=== PATIENT | female | born 1935 | race Caucasian/White ===

== ENCOUNTER 2018-03-08 13:58 | Inpatient (IN) | payer SELFPAY ==
[~2018-03-08] VITALS: Ht 167.6 cm; Wt 97.4 kg
[~2018-03-08 13:58] MED LIST: AMLO5 PO; Amoxicillin500 MG PO; INSULANPEN SC; LOSA50 PO; Triamcinolone A15 G3 TD
[2018-03-08 15:23] LABS: BASOPHILS ABSOLUTE AUTO 0.05 K/mm3 (0.00-0.23); BASOPHILS PERCENT AUTO 1 % (0-2); EOSINOPHILS PERCENT AUTO 1 % (0-6); Hematocrit 38.7 % (33.0-51.0); Hemoglobin 12.6 g/dL (11.5-16.0); IMMATURE GRAN ABSOLUTE AUTO 0.06 K/mm3 (0.00-0.10); IMMATURE GRAN PERCENT AUTO 1 % (0-1); LYMPHOCYTES ABSOLUTE AUTO 1.66 K/mm3 (0.84-5.20); LYMPHOCYTES PERCENT AUTO 17 % (21-46); MONOCYTES ABSOLUTE AUTO 0.74 K/mm3 (0.16-1.47); MONOCYTES PERCENT AUTO 8 % (4-13); Mean Corpuscular HGB 27.4 pg (26.0-34.0); Mean Corpuscular HGB Conc 32.6 g/dL (31.5-36.5); Mean Corpuscular Volume 84 fL (80-100); Mean Platelet Volume 10.2 fL (9.1-12.4); NEUTROPHILS ABSOLUTE AUTO 6.98 K/mm3 (1.96-9.15); NEUTROPHILS PERCENT AUTO 73 % (41-73); Platelet Count 282 K/mm3 (150-400); RDW Coefficient Variation 13.2 % (11.7-14.2); RDW Standard Deviation 40.4 fL (35.1-46.3); White Blood Cell Count 9.59 K/mm3 (4.00-11.30)
[2018-03-08 15:43] LABS: Alanine Aminotransfer (ALT/SGP 26 U/L (12-78); Albumin, Blood 3.4 g/dL (3.4-5.0); Albumin/Globulin Ratio 0.8 (0.8-1.8); Alk Phos 122 U/L (50-136); Anion Gap 7 mmol/L (6-16); Aspartate Aminotrans (AST/SGOT 16 U/L (12-37); Bilirubin, Total 0.4 mg/dL (0.1-1.0); Blood Urea Nitrogen 21 mg/dL (8-24); Bun/Creatinine Ratio 35.7 (12.0-20.0); CO2, Blood 26 mmol/L (21-32); Calcium, Blood 9.3 mg/dL (8.5-10.1); Chloride, Blood 99 mmol/L (98-108); Creatinine, Blood 0.59 mg/dL (0.40-1.00); Globulin, Blood 4.4 g/dL (2.2-4.0); Glomerular Filtration Rate >60 (60-); Glucose, Blood 401 mg/dL (70-99); Potassium, Blood 4.5 mmol/L (3.5-5.5); Sodium, Blood 132 mmol/L (136-145); Total Protein, Blood 7.8 g/dL (6.4-8.2)
[2018-03-08] MEDS ORDERED: Humalog Mi100 UNIT/4 SC (16:44)
[2018-03-08] MEDS ORDERED: Bumetanide0.5 MG PO (19:03)
[2018-03-09 04:03] LABS: BASOPHILS ABSOLUTE AUTO 0.04 K/mm3 (0.00-0.23); BASOPHILS PERCENT AUTO 1 % (0-2); EOSINOPHILS ABSOLUTE AUTO 0.14 K/mm3 (0.00-0.68); EOSINOPHILS PERCENT AUTO 2 % (0-6); Hematocrit 35.1 % (33.0-51.0); Hemoglobin 11.3 g/dL (11.5-16.0); IMMATURE GRAN ABSOLUTE AUTO 0.02 K/mm3 (0.00-0.10); IMMATURE GRAN PERCENT AUTO 0 % (0-1); LYMPHOCYTES ABSOLUTE AUTO 2.16 K/mm3 (0.84-5.20); LYMPHOCYTES PERCENT AUTO 26 % (21-46); MONOCYTES ABSOLUTE AUTO 0.83 K/mm3 (0.16-1.47); MONOCYTES PERCENT AUTO 10 % (4-13); Mean Corpuscular HGB 26.8 pg (26.0-34.0); Mean Corpuscular HGB Conc 32.2 g/dL (31.5-36.5); Mean Corpuscular Volume 83 fL (80-100); Mean Platelet Volume 10.3 fL (9.1-12.4); NEUTROPHILS ABSOLUTE AUTO 5.19 K/mm3 (1.96-9.15); NEUTROPHILS PERCENT AUTO 62 % (41-73); Platelet Count 278 K/mm3 (150-400); RDW Coefficient Variation 13.2 % (11.7-14.2); RDW Standard Deviation 40.1 fL (35.1-46.3); Red Blood Cell Count 4.21 M/mm3 (3.80-5.20); White Blood Cell Count 8.38 K/mm3 (4.00-11.30)
[2018-03-09 04:24] LABS: Anion Gap 7 mmol/L (6-16); Blood Urea Nitrogen 17 mg/dL (8-24); Bun/Creatinine Ratio 27.5 (12.0-20.0); CO2, Blood 27 mmol/L (21-32); Chloride, Blood 104 mmol/L (98-108); Creatinine, Blood 0.62 mg/dL (0.40-1.00); Glomerular Filtration Rate >60 (60-); Glucose, Blood 169 mg/dL (70-99); Potassium, Blood 3.9 mmol/L (3.5-5.5); Sodium, Blood 138 mmol/L (136-145)
[2018-03-10 04:48] LABS: BASOPHILS ABSOLUTE AUTO 0.05 K/mm3 (0.00-0.23); BASOPHILS PERCENT AUTO 1 % (0-2); EOSINOPHILS ABSOLUTE AUTO 0.18 K/mm3 (0.00-0.68); EOSINOPHILS PERCENT AUTO 2 % (0-6); Hematocrit 35.1 % (33.0-51.0); Hemoglobin 11.4 g/dL (11.5-16.0); IMMATURE GRAN ABSOLUTE AUTO 0.03 K/mm3 (0.00-0.10); IMMATURE GRAN PERCENT AUTO 0 % (0-1); LYMPHOCYTES ABSOLUTE AUTO 1.88 K/mm3 (0.84-5.20); LYMPHOCYTES PERCENT AUTO 25 % (21-46); MONOCYTES PERCENT AUTO 11 % (4-13); Mean Corpuscular HGB 27.3 pg (26.0-34.0); Mean Corpuscular HGB Conc 32.5 g/dL (31.5-36.5); Mean Corpuscular Volume 84 fL (80-100); NEUTROPHILS ABSOLUTE AUTO 4.52 K/mm3 (1.96-9.15); NEUTROPHILS PERCENT AUTO 61 % (41-73); Platelet Count 275 K/mm3 (150-400); RDW Coefficient Variation 13.5 % (11.7-14.2); RDW Standard Deviation 41.9 fL (35.1-46.3); Red Blood Cell Count 4.18 M/mm3 (3.80-5.20); White Blood Cell Count 7.46 K/mm3 (4.00-11.30)
[2018-03-10 05:10] LABS: Anion Gap 8 mmol/L (6-16); Blood Urea Nitrogen 18 mg/dL (8-24); Bun/Creatinine Ratio 25.4 (12.0-20.0); CO2, Blood 26 mmol/L (21-32); Calcium, Blood 8.7 mg/dL (8.5-10.1); Chloride, Blood 106 mmol/L (98-108); Creatinine, Blood 0.71 mg/dL (0.40-1.00); Glomerular Filtration Rate >60 (60-); Glucose, Blood 156 mg/dL (70-99); Potassium, Blood 4.1 mmol/L (3.5-5.5); Sodium, Blood 140 mmol/L (136-145)
[2018-03-10 05:15] LABS: Thyroid Stimulating Hormone 0.285 uIU/mL (0.360-4.800)
[2018-03-12 04:58] LABS: BASOPHILS ABSOLUTE AUTO 0.03 K/mm3 (0.00-0.23); BASOPHILS PERCENT AUTO 1 % (0-2); EOSINOPHILS ABSOLUTE AUTO 0.21 K/mm3 (0.00-0.68); EOSINOPHILS PERCENT AUTO 4 % (0-6); Hematocrit 33.6 % (33.0-51.0); Hemoglobin 10.8 g/dL (11.5-16.0); IMMATURE GRAN ABSOLUTE AUTO 0.03 K/mm3 (0.00-0.10); IMMATURE GRAN PERCENT AUTO 1 % (0-1); LYMPHOCYTES ABSOLUTE AUTO 1.66 K/mm3 (0.84-5.20); LYMPHOCYTES PERCENT AUTO 28 % (21-46); MONOCYTES ABSOLUTE AUTO 0.64 K/mm3 (0.16-1.47); MONOCYTES PERCENT AUTO 11 % (4-13); Mean Corpuscular HGB 27.1 pg (26.0-34.0); Mean Corpuscular HGB Conc 32.1 g/dL (31.5-36.5); Mean Corpuscular Volume 84 fL (80-100); NEUTROPHILS ABSOLUTE AUTO 3.35 K/mm3 (1.96-9.15); NEUTROPHILS PERCENT AUTO 57 % (41-73); Platelet Count 287 K/mm3 (150-400); RDW Coefficient Variation 13.6 % (11.7-14.2); RDW Standard Deviation 41.9 fL (35.1-46.3); Red Blood Cell Count 3.99 M/mm3 (3.80-5.20); White Blood Cell Count 5.92 K/mm3 (4.00-11.30)
[2018-03-12 05:25] LABS: Anion Gap 8 mmol/L (6-16); Blood Urea Nitrogen 22 mg/dL (8-24); Bun/Creatinine Ratio 30.1 (12.0-20.0); CO2, Blood 27 mmol/L (21-32); Calcium, Blood 8.8 mg/dL (8.5-10.1); Chloride, Blood 107 mmol/L (98-108); Creatinine, Blood 0.73 mg/dL (0.40-1.00); Glomerular Filtration Rate >60 (60-); Glucose, Blood 92 mg/dL (70-99); Sodium, Blood 142 mmol/L (136-145)
[2018-03-14 04:51] LABS: BASOPHILS ABSOLUTE AUTO 0.04 K/mm3 (0.00-0.23); BASOPHILS PERCENT AUTO 1 % (0-2); EOSINOPHILS ABSOLUTE AUTO 0.18 K/mm3 (0.00-0.68); EOSINOPHILS PERCENT AUTO 3 % (0-6); Hematocrit 32.6 % (33.0-51.0); Hemoglobin 10.3 g/dL (11.5-16.0); IMMATURE GRAN ABSOLUTE AUTO 0.03 K/mm3 (0.00-0.10); IMMATURE GRAN PERCENT AUTO 1 % (0-1); LYMPHOCYTES PERCENT AUTO 26 % (21-46); MONOCYTES ABSOLUTE AUTO 0.83 K/mm3 (0.16-1.47); MONOCYTES PERCENT AUTO 13 % (4-13); Mean Corpuscular HGB 26.8 pg (26.0-34.0); Mean Corpuscular HGB Conc 31.6 g/dL (31.5-36.5); Mean Corpuscular Volume 85 fL (80-100); Mean Platelet Volume 10.5 fL (9.1-12.4); NEUTROPHILS ABSOLUTE AUTO 3.77 K/mm3 (1.96-9.15); NEUTROPHILS PERCENT AUTO 58 % (41-73); Platelet Count 283 K/mm3 (150-400); RDW Coefficient Variation 13.6 % (11.7-14.2); RDW Standard Deviation 41.9 fL (35.1-46.3); Red Blood Cell Count 3.84 M/mm3 (3.80-5.20); White Blood Cell Count 6.55 K/mm3 (4.00-11.30)
[2018-03-14 05:11] LABS: Anion Gap 6 mmol/L (6-16); Blood Urea Nitrogen 19 mg/dL (8-24); Bun/Creatinine Ratio 25.6 (12.0-20.0); CO2, Blood 27 mmol/L (21-32); Calcium, Blood 8.5 mg/dL (8.5-10.1); Chloride, Blood 106 mmol/L (98-108); Creatinine, Blood 0.74 mg/dL (0.40-1.00); Glomerular Filtration Rate >60 (60-); Glucose, Blood 112 mg/dL (70-99); Potassium, Blood 4.2 mmol/L (3.5-5.5); Sodium, Blood 139 mmol/L (136-145)
[2018-03-16] MEDS ORDERED: ACET325 PO (11:15)
[2018-03-16] MEDS ORDERED: AMLO5 PO (11:15)
[2018-03-16] MEDS ORDERED: ASCO500 PO (11:15)
[2018-03-16] MEDS ORDERED: HUMALOG JU100 UNIT/1 (11:16)
[2018-03-16] MEDS ORDERED: INSULANPEN SC (11:16)
[2018-03-16] MEDS ORDERED: SACC250C PO (11:17)
[2018-03-16] MEDS ORDERED: ZINC220 PO (11:17)
[2018-03-16] MEDS ORDERED: LOSA50 PO (11:17)
[2018-03-16] MEDS ORDERED: CLIN300 PO (11:18)
== END 2018-03-16 15:39 | disposition home or self-care (01) | DRG 593 ==
LOC: ER 13:58 → MEDS 18:50 → ENPENDDIS 03-16 11:05 → MEDS 03-16 15:39
PROVIDERS: Emergency Medicine; Hospitalist; Internal Medicine
DX: L89.622 Pressure ulcer of left heel, stage 2 (principal); L03.116 Cellulitis of left lower limb; L03.115 Cellulitis of right lower limb; Z79.4 Long term (current) use of insulin; M19.90 Unspecified osteoarthritis, unspecified site; E11.65 Type 2 diabetes mellitus with hyperglycemia; I10 Essential (primary) hypertension; Z91.14 Patient's other noncompliance with medication regimen; L85.3 Xerosis cutis; E11.42 Type 2 diabetes mellitus with diabetic polyneuropathy; E11.51 Type 2 diabetes mellitus with diabetic peripheral angiopathy without gangrene; E11.621 Type 2 diabetes mellitus with foot ulcer; I83.029 Varicose veins of left lower extremity with ulcer of unspecified site; E66.9 Obesity, unspecified
CPT/HCPCS: 36415; 80048; 80053; 82947; 83036; 83605; 84443; 85025; 87040; 87070; 87075; 87077; 87147; 87186; 87205; 93005; 93010; 93922; 93970; 96365; 96372; 99284-25; J0690; J1650; J1815; J7030

== ENCOUNTER 2018-03-21 09:23 | Emergency (ER) | payer SELFPAY ==
[~2018-03-21] VITALS: Ht 167.6 cm; Wt 108.9 kg
[~2018-03-21 09:23] MED LIST changes: +ACET325 PO; +ASCO500 PO; +Bumetanide0.5 MG PO; +CLIN300 PO; +HUMALOG JU100 UNIT/1; +Humalog Mi100 UNIT/4 SC; +SACC250C PO; +ZINC220 PO
[2018-03-21 11:59] LABS: BASOPHILS ABSOLUTE AUTO 0.06 K/mm3 (0.00-0.23); BASOPHILS PERCENT AUTO 1 % (0-2); EOSINOPHILS ABSOLUTE AUTO 0.09 K/mm3 (0.00-0.68); EOSINOPHILS PERCENT AUTO 1 % (0-6); Hematocrit 31.8 % (33.0-51.0); Hemoglobin 10.4 g/dL (11.5-16.0); IMMATURE GRAN ABSOLUTE AUTO 0.03 K/mm3 (0.00-0.10); IMMATURE GRAN PERCENT AUTO 0 % (0-1); LYMPHOCYTES ABSOLUTE AUTO 1.45 K/mm3 (0.84-5.20); LYMPHOCYTES PERCENT AUTO 16 % (21-46); MONOCYTES ABSOLUTE AUTO 0.67 K/mm3 (0.16-1.47); MONOCYTES PERCENT AUTO 7 % (4-13); Mean Corpuscular HGB 27.7 pg (26.0-34.0); Mean Corpuscular HGB Conc 32.7 g/dL (31.5-36.5); Mean Corpuscular Volume 85 fL (80-100); NEUTROPHILS ABSOLUTE AUTO 6.92 K/mm3 (1.96-9.15); NEUTROPHILS PERCENT AUTO 75 % (41-73); Platelet Count 347 K/mm3 (150-400); RDW Coefficient Variation 13.4 % (11.7-14.2); RDW Standard Deviation 41.6 fL (35.1-46.3); Red Blood Cell Count 3.75 M/mm3 (3.80-5.20); White Blood Cell Count 9.22 K/mm3 (4.00-11.30)
[2018-03-21 12:14] LABS: Anion Gap 6 mmol/L (6-16); Blood Urea Nitrogen 20 mg/dL (8-24); Bun/Creatinine Ratio 31.5 (12.0-20.0); CO2, Blood 25 mmol/L (21-32); Chloride, Blood 105 mmol/L (98-108); Creatinine, Blood 0.63 mg/dL (0.40-1.00); Glomerular Filtration Rate >60 (60-); Glucose, Blood 230 mg/dL (70-99); Potassium, Blood 4.6 mmol/L (3.5-5.5); Sodium, Blood 136 mmol/L (136-145)
== END 2018-03-21 16:30 | disposition home or self-care (01) ==
LOC: ER 09:23
PROVIDERS: Emergency Medicine
DX: E11.622 Type 2 diabetes mellitus with other skin ulcer (principal); L97.329 Non-pressure chronic ulcer of left ankle with unspecified severity; L03.116 Cellulitis of left lower limb; E11.9 Type 2 diabetes mellitus without complications; Z88.2 Allergy status to sulfonamides; Z88.8 Allergy status to other drugs, medicaments and biological substances; Z79.899 Other long term (current) drug therapy; Z79.4 Long term (current) use of insulin
CPT/HCPCS: 36415; 73723; 80048; 85025; 85651; 86140; 99284-25; A9577

== ENCOUNTER 2018-03-29 14:00 | Day surgery (SDC) | payer SELFPAY | END 2018-03-29 17:20 | disposition home or self-care (01) | LOC: WOUND 14:00 | PROC: 0HBMXZZ Excision of Right Foot Skin, External Approach (ICD-10-PCS; principal; 2018-03-29) | DX: E11.621 Type 2 diabetes mellitus with foot ulcer (principal); L97.512 Non-pressure chronic ulcer of other part of right foot with fat layer exposed; I87.2 Venous insufficiency (chronic) (peripheral); I70.25 Atherosclerosis of native arteries of other extremities with ulceration; R60.0 Localized edema | CPT/HCPCS: G0463 ==

== ENCOUNTER 2018-04-05 14:45 | Day surgery (SDC) | payer SELFPAY | END 2018-04-05 16:00 | disposition home or self-care (01) | LOC: WOUND 14:45 | DX: I70.238 Atherosclerosis of native arteries of right leg with ulceration of other part of lower leg (principal); I70.248 Atherosclerosis of native arteries of left leg with ulceration of other part of lower leg; I70.235 Atherosclerosis of native arteries of right leg with ulceration of other part of foot; I70.245 Atherosclerosis of native arteries of left leg with ulceration of other part of foot; E11.622 Type 2 diabetes mellitus with other skin ulcer; E11.621 Type 2 diabetes mellitus with foot ulcer; L97.822 Non-pressure chronic ulcer of other part of left lower leg with fat layer exposed; L97.812 Non-pressure chronic ulcer of other part of right lower leg with fat layer exposed; L97.529 Non-pressure chronic ulcer of other part of left foot with unspecified severity; L97.519 Non-pressure chronic ulcer of other part of right foot with unspecified severity; I87.2 Venous insufficiency (chronic) (peripheral); R60.0 Localized edema ==

== ENCOUNTER 2018-04-12 00:15 | Day surgery (SDC) | payer OTHER | END 2018-04-12 22:41 | disposition home or self-care (01) | LOC: WOUND 00:15 | DX: I70.238 Atherosclerosis of native arteries of right leg with ulceration of other part of lower leg (principal); I70.248 Atherosclerosis of native arteries of left leg with ulceration of other part of lower leg; E11.622 Type 2 diabetes mellitus with other skin ulcer; L97.822 Non-pressure chronic ulcer of other part of left lower leg with fat layer exposed; L97.812 Non-pressure chronic ulcer of other part of right lower leg with fat layer exposed; I87.2 Venous insufficiency (chronic) (peripheral); R60.0 Localized edema ==

== ENCOUNTER 2018-04-19 09:21 | Day surgery (SDC) | payer SELFPAY | END 2018-04-19 22:46 | disposition home or self-care (01) | LOC: WOUND 09:21 | DX: I87.2 Venous insufficiency (chronic) (peripheral) (principal); E11.622 Type 2 diabetes mellitus with other skin ulcer; L97.812 Non-pressure chronic ulcer of other part of right lower leg with fat layer exposed; L97.822 Non-pressure chronic ulcer of other part of left lower leg with fat layer exposed; E11.621 Type 2 diabetes mellitus with foot ulcer; R60.0 Localized edema; I70.25 Atherosclerosis of native arteries of other extremities with ulceration ==

== ENCOUNTER 2018-07-05 00:13 | Day surgery (SDC) | payer SELFPAY | END 2018-07-05 22:49 | disposition home or self-care (01) | LOC: WOUND 00:13 | DX: E11.621 Type 2 diabetes mellitus with foot ulcer (principal); L89.312 Pressure ulcer of right buttock, stage 2; L97.822 Non-pressure chronic ulcer of other part of left lower leg with fat layer exposed; E11.622 Type 2 diabetes mellitus with other skin ulcer; I87.2 Venous insufficiency (chronic) (peripheral); R60.0 Localized edema; I70.25 Atherosclerosis of native arteries of other extremities with ulceration | CPT/HCPCS: G0463 ==

== ENCOUNTER 2018-07-12 10:30 | Day surgery (SDC) | payer SELFPAY | END 2018-07-12 23:05 | disposition home or self-care (01) | LOC: WOUND 10:30 | DX: E11.622 Type 2 diabetes mellitus with other skin ulcer (principal); L97.822 Non-pressure chronic ulcer of other part of left lower leg with fat layer exposed; L89.312 Pressure ulcer of right buttock, stage 2; I87.2 Venous insufficiency (chronic) (peripheral); R60.0 Localized edema; I70.25 Atherosclerosis of native arteries of other extremities with ulceration ==

== ENCOUNTER 2018-07-19 10:20 | Day surgery (SDC) | payer SELFPAY | END 2018-07-19 22:41 | disposition home or self-care (01) | LOC: WOUND 10:20 | PROC: 0HBLXZZ Excision of Left Lower Leg Skin, External Approach (ICD-10-PCS; principal; 2018-07-19) | DX: E11.622 Type 2 diabetes mellitus with other skin ulcer (principal); L97.229 Non-pressure chronic ulcer of left calf with unspecified severity; E11.621 Type 2 diabetes mellitus with foot ulcer ==

== ENCOUNTER 2018-07-26 00:08 | Day surgery (SDC) | payer SELFPAY | END 2018-07-26 22:48 | disposition home or self-care (01) | LOC: WOUND 00:08 | DX: E11.621 Type 2 diabetes mellitus with foot ulcer (principal); L97.822 Non-pressure chronic ulcer of other part of left lower leg with fat layer exposed; E11.622 Type 2 diabetes mellitus with other skin ulcer; L89.312 Pressure ulcer of right buttock, stage 2; I87.2 Venous insufficiency (chronic) (peripheral); R60.0 Localized edema; I70.25 Atherosclerosis of native arteries of other extremities with ulceration ==

== ENCOUNTER 2018-08-02 00:58 | Day surgery (SDC) | payer SELFPAY | END 2018-08-02 23:59 | disposition home or self-care (01) | LOC: WOUND 00:58 | DX: Z48.00 Encounter for change or removal of nonsurgical wound dressing (principal); E11.622 Type 2 diabetes mellitus with other skin ulcer; E11.621 Type 2 diabetes mellitus with foot ulcer; L97.822 Non-pressure chronic ulcer of other part of left lower leg with fat layer exposed; L89.312 Pressure ulcer of right buttock, stage 2; I87.2 Venous insufficiency (chronic) (peripheral) | CPT/HCPCS: G0463 ==

== ENCOUNTER 2018-08-09 09:45 | Day surgery (SDC) | payer SELFPAY | END 2018-08-09 15:36 | disposition home health service (06) | LOC: WOUND 09:45 | DX: I70.248 Atherosclerosis of native arteries of left leg with ulceration of other part of lower leg (principal); E11.622 Type 2 diabetes mellitus with other skin ulcer; L97.822 Non-pressure chronic ulcer of other part of left lower leg with fat layer exposed; L89.312 Pressure ulcer of right buttock, stage 2; I87.2 Venous insufficiency (chronic) (peripheral); R60.0 Localized edema; Z79.4 Long term (current) use of insulin ==

== ENCOUNTER 2018-08-16 10:30 | Day surgery (SDC) | payer SELFPAY | END 2018-08-16 22:50 | disposition home or self-care (01) | LOC: WOUND 10:30 | DX: E11.622 Type 2 diabetes mellitus with other skin ulcer (principal); L97.822 Non-pressure chronic ulcer of other part of left lower leg with fat layer exposed; L89.312 Pressure ulcer of right buttock, stage 2; E11.51 Type 2 diabetes mellitus with diabetic peripheral angiopathy without gangrene; R60.0 Localized edema; I70.25 Atherosclerosis of native arteries of other extremities with ulceration ==

== ENCOUNTER 2018-08-23 10:15 | Day surgery (SDC) | payer SELFPAY | END 2018-08-23 22:57 | disposition home or self-care (01) | LOC: WOUND 10:15 | DX: E11.622 Type 2 diabetes mellitus with other skin ulcer (principal); I70.248 Atherosclerosis of native arteries of left leg with ulceration of other part of lower leg; L97.822 Non-pressure chronic ulcer of other part of left lower leg with fat layer exposed; L89.312 Pressure ulcer of right buttock, stage 2; E11.51 Type 2 diabetes mellitus with diabetic peripheral angiopathy without gangrene; R60.0 Localized edema ==

== ENCOUNTER 2018-09-06 00:54 | Day surgery (SDC) | payer SELFPAY | END 2018-09-07 23:15 | disposition home or self-care (01) | LOC: WOUND 00:54 | DX: E11.621 Type 2 diabetes mellitus with foot ulcer (principal); L97.822 Non-pressure chronic ulcer of other part of left lower leg with fat layer exposed; L89.312 Pressure ulcer of right buttock, stage 2; E11.622 Type 2 diabetes mellitus with other skin ulcer; I87.2 Venous insufficiency (chronic) (peripheral); R60.0 Localized edema; I70.25 Atherosclerosis of native arteries of other extremities with ulceration; Z79.4 Long term (current) use of insulin | CPT/HCPCS: G0463 ==

== ENCOUNTER 2018-09-12 10:00 | Day surgery (SDC) | payer SELFPAY | END 2018-09-13 13:11 | disposition home or self-care (01) | LOC: WOUND 10:00 | DX: E11.621 Type 2 diabetes mellitus with foot ulcer (principal); L97.822 Non-pressure chronic ulcer of other part of left lower leg with fat layer exposed; E11.622 Type 2 diabetes mellitus with other skin ulcer; L89.312 Pressure ulcer of right buttock, stage 2; I87.2 Venous insufficiency (chronic) (peripheral); R60.0 Localized edema; I70.25 Atherosclerosis of native arteries of other extremities with ulceration; Z79.4 Long term (current) use of insulin ==

== ENCOUNTER 2018-09-27 00:41 | Day surgery (SDC) | payer MEDICARE, SELFPAY | END 2018-09-27 12:00 | disposition home or self-care (01) | LOC: WOUND 00:41 | DX: E11.621 Type 2 diabetes mellitus with foot ulcer (principal); E11.622 Type 2 diabetes mellitus with other skin ulcer; E11.51 Type 2 diabetes mellitus with diabetic peripheral angiopathy without gangrene; I70.248 Atherosclerosis of native arteries of left leg with ulceration of other part of lower leg; I70.245 Atherosclerosis of native arteries of left leg with ulceration of other part of foot; L97.525 Non-pressure chronic ulcer of other part of left foot with muscle involvement without evidence of necrosis; L97.822 Non-pressure chronic ulcer of other part of left lower leg with fat layer exposed; L89.312 Pressure ulcer of right buttock, stage 2; I87.2 Venous insufficiency (chronic) (peripheral) ==

== ENCOUNTER 2018-10-11 00:25 | Day surgery (SDC) | payer MEDICARE, SELFPAY | END 2018-10-11 23:20 | disposition home or self-care (01) | LOC: WOUND 00:25 | DX: E11.621 Type 2 diabetes mellitus with foot ulcer (principal); E11.622 Type 2 diabetes mellitus with other skin ulcer; E11.51 Type 2 diabetes mellitus with diabetic peripheral angiopathy without gangrene; I70.248 Atherosclerosis of native arteries of left leg with ulceration of other part of lower leg; L97.822 Non-pressure chronic ulcer of other part of left lower leg with fat layer exposed; L97.525 Non-pressure chronic ulcer of other part of left foot with muscle involvement without evidence of necrosis; L97.529 Non-pressure chronic ulcer of other part of left foot with unspecified severity; L89.312 Pressure ulcer of right buttock, stage 2; I87.2 Venous insufficiency (chronic) (peripheral); I10 Essential (primary) hypertension ==

== ENCOUNTER 2018-10-18 00:46 | Day surgery (SDC) | payer SELFPAY | END 2018-10-18 23:06 | disposition home or self-care (01) | LOC: WOUND 00:46 | DX: E11.621 Type 2 diabetes mellitus with foot ulcer (principal); E11.622 Type 2 diabetes mellitus with other skin ulcer; L97.522 Non-pressure chronic ulcer of other part of left foot with fat layer exposed; L97.822 Non-pressure chronic ulcer of other part of left lower leg with fat layer exposed; L89.312 Pressure ulcer of right buttock, stage 2; E11.51 Type 2 diabetes mellitus with diabetic peripheral angiopathy without gangrene; I70.25 Atherosclerosis of native arteries of other extremities with ulceration; I10 Essential (primary) hypertension; I87.2 Venous insufficiency (chronic) (peripheral); M19.90 Unspecified osteoarthritis, unspecified site ==

== ENCOUNTER 2018-10-25 10:11 | Day surgery (SDC) | payer SELFPAY | END 2018-10-25 23:48 | disposition home or self-care (01) | LOC: WOUND 10:11 | DX: E11.621 Type 2 diabetes mellitus with foot ulcer (principal); L97.522 Non-pressure chronic ulcer of other part of left foot with fat layer exposed; E11.622 Type 2 diabetes mellitus with other skin ulcer; L97.822 Non-pressure chronic ulcer of other part of left lower leg with fat layer exposed; L89.312 Pressure ulcer of right buttock, stage 2; E11.51 Type 2 diabetes mellitus with diabetic peripheral angiopathy without gangrene; I70.25 Atherosclerosis of native arteries of other extremities with ulceration; I87.2 Venous insufficiency (chronic) (peripheral); I10 Essential (primary) hypertension; M19.90 Unspecified osteoarthritis, unspecified site; Z79.4 Long term (current) use of insulin ==

== ENCOUNTER 2018-11-01 10:15 | Day surgery (SDC) | payer SELFPAY | END 2018-11-01 23:29 | disposition home or self-care (01) | LOC: WOUND 10:15 | DX: I87.2 Venous insufficiency (chronic) (peripheral) (principal); E11.622 Type 2 diabetes mellitus with other skin ulcer; L97.822 Non-pressure chronic ulcer of other part of left lower leg with fat layer exposed; E11.621 Type 2 diabetes mellitus with foot ulcer; L97.525 Non-pressure chronic ulcer of other part of left foot with muscle involvement without evidence of necrosis; L89.312 Pressure ulcer of right buttock, stage 2; I70.25 Atherosclerosis of native arteries of other extremities with ulceration; I10 Essential (primary) hypertension; M19.90 Unspecified osteoarthritis, unspecified site | CPT/HCPCS: 87070; 87205 ==

== ENCOUNTER 2018-11-08 10:00 | Day surgery (SDC) | payer OTHER | END 2018-11-08 23:00 | disposition home or self-care (01) | LOC: WOUND 10:00 | DX: E11.621 Type 2 diabetes mellitus with foot ulcer (principal); E11.622 Type 2 diabetes mellitus with other skin ulcer; L97.522 Non-pressure chronic ulcer of other part of left foot with fat layer exposed; L97.822 Non-pressure chronic ulcer of other part of left lower leg with fat layer exposed; L89.312 Pressure ulcer of right buttock, stage 2; I10 Essential (primary) hypertension; E11.51 Type 2 diabetes mellitus with diabetic peripheral angiopathy without gangrene; I70.25 Atherosclerosis of native arteries of other extremities with ulceration; I87.2 Venous insufficiency (chronic) (peripheral) ==

== ENCOUNTER 2018-11-17 21:04 | Inpatient (IN) | payer MEDICARE, OTHER ==
[~2018-11-17] VITALS: Ht 165.1 cm; Wt 112.5 kg
[2018-11-17] MEDS ORDERED: POTCHL10ER PO (21:31)
[2018-11-17 21:42] LABS: BASOPHILS ABSOLUTE AUTO 0.07 K/mm3 (0.00-0.23); BASOPHILS PERCENT AUTO 1 % (0-2); EOSINOPHILS PERCENT AUTO 1 % (0-6); Hematocrit 35.3 % (33.0-51.0); Hemoglobin 11.2 g/dL (11.5-16.0); IMMATURE GRAN ABSOLUTE AUTO 0.11 K/mm3 (0.00-0.10); IMMATURE GRAN PERCENT AUTO 1 % (0-1); LYMPHOCYTES ABSOLUTE AUTO 1.72 K/mm3 (0.84-5.20); LYMPHOCYTES PERCENT AUTO 19 % (21-46); MONOCYTES PERCENT AUTO 8 % (4-13); Mean Corpuscular HGB 27.1 pg (26.0-34.0); Mean Corpuscular HGB Conc 31.7 g/dL (31.5-36.5); Mean Corpuscular Volume 86 fL (80-100); Mean Platelet Volume 10.4 fL (9.1-12.4); NEUTROPHILS ABSOLUTE AUTO 6.44 K/mm3 (1.96-9.15); NEUTROPHILS PERCENT AUTO 70 % (41-73); Platelet Count 320 K/mm3 (150-400); RDW Coefficient Variation 13.5 % (11.7-14.2); RDW Standard Deviation 42.5 fL (35.1-46.3); Red Blood Cell Count 4.13 M/mm3 (3.80-5.20); White Blood Cell Count 9.14 K/mm3 (4.00-11.30)
[2018-11-17 21:58] LABS: International Normalized Ratio 1.01; Prothrombin Time Results 10.7 Sec (9.7-11.5)
[2018-11-17 22:03] LABS: Alanine Aminotransfer (ALT/SGP 30 U/L (12-78); Albumin, Blood 3.2 g/dL (3.4-5.0); Albumin/Globulin Ratio 0.8 (0.8-1.8); Alk Phos 123 U/L (50-136); Anion Gap 9 mmol/L (6-16); Aspartate Aminotrans (AST/SGOT 28 U/L (12-37); Bilirubin, Total 0.4 mg/dL (0.1-1.0); Blood Urea Nitrogen 35 mg/dL (8-24); Bun/Creatinine Ratio 28.2 (12.0-20.0); CO2, Blood 22 mmol/L (21-32); Calcium, Blood 8.7 mg/dL (8.5-10.1); Chloride, Blood 98 mmol/L (98-108); Creatinine, Blood 1.24 mg/dL (0.40-1.00); Globulin, Blood 3.9 g/dL (2.2-4.0); Glomerular Filtration Rate 44 (60-); Glucose, Blood 398 mg/dL (70-99); Potassium, Blood 5.5 mmol/L (3.5-5.5); Sodium, Blood 129 mmol/L (136-145); Total Protein, Blood 7.1 g/dL (6.4-8.2); Troponin I <0.015 ng/mL (0.000-0.040)
[2018-11-17] MEDS ORDERED: PIOG15 PO (22:08)
--- NOTE | 2018-11-18 00:25 | NUR ---
PATIENT ARRIVED TO ICU 14 VIA GURNEY FROM ED WITH DX OF COMPLETE HEART BLOCK. ISOPROTERENOL DRIP INFUSING AT 2 MCG. PATIENT TRANSFER TO ICU BED USING SLIDER SHEET AND PLACED ON ICU MONITORS. MARINE STEAM FITTER HELPER SHOWING SEVERAL QRS, SEE STRIPS. RATE RANGING FROM 38-70'S. PATIENTS ONLY COMPLAINT IS OF A MYERS WHICH SHE HAS HAD OFF AND ON SINCE 2017. PATIENT HAS 2 SCABBED WOUNDS TO COCCYX AREA. PATIENT HAS A WOUND TO LEFT HEAL AND LEFT CALF, PATIENT HAS BEEN GETTING DRESSING CHANGES WITH [facility]INIC. BOTH LEGS DISCOLORED AND WITH EDEMA.
--- NOTE | 2018-11-18 03:56 | NUR ---
DR GARCIA IN TO SEE PATIENT. PLAN TO GO TO ELECTRIC DISTRIBUTION ENGINEER LATER TODAY. KEEP NPO AT THIS TIME
[2018-11-18 05:07] LABS: Bun/Creatinine Ratio 23.6 (12.0-20.0); Calcium, Blood 8.3 mg/dL (8.5-10.1); Creatinine, Blood 1.61 mg/dL (0.40-1.00); Potassium, Blood 4.7 mmol/L (3.5-5.5)
--- NOTE | 2018-11-18 07:24 | NUR ---
SUMMARY PATIENT AWAKE MOST OF THE NIGHT WITH ON AND OFF NAUSEA. PATIENT MEDICATED WITH ZOFRAN WITH LITTLE RELIEF. PATIENT HEART RATE CONTINUES 50'S ACCELERATED JUNCTIONAL WITH SWITCHING BUNDLE BRACH BLOCK. ISUPREL DRIP CONTINUES AT 2 MCG. PATIENT CONTINUES TO HAVE NO URGE TO VOID AT THIS TIME, ATTENDS REMAIN IN PLACE. DRESSINGS TO WOUNDS CD&I.
--- NOTE | 2018-11-18 07:52 | NUR ---
ASSUMED CARE: PT RESTING QUIETLY. ISUPREL GTT AT 2MCG/MIN. PT'S HR IN 50S WITH JUNCTIONAL RHYTHM. PT AROUSES WHEN SPOKEN TO BUT HARD OF HEARING. STATES SLIGHT NAUSEA AT THIS TIME. PLAN FOR MICROSTRATEGY REPORTS DEVELOPER LATER TODAY. NO ACUTE NEEDS OR CONCERNS.
--- NOTE | 2018-11-18 08:38 | NUR ---
CALL TO HEART CENTER TO DETERMINE TIME OF PROCEDURE. UNKNOWN, STATES THEY WILL LOOK INTO IT. PT VOMITED DURING MED PASS SO POS HELD FOR THAT AND DUE TO PROCEDURE. ANTIHYPERTENSIVE HELD DUE TO MEDS GIVEN TO MAINTAIN HR AND DIASTOLIC DECREASED. INSULIN GIVEN DUE TO PT HAVING ELEVATED GLUCOSE. DOUBLE CHECKED INSULIN WITH INDIRA LUNSFORD. PT'S SON AT BEDSIDE. NO FURTHER NEEDS OR CONCERNS AT THIS TIME.
--- NOTE | 2018-11-18 09:30 | NUR ---
DR GARCIA AND DR LAIRD CAME TO SEE PT THIS AM. AWARE THAT MEDS WERE HELD, INCLUDING LOSARTAN. PLAN IS TO TAKE PT TO SPLICER APPRENTICE WITH POSSIBLE PACER PLACED. NO TIME OF YET
[2018-11-18] MEDS ORDERED: Humalog100 UNIT/1 SC (11:20)
[2018-11-18] MEDS ORDERED: Triamcinolone A15 G3 TOP (11:25)
[2018-11-18] MEDS ORDERED: BUME1 PO (11:25)
--- NOTE | 2018-11-18 11:40 | NUR ---
CALL TO DR LAIRD WITH UPDATES OF MED LIST PER PT'S DOCTOR'S OFFICE. ALSO CALLED WOUND CARE CLINIC TO GET SPECIFIC WOUND CARE ORDERS. PT REMAINS ON 3MCG/MIN ISOPROTERONOL GTT AT THIS TIME FOR HR IN 40S.
--- NOTE | 2018-11-18 12:23 | NUR ---
PT TAKEN TO HEART CENTER FOR ANGIO AT THIS TIME. MEDICATED FOR NAUSEA BUT WAS INSTRUCTED BY HEART CENTER STAFF TO HOLD INSULIN
--- NOTE | 2018-11-18 14:56 | NUR ---
PT RETURNED FROM SWIMMING COACH OR INSTRUCTOR WITH TEMPORARY PACEMAKER IN PLACE. TR BAND IN PLACE WITH 15MLS OF AIR. SITE SOFT WITH NO HEMATOMA OR BLEEDING NOTED. GROIN SITE WITH PRESSURE BAG ATTACHED WITH NO BLEEDING OR BRUISING, SOFT. PT RESTING QUIETLY AT THIS TIME.
--- NOTE | 2018-11-18 15:12 | NUR ---
ENGINE MANAGER IN ROOM AT THIS TIME. WILL ATTEMPT SECOND IV AT A LATER TIME.
--- NOTE | 2018-11-18 16:20 | NUR ---
3CC DEFLATED FROM TR BAND
--- NOTE | 2018-11-18 16:56 | NUR ---
Spiritual Care inital visit: Mrs. Yoo did not feel well enough to engage in conversation. Provided quick prayer at bedside. Informed RN of pt's discomfort. I will remain available.
--- NOTE | 2018-11-18 17:53 | NUR ---
PT TILTED IN BED SO SHE COULD EAT DINNER. SPILLED ON SELF, REQUESTED THIS NURSE TO WAIT UNTIL AFTER SHE FINISHED DINNER TO CHANGE GOWN AND LINENS.
--- NOTE | 2018-11-18 18:10 | NUR ---
SHIFT SUMMARY: PT HAS TEMPORARY PACER. PACED AT 69, MV/V SET AT 3. DENIES CHEST PAIN OR SOB. BED TILTED AT THIS TIME WHILE PT ATTEMPTS TO EAT DINNER. CONTINUES TO REQUEST STAFF WAIT ON LINEN CHANGE AND GOWN CHANGE. GROIN SITE AND TR BAND REMAIN SOFT WITHOUT SIGN OF BLEEDING OR HEMOTOMA. 9CC REMOVED FROM TR BAND SO FAR. NO FURTHER NEEDS OR CONCERNS NOTED
--- NOTE | 2018-11-18 19:30 | NUR ---
ASSUMED CARE OF PT PT ALERT AND ORIENTED. TR BAND ON RIGHT RADIAL C/D/I. TRANSVENOUS PACER LOCATED AT R GROIN, SOFT AND NON TENDER. PACER SET TO 69 BPM WITH VOLTAGE OF 3. PT COMPLAINS OF NAUSEA AND VOMITING THAT HASN'T BEEN HELPED BY ZOFRAN OR PHENERGAN. PHONE CALL TO DR BROWN WHO ORDERED STAT ABDOMINAL XRAY AND INSERTION OF OG TUBE. OG INSERTED, CONFIRMED BY XRAY AND HOOKED TO LIS. PT ON 3L NC. PLEASE SEE FULL SHIFT ASSESSMENT.
[2018-11-19 04:35] LABS: BASOPHILS ABSOLUTE AUTO 0.04 K/mm3 (0.00-0.23); BASOPHILS PERCENT AUTO 0 % (0-2); EOSINOPHILS ABSOLUTE AUTO 0.02 K/mm3 (0.00-0.68); EOSINOPHILS PERCENT AUTO 0 % (0-6); Hemoglobin 10.3 g/dL (11.5-16.0); IMMATURE GRAN ABSOLUTE AUTO 0.09 K/mm3 (0.00-0.10); IMMATURE GRAN PERCENT AUTO 1 % (0-1); LYMPHOCYTES PERCENT AUTO 14 % (21-46); MONOCYTES ABSOLUTE AUTO 1.02 K/mm3 (0.16-1.47); MONOCYTES PERCENT AUTO 8 % (4-13); Mean Corpuscular HGB 26.5 pg (26.0-34.0); Mean Corpuscular HGB Conc 31.2 g/dL (31.5-36.5); Mean Corpuscular Volume 85 fL (80-100); Mean Platelet Volume 10.1 fL (9.1-12.4); NEUTROPHILS ABSOLUTE AUTO 10.24 K/mm3 (1.96-9.15); NEUTROPHILS PERCENT AUTO 77 % (41-73); Platelet Count 306 K/mm3 (150-400); RDW Coefficient Variation 14.1 % (11.7-14.2); RDW Standard Deviation 43.7 fL (35.1-46.3); Red Blood Cell Count 3.89 M/mm3 (3.80-5.20); White Blood Cell Count 13.31 K/mm3 (4.00-11.30)
[2018-11-19 04:53] LABS: Bun/Creatinine Ratio 28.7 (12.0-20.0); Calcium, Blood 8.7 mg/dL (8.5-10.1); Creatinine, Blood 1.57 mg/dL (0.40-1.00); Potassium, Blood 4.9 mmol/L (3.5-5.5)
--- NOTE | 2018-11-19 06:20 | NUR ---
SHIFT SUMMARY NO ACUTE CHANGES OVERNIGHT. PT HAD NO FURTHER EPISODES OF VOMTING FOLLOWING THE NG INSERTION. PT ON 2L NC WITH SATS IN THE MID 90'S. VSS. PT TO PRECISION ASSEMBLER THIS MORNING FOR PERMANENT PACER PLACEMENT. WILL REPORT TO DAYSHIFT NURSE.
--- NOTE | 2018-11-19 08:30 | NUR ---
CARE ASSUMED CARE AND REPORT ASSUMED FROM MAADOR LUNSFORD. PT SITTING UP IN BED, CALM, COOPERATIVE AND A/O X 3. C/O DIFFUSE PAIN; AWIAITNG PAIN MEDS FROM . AFEBRILE. R RADIAL SITE IS C/D/I WITH ARM SECURED IN ARMBOARD. TEMPORARY PACEMAKER SECURED IN R GROIN WITH DRESSING C/D/I; PRESSURE BAG INFLATED AND HR 69 WITH VOLTAGE AT 3. BP WNL. SPO2 95% ON 3L NC. BLE RED, WARM AND HAVE PITTING EDEMA; ELEVATED TOLERATED. PT COMPLAINS OF NAUSEA; WILL MEDICATE NEEDED. NGT SECURED AND CLAMPED AT THIS TIME PER MD REQUEST. CALL LIGHT WITHIN REACH. PTS SONS UPDATED ON STATUS. WILL CONTINUE TO MONITOR.
--- NOTE | 2018-11-19 11:55 | NUR ---
REASSESSMENT PT REMAINS IN BED WITH TEMPORARY PACEMAKER. HR SET TO 69, WITH VOLTAGE AT 3. BACKUP BATTERY SECURED IN BACKUP PACER RIGHT OUTSIDE ROOM IF NEEDED. PAIN HAS SLIGHTLY IMPROVED SINCE RECEIVING NORCO AND PT DENIES NAUSEA AT THIS TIME. NGT CLAMPED AT THIS TIME. MD LAIRD AWARE OF OCCULT STOOL RESULTS. BP STABLE. AFEBRILE. R GROIN SITE IS STABLE AND DRESSING IS C/D/I. CALL LIGHT WITHIN REACH. R WRIST ACCESS SITE DRESSING REMAINS C/D/I WITH ARM SECURED IN ARMBOARD. WILL CONTINUE TO MONITOR.
[2018-11-19 17:01] LABS: Source, Urine Voided
[2018-11-19 17:14] LABS: Appearance, Urine Cloudy (Clear); Bilirubin, Urine Neg (Neg); Blood, Urine 4+ (Neg); Color, Urine Yellow (P-Yellow); Glucose Qualitative, Urine Neg (Neg); Ketones, Urine Neg (Neg); Leukocyte Esterase, Urine 3+ (Neg); Nitrite, Urine Neg (Neg); Protein, Urine 2+ (Neg); Urobilinogen, Urine NORM (Normal)
[2018-11-19 17:27] LABS: White Blood Cells, Urine 50-100 /hpf (0-5)
[2018-11-19 17:29] LABS: Bacteria Mod /hpf; Red Blood Cells, Urine 0-2 /hpf (0-2); Squamous Epithelial Cells Few /hpf (Few)
--- NOTE | 2018-11-19 17:56 | NUR ---
SHIFT SUMMARY PT REMAINED IN BED WITH TRANSVENOUS PACING, HR 69. GASTRIC OCCULT SAMPLE POSITIVE FOR BLOOD. PT HAS BEEN NPO ENTIRE SHIFT. AWAITING PLAN FROM GI AND HOSP. VOIDED LARGE AMOUNT THIS AFTERNOON IN BEDPAN, SPECIMEN SENT TO LAB. PT RECIVED LINEN CHANGE AND BEDBATH. FAMILY BEDSIDE THROUGHOUT SHIFT. NGT CLAMPED AT 0900 THIS AM; PILLS ADMINISTERED THROUGH NGT. SPOKE WITH PTS DAUGHTER IN LAW, WHOM SHE LIVES WITH AND SHE STATES THAT PT NEEDS MORE HELP AT HOME WITH ADLS THAN CURRENTLY RECIEVING. STATES THAT PT CANNOT BATHE HERSELF, IS NOT COMPLIANT WITH TAKING HER PILLS PRESCRIBED, AND IS INCONTINENT AND THEN REFUSES CARE AT TIMES FROM HER CAREGIVERS. NEURO UROLOGIST CONSULT ORDERED FOR ASSESSMENT OF FURTHER CARE AND RESOURCES. CALL LIGHT WITHIN REACH. BP STABLE ENTIRE SHIFT AND PT AFEBRILE. WILL GIVE BEDSIDE, HANDOFF REPORT TO NOC RN.
--- NOTE | 2018-11-19 19:00 | NUR ---
ASSUME CARE REPOERT RECIEVED FROM OFF GOING ISATU BECK. MONITOR INTACT SHOWING 100% PACED RHYTHM. HEART RATE 69.TRANSVENOUS PACER SITE TO R GROIN INTACT . ARMBOARD IN PLACE TO R WRIST TR BAND SITE. OPSITE DRESSING INTACT CO TENDERNESS TO SITE WITH SOME BRUISING NOTED. LUNG SOUNDS CLEAR UPPER LOBES WITH DIMINISHED SOUNDS IN THE BASES RESPIRATIONS REGULAR AND EASY AT REST. WIT O2 IN PLACE AT 3L/MIN. SPO2 93-95a% WITH O2 IN PLACE DESATURATES TO 80'S WHEN O2 OFF. REMINDED TO LEAVE ON. UNDERSTANDING VERBALIZED. NG CLAMPED, ABDOMEN SOFT WITH BOWEL SOUNDS FOUR QUADS. ATTENDS IN PLACE SECONDARY TO INCONTINENCE. DRESSINGS INTACT TO WOUNDS ON COCCYX, HEELS .ART HOSE TO LOWER EXTREMITIES. FOAM HEEL PROTECTORS IN PLACE. NPO STATUS EXPLAINED FOR AFTER MIDNIGHT FOR PROCEDURE TOMMOROW. CONTINUE TO MONITOR AND REPORT CHANGE IN PATIENT CONDITION.
[2018-11-19 19:11] LABS: BASOPHILS ABSOLUTE AUTO 0.07 K/mm3 (0.00-0.23); BASOPHILS PERCENT AUTO 0 % (0-2); EOSINOPHILS ABSOLUTE AUTO 0.03 K/mm3 (0.00-0.68); EOSINOPHILS PERCENT AUTO 0 % (0-6); Hematocrit 33.8 % (33.0-51.0); Hemoglobin 10.6 g/dL (11.5-16.0); IMMATURE GRAN ABSOLUTE AUTO 0.07 K/mm3 (0.00-0.10); IMMATURE GRAN PERCENT AUTO 0 % (0-1); LYMPHOCYTES ABSOLUTE AUTO 1.32 K/mm3 (0.84-5.20); LYMPHOCYTES PERCENT AUTO 8 % (21-46); MONOCYTES ABSOLUTE AUTO 1.22 K/mm3 (0.16-1.47); MONOCYTES PERCENT AUTO 8 % (4-13); Mean Corpuscular HGB 27.2 pg (26.0-34.0); Mean Corpuscular HGB Conc 31.4 g/dL (31.5-36.5); Mean Corpuscular Volume 87 fL (80-100); Mean Platelet Volume 10.2 fL (9.1-12.4); NEUTROPHILS PERCENT AUTO 83 % (41-73); Platelet Count 303 K/mm3 (150-400); RDW Coefficient Variation 14.2 % (11.7-14.2); RDW Standard Deviation 44.8 fL (35.1-46.3); White Blood Cell Count 15.71 K/mm3 (4.00-11.30)
[2018-11-20 04:00] LABS: BASOPHILS ABSOLUTE AUTO 0.05 K/mm3 (0.00-0.23); BASOPHILS PERCENT AUTO 0 % (0-2); EOSINOPHILS ABSOLUTE AUTO 0.06 K/mm3 (0.00-0.68); EOSINOPHILS PERCENT AUTO 0 % (0-6); Hematocrit 35.1 % (33.0-51.0); Hemoglobin 11.1 g/dL (11.5-16.0); IMMATURE GRAN ABSOLUTE AUTO 0.08 K/mm3 (0.00-0.10); IMMATURE GRAN PERCENT AUTO 1 % (0-1); LYMPHOCYTES ABSOLUTE AUTO 1.78 K/mm3 (0.84-5.20); LYMPHOCYTES PERCENT AUTO 13 % (21-46); MONOCYTES ABSOLUTE AUTO 1.37 K/mm3 (0.16-1.47); MONOCYTES PERCENT AUTO 10 % (4-13); Mean Corpuscular HGB 27.3 pg (26.0-34.0); Mean Corpuscular HGB Conc 31.6 g/dL (31.5-36.5); Mean Corpuscular Volume 87 fL (80-100); NEUTROPHILS ABSOLUTE AUTO 10.23 K/mm3 (1.96-9.15); NEUTROPHILS PERCENT AUTO 75 % (41-73); RDW Coefficient Variation 14.2 % (11.7-14.2); RDW Standard Deviation 44.4 fL (35.1-46.3); Red Blood Cell Count 4.06 M/mm3 (3.80-5.20); White Blood Cell Count 13.57 K/mm3 (4.00-11.30)
[2018-11-20 04:04] LABS: Mean Platelet Volume 10.9 fL (9.1-12.4); Platelet Count 98 K/mm3 (150-400)
[2018-11-20 04:18] LABS: Bun/Creatinine Ratio 36.3 (12.0-20.0); Calcium, Blood 8.6 mg/dL (8.5-10.1); Creatinine, Blood 0.99 mg/dL (0.40-1.00); Potassium, Blood 4.8 mmol/L (3.5-5.5)
--- NOTE | 2018-11-20 05:55 | NUR ---
SHIFT SUMMARY: RESTS QUIETLY WHEN UNDISTURBED. MONITOR INTACT SHOWING 100% PACED TRANVENOUS PACER INTACT SITE CLEAR RATE 69. DENIES DISCOMFORT EXCEPT FOR "LITTLE HEADACHE" DENIES NAUSEA ASKS IF SHE WILL GET BREAKFAST THIS AM EXPLAINED NPO STATUS STATES "OH THAT'S RIGHT".LUNG SOUNDS DIMINISHED IN BASES CLEAR IN UPPER LOBES. O2 IN PLACE AT 3L/MIN PER NASAL CANNULA. SPO2 94-97% ABDOMEN SOFT WITH BOWEL SOUNDS FOUR QUADS. ATTENDS IN PLACE VOIDS PER BEDPAN ANCELMO URINE.TR BAND SITE BRUISED HOWEVER IS CLEAR. ARMBOARD IN PLACE. PAS TO LOWER EXTREMITIES. CONTINUE TO MONITOR AND REPORT CHANGE IN PATIENT CONDITION
--- NOTE | 2018-11-20 07:05 | NUR ---
ASSUMED CARE: RECEIVED REPORT FROM NOC RN. PT IS NOTED TO BE SLEEPING UPON ENTERING ROOM WAKES EASILY AT VERBAL STEMULI. HR IS NOTED TO BE AT 69, PACED 100%. PACER SETTINGS ARE VVI, RATE OF 70, MV 3, V 3. WIRES ARE NOTED TO BE JUST A LITTLE LESS THAN 80CM APPROX. SYRENGE IS NOTED TO BE EMPTY OF AIR AND STOP-COCK IS NOTED TO BE CLOSED. NO SWELLING OR TENDERNESS NOTED. ARM BOARD ON R WRIST, RADIAL SITE APPEARS TO HAVE NO BLEEDING NOTED, PT STATES SOME TENDERNESS WITH PALPATION, SOME BRUSING NOTED AROUND SIDE. NO SWELLING OR REDNESS NOTED. WILL CONTINUE TO MONITOR AND ASSESS FURTHER.
--- NOTE | 2018-11-20 10:56 | NUR ---
CALL TO DR LAIRD: NOTIFIED DR LAIRD OF LOW GLUCOSE LEVELS AND NEW ORDERS WERE RECEIVED FOR D5 1/2 NS /C 20MEQ OF KCL. WILL CONTINUE TO MONITOR.
--- NOTE | 2018-11-20 12:33 | NUR ---
NG TUBE REMOVED: NG TUBE REMOVED AT THIS TIME, NO COMPLICATIONS NOTED WITH REMOVAL. PT TOLLERATED WELL.
--- NOTE | 2018-11-20 17:54 | NUR ---
SHIFT SUMMARY: NO ACUTE CHANGES NOTED T/O THE SHIFT. NO CHANGE TO GROIN OR RADIAL SITES, NO BLEEDING, OR SWELLING NOTED. NO CHANGE TO TRANSVENOUS PACER, SETTINGS REMAIN THE SAME NOTED AT THE BEGINNING OF THE SHIFT, BATTERY REMAINS IN GOOD CHARGE NOTED BY THE LOW BATTERY LIGHT NOT ON. PT HAS EATEN LUNCH AND DINNER SITTING AT APPROX 25 DEGREE ANGLE AND ELIVATED IN TRENDELENBERG. NG TUBE WAS REMOVED THIS SHIFT PER ORDERS NO BLEEDING NOTED AND NO NAUSEA OR VOMITING NOTED T/O THE SHIFT. VSS T/O THE SHIFT. CONTINUE TO MONITOR AND GIVE REPORT TO ON COMING RN. CALL LIGHT IN REACH.
--- NOTE | 2018-11-20 20:00 | NUR ---
ASSUMED CARE OF PT AT 1915. REPORT RECEIVED. PT PRESENTS IN BED. ALERT AND ORIENTED. PLEASANT AND COOPERATIVE WITH CARE AND ASSESSMENT. PT CONTINUES WITH TRANSVENOUS PACER. 95-100 PERCENT PACING NOTED. PT TEACHING ON HEART BLOCK, AND PACER. PT VOICES A BETTER UNDERSTANDING OF HEART BLOCK AND RATIONALE FOR PACER. WILL REVIEW CHART AND PLAN OF CARE FOR THIS PT.
--- NOTE | 2018-11-20 22:30 | NUR ---
DID SPEAK WITH DR LAIRD EARLIER IN EVENING. PT PLACED ON ROCEPHIN FOR UTI. PT TOLERATES THIS WELL WITHOUT S/S ADVERSE REACTIONS. PT TOLERATING TURNS IN BED WELL. CONTINUES NEARLY FULLY V PACED WITH TRANSVENOUS PACING. WILL CONTINUE TO MONITOR.
--- NOTE | 2018-11-21 02:00 | NUR ---
NEW MEPILEX DRESSING APPLIED TO GLUTEAL/SACRUM AREA. PT WAS GOOD ABOUT CALLING FOR BEDPAN. DENIES CHEST PAIN OR PRESSURE. CONTINUES TO BE WELL PACED WITH TRANSVENOUS PACER.
[2018-11-21 04:01] LABS: Hematocrit 32.1 % (33.0-51.0); Hemoglobin 9.9 g/dL (11.5-16.0); Mean Corpuscular HGB Conc 30.8 g/dL (31.5-36.5); Mean Corpuscular Volume 88 fL (80-100); Mean Platelet Volume 9.7 fL (9.1-12.4); Platelet Count 278 K/mm3 (150-400); RDW Coefficient Variation 14.3 % (11.7-14.2); RDW Standard Deviation 45.2 fL (35.1-46.3); Red Blood Cell Count 3.66 M/mm3 (3.80-5.20); White Blood Cell Count 10.55 K/mm3 (4.00-11.30)
[2018-11-21 04:24] LABS: Anion Gap 4 mmol/L (6-16); Blood Urea Nitrogen 31 mg/dL (8-24); Bun/Creatinine Ratio 33.3 (12.0-20.0); CO2, Blood 25 mmol/L (21-32); Calcium, Blood 8.4 mg/dL (8.5-10.1); Chloride, Blood 106 mmol/L (98-108); Creatinine, Blood 0.93 mg/dL (0.40-1.00); Glomerular Filtration Rate >60 (60-); Glucose, Blood 149 mg/dL (70-99); Potassium, Blood 4.6 mmol/L (3.5-5.5); Sodium, Blood 135 mmol/L (136-145)
--- NOTE | 2018-11-21 07:12 | NUR ---
PT CONTINUES TO NOT HAVE ANY CHEST PAIN OR PRESSURE. TRANSVENOUS PACER WITHOUT PROBLEMS. NO CHANGES IN PREVIOUS SETTINGS REQUIRED. PT VOIDS QS PER BEDPAN. NPO SINCE MIDNIGHT PENDING PACER PLACEMENT. REPORT GIVEN TO ONCOMING RN.
--- NOTE | 2018-11-21 07:21 | NUR ---
ASSUMED CARE: RECEIVED REPORT FROM NOC RN. PT APPEARS TO BE SLEEPING UPON ENTERING ROOM, WAKES EASILY. R RADIAL AND R GROIN SITES ASSESSED AND APPEAR WNL, NO CHANGES NOTED FROM YESTERDAY. NO SWELLING, TENDERNESS, OR OOZING AT OR AROUND SITES. TRANSVENOUS PACER APPEARS TO HAVE NO CHANGES SETTINGS ARE STILL NOTED TO BE RATE OF 70 P/MIN, MV & V 3, LOW BATTERY LIGHT IS NOT ON. CAPTURE IS NOTED ON MONITOR APPROX 98-100% OF THE TIME. PT REMAINS ON 4L O2 VIA NC, SATTING AT 96% THIS MORNING. WILL ASSESS FURTHER AND CONTINUE TO MONITOR. CALL LIGHT IN REACH. PT AND STAFF MADE AWARE PT IS TO BE NPO THIS MORNING FOR POSSIBLE PACER. CHART AND ORDERS REVIEWED.
--- NOTE | 2018-11-21 12:09 | NUR ---
DR LADD: DR IN TO SEE THE PT AND DISCUSS PLAN. DR VISUALIZED PRESSURE ULCER ON THE BOTTOM L FOOT. DR EDUCATED PT ON RISK OF INFECTION AT PACER SITE D/T INFECTION ALREADY NOTED IN PRESSURE ULCERS AND BLADDER. AWAITING PT TO BE TAKEN BACK FOR PACER PLACEMENT.
--- NOTE | 2018-11-21 12:56 | NUR ---
BUTCHER OR SMALLGOODS MAKER: PT TO [facility] AT THIS TIME FOR PACER PLACEMENT. SON FOLLOWED PT OUT OF THE UNIT. CALLED DR CONROY AND RECEIVED ORDERS FOR PCU STATUS ONCE PACER IS PLACED. CHARGE NURSE NOTIFIED.
--- NOTE | 2018-11-21 21:21 | NUR ---
SHIFT SUMMARY Assumed care of pt upon arrival to unit at 1600. Telephone report received from MACHINE III COREMAKER, Jane. Bedside report received from heart center nurses. Dr Correa in to see pt shortly after arrival to unit. Pt had permanent pacemaker placed in heart center today and has a nonadherent dressing and tegaderm to left chest wall. Dressing C/D/I. Pt has a tegaderm to right groin site where pt previous had a transvenous pacemaker. Per heart center staff, manual pressure was held and hemostasis was acheived immediately prior to PCU arrival. Site free of drainage, bruising, or hematoma. Color, sensation, capillary refill and distal pulses equal BLE. Pt has right radial site due to previous angiogram. Site is bruised, but free of hematoma or drainage. Site MEAT SUPERVISOR. Pt on 4 LPM NC. States she does not wear O2 at home. Family states concern about pt's discharge plan. They state that pt lives with a family member who is disabled and does not provide hands-on care for the pt. They state that the pt has not showered in several months and has difficulty performing ADLs. Family states pt "can't pull up her pants", "doesn't take her meds", and "uses a chair lift". They verbalize concern that pt will continue med noncompliance upon discharge and will not remain compliant with activity restrictions related to pacemaker placement. They also verbalize concern about progression of wounds and state that they have gotten much worse. Family states concern that patient will end up in hospital again if she returns to her previous living situation. This RN spoke to Rena LUNSFORD from care management. She states intent to visit with pt and family tomorrow morning. Update given to family. Family verbalizes understanding and then departs from unit. This RN spoke to Dr Fall regarding family's concerns. Verbal order given for PT/OT eval. Pt assisted to sit on edge of bed to eat dinner. Pt tolerated activity well. Pt tolerated dinner well. Bedside report given to Aliyah LUNSFORD.
--- NOTE | 2018-11-22 07:26 | NUR ---
SHIFT SUMMARY: PATIENT HAD PAIN MEDICATION X1 THIS SHIFT, MAX ASSIST TO BSC, VSS, CALL LIGHT WITHIN REACH, BED LOW AND LOCKED.
--- NOTE | 2018-11-22 09:57 | NUR ---
BEGINING OF SHIFT: ASSUMED CARE OF PT AT 0700, RECIVED REPORT FROM NATIVIDAD LUNSFORD. PT IS ALERT AND ORIENTED AND IS ABLE TO FOLLOW DIRECTIONS. UPON ENTERING ROOM PT WAS ON RA AND 02 STATURATION WAS AT 87-88 %. PT WAS THEN PLACED ON 2 L OF 02 VIA NC, WITH 02 STATURATION BETWEEN 92-94%. PT DENIES ANY DYSPENA, OR CHEST PAIN AT THIS TIME. PT IS CURRENTLY RUNNING AT 60 BMP ON THE GCT SemiconductorACKER PER ENVIRONMENTAL HEALTH AIDE. PT WAS ABLE TO AMBULATE WITH 2 PERSON MAX ASSIST TO THE BSC. PT HAS BEEN PLACED ON MEDICAL FLOOR STATUS, AWAITING ROOM ASSINGMENT. WILL CONTINUE TO MONITOR STATUS.
--- NOTE | 2018-11-22 17:44 | NUR ---
END OF SHIFT REPORT: PT'S WOUND DRESSINGS WERE CHANGED DURING THIS SHIFT AND PT WAS ABLE TO TOLERATE IT WILL. WOUNDS WERE CLEANSED WITH SKIN INTEGRITY WOUND CLEANSER AND COVERED WITH MEPILEX FOAM DRESSINGS. AFTER SPEAKING TO PT ABOUT HER WOUNDS, PT STATED THAT SHE GETS TREATED BY THE WOUND CLINIC AND THAT SHE USES PURACOL TO COVER HER WOUND, WILL ATTEMPTED TO LOCATE MATERIAL BEFORE END OF SHIFT. PT IS CURRENTLY ON 1.5 L OF O2 VIA NC, AND OXYGEN SATURATION IS REMAINING ABOVE 90% PT DENIES DYSPNEA, DIZZINESS OR PAIN AT THIS TIME. PT HAS BEEN ENCOURAGED TO PERFORM FOOT PUMPS T/O SHIFT. WILL CONTINUIE TO MONITOR FOR CHANGES UNTIL REPORT IS GIVEN TO ONCOMING SHIFT. BED AT LOWEST LEVEL AND CALL LIGHT IS WITHIN REACH.
--- NOTE | 2018-11-23 06:38 | NUR ---
SHIFT SUMMARY PATIENT REMAINED STABLE THROUGHOUT THE SHIFT. ALERT AND ORIENTED. HARD OF HEARING, REMAINED ATRIAL PACED WITH HEART RATE ON THE 60'S. CLEAR ON RIGHT UPPER LOBE AND LEFT UPPER LOBE, DEMINISHED ON LOWER LOBES. SLING ON THE LEFT ARM AND VENOUS GROIN ACCESS ON THE RIGHT LOWER ABDOMEN. BED LOCK, BED ON LOW POSITION AND CALL LIGHT WITHIN REACH.
--- NOTE | 2018-11-23 11:00 | NUR ---
PT ALERT AND ORIENTED X4. PT HAS BEEN PLEASANT ALL MORNING, PT WAS PAIN FREE TO A 1 AT THE PACER INCISION SITE ALL MORNING, FOLLOWED LEFT ARM RESTRICTION INSRTUCTIONS. PT STILL HAS LEFT ARE SLING IN PLACE. PACER BANDAGE, RIGHT RADIAL PUNCTURE, AND RIGHT GROIN VENOUS PUNCTURE CDI. PT WORKED WITH PATIENT, TRANSFERED TO COMMODE AND THEN CHAIR W/ 2 PERSON ASSIST, PT TOLERATED WELL. MEPILEX STILL ON LEFT HEEL AND LEFT ACHILLES ULCER. MEPILEX ON COCCYX. REPORT WAS GIVEN TO [place] ON MEDICAL FLOOR PRIOR TO TRANSFER VIA WHEELCHAIR, WITH BELONGINGS.
--- NOTE | 2018-11-23 11:36 | NUR ---
PT arrived to the floor alert and oriented. Pt is calm and cooperative. I have assessed the PT apon her arriving to the floor and agree with the assessment charted by student RN Richie Niño this AM.
--- NOTE | 2018-11-23 18:12 | NUR ---
END OF SHIFT SUMMARY: PT ARRIVED ON THE FLOOR AT APPROX 1130. PT IS CALM AND COOPERATIVE. PT IS A&OX3. PT HAS BEEN SITTING UP IN A CHAIR THROUGHOUT THE SHIFT. PT HAS STATED NO ADDITIONAL NEEDS WHEN ASKED. WILL CONTINUE TO MONITOR. PT HAS SLING ON LEFT ARM DUE TO PACEMAKER PLACEMENT. PT COMPLYING WITH ARM MOVEMENT RESTRICTIONS WELL. WILL CONTINUE TO MONITOR.
--- NOTE | 2018-11-23 18:28 | NUR ---
SN ASSESSMENT I WAS PRESENT AND AGREE WITH THE SN ORR CARE OF THIS PT T/O THE DAY
--- NOTE | 2018-11-23 21:36 | NUR ---
WOUNDS PT HAS PRESSURE ULCER TO BUTTOCKS AND L HEEL. CHANGED DRESSING AND CLEANED BOTH SITES WITH WOUND CLEANSER. PT TOLERATED WELL.
[2018-11-24 05:22] LABS: BASOPHILS ABSOLUTE AUTO 0.07 K/mm3 (0.00-0.23); BASOPHILS PERCENT AUTO 1 % (0-2); EOSINOPHILS ABSOLUTE AUTO 0.22 K/mm3 (0.00-0.68); EOSINOPHILS PERCENT AUTO 3 % (0-6); Hematocrit 31.1 % (33.0-51.0); Hemoglobin 9.8 g/dL (11.5-16.0); IMMATURE GRAN ABSOLUTE AUTO 0.08 K/mm3 (0.00-0.10); IMMATURE GRAN PERCENT AUTO 1 % (0-1); LYMPHOCYTES ABSOLUTE AUTO 1.28 K/mm3 (0.84-5.20); LYMPHOCYTES PERCENT AUTO 17 % (21-46); MONOCYTES ABSOLUTE AUTO 0.89 K/mm3 (0.16-1.47); MONOCYTES PERCENT AUTO 12 % (4-13); Mean Corpuscular HGB 26.6 pg (26.0-34.0); Mean Corpuscular HGB Conc 31.5 g/dL (31.5-36.5); Mean Platelet Volume 9.6 fL (9.1-12.4); NEUTROPHILS ABSOLUTE AUTO 4.81 K/mm3 (1.96-9.15); NEUTROPHILS PERCENT AUTO 65 % (41-73); Platelet Count 282 K/mm3 (150-400); RDW Standard Deviation 42.7 fL (35.1-46.3); Red Blood Cell Count 3.69 M/mm3 (3.80-5.20); White Blood Cell Count 7.35 K/mm3 (4.00-11.30)
[2018-11-24 05:29] LABS: Mean Corpuscular Volume 84 fL (80-100)
[2018-11-24 05:52] LABS: Anion Gap 6 mmol/L (6-16); Blood Urea Nitrogen 22 mg/dL (8-24); Bun/Creatinine Ratio 23.9 (12.0-20.0); CO2, Blood 27 mmol/L (21-32); Calcium, Blood 8.7 mg/dL (8.5-10.1); Chloride, Blood 107 mmol/L (98-108); Creatinine, Blood 0.92 mg/dL (0.40-1.00); Glomerular Filtration Rate >60 (60-); Glucose, Blood 118 mg/dL (70-99); Potassium, Blood 4.5 mmol/L (3.5-5.5); Sodium, Blood 140 mmol/L (136-145)
--- NOTE | 2018-11-24 06:49 | NUR ---
SHIFT SUMMARY: PT DOES NOT HAVE ANY ACUTE CHANGES TONIGHT. DRESSING CHANGES TO L HEEL/ANKLE AND BUTTOCKS CHANGED AND CLEANED c WOUND CLEANSER. PT IS TWO PERSON MAX ASSIST TO BSC. CONTINENT/INCONTINENT. RED RASH TO PANNUS, CLEANED SITE WELL AND DRIED IT WILL BEFORE APPLYING POWDER TO AREA. NO OTHER CHANGES TO REPORT. WILL CONT TO MONITOR AND PROVIDE CARE UNTIL PRESUMED BY ONCOMING RN.
--- NOTE | 2018-11-24 18:17 | NUR ---
End of shift summary: Pt has been awake for most of this shift with a nap near noon. Pt is mostly oriented, with occasional forgetfullness. Bandages on Pts left heel were changed this afternoon after Pt stated concern over the condition of her legs. Lotion was applied to dry skin on the lower legs. Pt has transfered a chair twice today for meals. Pt states no further needs at this time. Will continue to monitor.
--- NOTE | 2018-11-24 18:40 | NUR ---
ASSESSMENT I AGREE WITH AND WAS PRESENT AT THE PT AM ASSESSMENT PERFORMED BY SOO AYALA
--- NOTE | 2018-11-25 07:56 | NUR ---
SHIFT SUMMARY: PT IS A&O, FORGETFUL, NEWTOK. PRESSURE ULCER DRESSING CHANGES TO L HEEL AND ANKLE CHANGED, WELL TO COCCYX BUTTOCK AREA. PT TOLRATES WELL. VSS. 2 PER MAX ASSIST TO BSC, SIT TO STAND USED THIS SHIFT. L ARM IN SLING TO DECREASE RISK OF DISLODGING/MOVING NEWLY PLACED DUAL-CHAMBER PACEMAKER. NO OTHER CHANGES TO REPORT. WILL CONT TO MONITOR AND PROVIDE CARE UNTIL PRESUMED BY ONCOMING RN.
[2018-11-25] MEDS ORDERED: DOXY100 PO (15:18)
[2018-11-25] MEDS ORDERED: Norco 5-325 Ta1 EACH PO (15:18)
[2018-11-25] MEDS ORDERED: HUMALOG JU100 UNIT/1 SC (15:19)
--- NOTE | 2018-11-25 15:45 | NUR ---
SON, GEOVANY, AT [phone] NOTIFIED OF PATIENT TRANSFER TO [facility]. TARIQ AT [facility] GIVEN REPORT. ANSWER ALL QUESTIONS. TO BE TRANSFERRED AT 1600.
== END 2018-11-25 16:30 | DRG 242 ==
LOC: ER 21:04 → ICUW 11-18 00:05 → PCU 11-21 14:17 → ICUW 11-21 15:35 → PCU 11-21 15:52 → MEDS 11-23 10:38
PROVIDERS: Emergency Medicine; Internal Medicine; Internal Medicine Cardiovascular Disease; ADMIT Internal Medicine
PROC: B2111ZZ Fluoroscopy of Multiple Coronary Arteries using Low Osmolar Contrast (ICD-10-PCS; 2018-11-18)
PROC: 0JH606Z Insertion of Pacemaker, Dual Chamber into Chest Subcutaneous Tissue and Fascia, Open Approach (ICD-10-PCS; principal; 2018-11-21)
PROC: 02HK3JZ Insertion of Pacemaker Lead into Right Ventricle, Percutaneous Approach (ICD-10-PCS; 2018-11-21)
PROC: 02H63JZ Insertion of Pacemaker Lead into Right Atrium, Percutaneous Approach (ICD-10-PCS; 2018-11-21)
DX: I44.2 Atrioventricular block, complete (principal); N17.0 Acute kidney failure with tubular necrosis; J18.1 Lobar pneumonia, unspecified organism; K92.0 Hematemesis; I10 Essential (primary) hypertension; Z68.38 Body mass index [BMI] 38.0-38.9, adult; Z79.4 Long term (current) use of insulin; I25.10 Atherosclerotic heart disease of native coronary artery without angina pectoris; E11.43 Type 2 diabetes mellitus with diabetic autonomic (poly)neuropathy; I95.9 Hypotension, unspecified; E66.01 Morbid (severe) obesity due to excess calories; E11.51 Type 2 diabetes mellitus with diabetic peripheral angiopathy without gangrene
CPT/HCPCS: 33208; 33210; 36415; 71045; 71046; 74018; 80048; 80053; 81001; 82271; 82947; 83036; 83735; 84145; 84484; 85025; 85027; 85610; 85730; 87040; 87081; 93005; 93010; 93306; 93458; 93571; 96365; 96366; 96375; 97110; 97163; 97166; 97530; 99152; 99153; 99285-25; A9270-GY; C1760; C1769; C1781; C1785; C1887; C1894; C1898; C9113; J0690; J0696; J1644; J1650; J1815; J2250; J2270; J2405; J2550; J3010; J7030; J7040; J7050; Q9967

== ENCOUNTER 2018-12-17 00:15 | Day surgery (SDC) | payer OTHER ==
[~2018-12-17 00:15] MED LIST changes: +BUME1 PO; +DOXY100 PO; +HUMALOG JU100 UNIT/1 SC; +Humalog100 UNIT/1 SC; +Norco 5-325 Ta1 EACH PO; +PIOG15 PO; +POTCHL10ER PO; +Triamcinolone A15 G3 TOP
== END 2018-12-17 23:00 | disposition home or self-care (01) ==
LOC: WOUND 00:15
DX: E11.621 Type 2 diabetes mellitus with foot ulcer (principal); E11.622 Type 2 diabetes mellitus with other skin ulcer; L97.522 Non-pressure chronic ulcer of other part of left foot with fat layer exposed; L97.822 Non-pressure chronic ulcer of other part of left lower leg with fat layer exposed; E11.51 Type 2 diabetes mellitus with diabetic peripheral angiopathy without gangrene; I70.25 Atherosclerosis of native arteries of other extremities with ulceration; I10 Essential (primary) hypertension
CPT/HCPCS: 87071; 87075; 87205; 88305; G0463

== ENCOUNTER 2018-12-27 08:00 | Day surgery (SDC) | payer OTHER ==
[2019-04-29] MEDS ORDERED: ARGINAID POWDE1 EACH PO (11:04)
[2019-04-29] MEDS ORDERED: PROBIOTIC PO (11:06)
[2019-04-29] MEDS ORDERED: THERA1 EACH PO (11:06)
[2019-04-29] MEDS ORDERED: Florastor250 MG PO (11:07)
[2019-04-29] MEDS ORDERED: BISA10S PR (11:08)
[2019-04-29] MEDS ORDERED: INSULANPEN SC (11:09)
[2019-04-29] MEDS ORDERED: Fleet Enema132 ML PR (11:09)
== END 2018-12-27 23:05 | disposition home or self-care (01) ==
LOC: WOUND 08:00
DX: E11.622 Type 2 diabetes mellitus with other skin ulcer (principal); L97.822 Non-pressure chronic ulcer of other part of left lower leg with fat layer exposed; E11.621 Type 2 diabetes mellitus with foot ulcer; L97.522 Non-pressure chronic ulcer of other part of left foot with fat layer exposed; L89.894 Pressure ulcer of other site, stage 4; I87.2 Venous insufficiency (chronic) (peripheral); E11.51 Type 2 diabetes mellitus with diabetic peripheral angiopathy without gangrene; I70.25 Atherosclerosis of native arteries of other extremities with ulceration
CPT/HCPCS: G0463

== ENCOUNTER 2019-01-06 14:45 | Day surgery (SDC) | payer OTHER ==
[2019-04-29] MEDS ORDERED: ARGINAID POWDE1 EACH PO (11:04)
[2019-04-29] MEDS ORDERED: THERA1 EACH PO (11:06)
[2019-04-29] MEDS ORDERED: PROBIOTIC PO (11:06)
[2019-04-29] MEDS ORDERED: Florastor250 MG PO (11:07)
[2019-04-29] MEDS ORDERED: BISA10S PR (11:08)
[2019-04-29] MEDS ORDERED: INSULANPEN SC (11:09)
[2019-04-29] MEDS ORDERED: Fleet Enema132 ML PR (11:09)
== END 2019-01-06 22:40 | disposition home or self-care (01) ==
LOC: WOUND 14:45
DX: E11.622 Type 2 diabetes mellitus with other skin ulcer (principal); L97.222 Non-pressure chronic ulcer of left calf with fat layer exposed; I10 Essential (primary) hypertension; I87.2 Venous insufficiency (chronic) (peripheral); I70.25 Atherosclerosis of native arteries of other extremities with ulceration; M19.90 Unspecified osteoarthritis, unspecified site

== ENCOUNTER 2019-01-09 09:29 | Observation (INO) | payer OTHER ==
[~2019-01-09] VITALS: Ht 170.2 cm; Wt 93.5 kg
[2019-01-09] MEDS ORDERED: Papaya1 EACH PO (10:19)
[2019-01-09] MEDS ORDERED: ALBU3IS (10:20)
[2019-01-09] MEDS ORDERED: ASCO500 PO (10:20)
[2019-01-09] MEDS ORDERED: BONE ESSENT166.75 MG PO (10:21)
[2019-01-09 11:17] LABS: BASOPHILS ABSOLUTE AUTO 0.07 K/mm3 (0.00-0.23); BASOPHILS PERCENT AUTO 1 % (0-2); EOSINOPHILS ABSOLUTE AUTO 0.12 K/mm3 (0.00-0.68); EOSINOPHILS PERCENT AUTO 1 % (0-6); Hematocrit 35.8 % (33.0-51.0); IMMATURE GRAN ABSOLUTE AUTO 0.04 K/mm3 (0.00-0.10); IMMATURE GRAN PERCENT AUTO 0 % (0-1); LYMPHOCYTES PERCENT AUTO 20 % (21-46); MONOCYTES ABSOLUTE AUTO 0.73 K/mm3 (0.16-1.47); MONOCYTES PERCENT AUTO 8 % (4-13); Mean Corpuscular HGB 24.8 pg (26.0-34.0); Mean Corpuscular HGB Conc 30.7 g/dL (31.5-36.5); Mean Corpuscular Volume 81 fL (80-100); Mean Platelet Volume 9.3 fL (9.1-12.4); NEUTROPHILS ABSOLUTE AUTO 6.32 K/mm3 (1.96-9.15); NEUTROPHILS PERCENT AUTO 70 % (41-73); Platelet Count 374 K/mm3 (150-400); RDW Coefficient Variation 14.8 % (11.7-14.2); RDW Standard Deviation 43.6 fL (35.1-46.3); Red Blood Cell Count 4.44 M/mm3 (3.80-5.20); White Blood Cell Count 9.08 K/mm3 (4.00-11.30)
[2019-01-09 11:34] LABS: Alanine Aminotransfer (ALT/SGP 16 U/L (12-78); Albumin/Globulin Ratio 0.7 (0.8-1.8); Alk Phos 118 U/L (50-136); Anion Gap 7 mmol/L (6-16); Aspartate Aminotrans (AST/SGOT 16 U/L (12-37); Bilirubin, Total 0.4 mg/dL (0.1-1.0); Blood Urea Nitrogen 15 mg/dL (8-24); Bun/Creatinine Ratio 23.5 (12.0-20.0); CO2, Blood 26 mmol/L (21-32); Calcium, Blood 9.3 mg/dL (8.5-10.1); Chloride, Blood 106 mmol/L (98-108); Creatinine, Blood 0.64 mg/dL (0.40-1.00); Globulin, Blood 4.2 g/dL (2.2-4.0); Glomerular Filtration Rate >60 (60-); Glucose, Blood 131 mg/dL (70-99); Potassium, Blood 4.5 mmol/L (3.5-5.5); Sodium, Blood 139 mmol/L (136-145); Total Protein, Blood 7.2 g/dL (6.4-8.2)
[2019-01-09] MEDS ORDERED: MELA3 PO (12:02)
--- NOTE | 2019-01-09 18:34 | NUR ---
SHIFT SUMMARY PT A NEW ADMISSION THIS AFTERNOON FROM ED. PT ALERT AND ORIENTED X4. NO COMPLAINTS OF PAIN AT THIS TIME. PT HAS WOUNDS TO BILATERAL HEELS, LEFT SECOND TOE, LEFT CALF, AND NONBLANCING SKIN TO BUTTOCKS. DR. VERGARA HAS BEEN CONSULTED BY ED PHYSICIAN FOR TOE. IVF INFUSING WITHOUT DIFFICULTY. NO DISTRESS AT THIS TIME. CALL LIGHT IN REACH. WILL CONTINUE TO MONITOR AND REPORT TO ONCOMING RN.
[2019-01-10 05:11] LABS: BASOPHILS ABSOLUTE AUTO 0.07 K/mm3 (0.00-0.23); BASOPHILS PERCENT AUTO 1 % (0-2); EOSINOPHILS ABSOLUTE AUTO 0.18 K/mm3 (0.00-0.68); EOSINOPHILS PERCENT AUTO 2 % (0-6); Hematocrit 31.4 % (33.0-51.0); Hemoglobin 9.8 g/dL (11.5-16.0); IMMATURE GRAN ABSOLUTE AUTO 0.05 K/mm3 (0.00-0.10); IMMATURE GRAN PERCENT AUTO 1 % (0-1); LYMPHOCYTES ABSOLUTE AUTO 1.91 K/mm3 (0.84-5.20); LYMPHOCYTES PERCENT AUTO 25 % (21-46); MONOCYTES ABSOLUTE AUTO 0.85 K/mm3 (0.16-1.47); MONOCYTES PERCENT AUTO 11 % (4-13); Mean Corpuscular HGB 25.1 pg (26.0-34.0); Mean Corpuscular HGB Conc 31.2 g/dL (31.5-36.5); Mean Corpuscular Volume 81 fL (80-100); Mean Platelet Volume 9.7 fL (9.1-12.4); NEUTROPHILS ABSOLUTE AUTO 4.53 K/mm3 (1.96-9.15); NEUTROPHILS PERCENT AUTO 60 % (41-73); Platelet Count 330 K/mm3 (150-400); RDW Coefficient Variation 14.8 % (11.7-14.2); White Blood Cell Count 7.59 K/mm3 (4.00-11.30)
[2019-01-10 05:59] LABS: Anion Gap 5 mmol/L (6-16); Blood Urea Nitrogen 16 mg/dL (8-24); Bun/Creatinine Ratio 22.7 (12.0-20.0); CO2, Blood 28 mmol/L (21-32); Chloride, Blood 105 mmol/L (98-108); Creatinine, Blood 0.71 mg/dL (0.40-1.00); Glomerular Filtration Rate >60 (60-); Glucose, Blood 133 mg/dL (70-99); Potassium, Blood 4.4 mmol/L (3.5-5.5); Sodium, Blood 138 mmol/L (136-145)
--- NOTE | 2019-01-10 06:29 | NUR ---
SHIFT SUMMARY PT IS A 89 Y/O FEMALE, ADMITTED FOR L TOE GANGRENE. SHE REPORTED PAIN IN HER FEET, AND WAS MEDICATED ONCE WITH PRN NORCO. NO COMPLAINTS OF NAUSEA OR SOB. PT ALSO HAS WOUNDS ON HER BILATERAL HEELS AND L CALF. THE WOUNDS WERE REDRESSED WITH CALCIUM ALGINATE AND A FOAM DRESSING PER DR. JASMINE. PT HAS BEEN NPO SINCE 0600 IN PREP FOR A TOE AMPUTATION SURGERY TODAY. VITALS REMAINED STABLE. NO ACUTE CHANGES IN PT CONDITION NOTED. WILL CONTINUE TO MONITOR AND TREAT PER EMAR UNTIL HAND OFF TO DAY SHIFT.
--- NOTE | 2019-01-10 15:28 | NUR ---
History, Chart, Medications and Allergies reviewed before start of procedure. Lungs clear T/O to Auscultation. Patient confirms NPO status and agrees with scheduled surgery. Pre-Op teaching done. Pt verbalizes understanding.
--- NOTE | 2019-01-10 18:20 | NUR ---
SHIFT SUMMARY ALBERTO WENT TO SURGERY THIS AFTERNOON FOR THE AMPUTATION OF HER L 2ND TOE, ARRIVED BACK AND VSS. CBGS STABLE THIS SHIFT. WOUNDS TO HEELS AND L CALF HAVE DRESSINGS C/D/I. PT DECLINES TO TURN Q2 HOURS, BUT STATES SHE DOES IT HERSELF IN BED. UP TO W/C FOR MOST OF AFTERNOON. CALL LIGHT IN REACH, [facility]
--- NOTE | 2019-01-11 07:04 | NUR ---
a+o, [place], saline locked, call light in reach, bsr given to day staff, dressing cdi
--- NOTE | 2019-01-11 11:12 | NUR ---
DR HERNANDEZ AT BEDSIDE TO SEE PT. NO SURGERY AT THIS TIME, PER DR PINA PT MAY ADVANCE TO CLEAR LIQUID DIET TODAY, ADVANCE TOMORROW AND POSSIBLE DISCHARGE TOMORROW IF TOLERATING DIET.
--- NOTE | 2019-01-11 14:42 | NUR ---
DISCHARGE PT BEING DISCHARGED BACK TO [facility]. REPORT CALLED TO SANDIE LUNSFORD, QUESTIONS/CONCERNS ANSWERED. PT BEING TRANSPORTED VIA W/C. THIS RN WILL BE AVAILABLE FOR ANY ADDITIONAL QUESTIONS UNTIL 7PM TONIGHT. DISCHARGE PHOTOS TAKEN OF WOUNDS, EXCLUDING SURGICAL INCISION, AND FRESH DRESSINGS APPLIED. PT DISCHARGING WITH [facility] AT THIS TIME.
[2019-04-29] MEDS ORDERED: ARGINAID POWDE1 EACH PO (11:04)
[2019-04-29] MEDS ORDERED: PROBIOTIC PO (11:06)
[2019-04-29] MEDS ORDERED: THERA1 EACH PO (11:06)
[2019-04-29] MEDS ORDERED: Florastor250 MG PO (11:07)
[2019-04-29] MEDS ORDERED: BISA10S PR (11:08)
[2019-04-29] MEDS ORDERED: INSULANPEN SC (11:09)
[2019-04-29] MEDS ORDERED: Fleet Enema132 ML PR (11:09)
== END 2019-01-11 14:44 ==
LOC: ER 09:29 → MEDS 09:30 → ENPENDDIS 01-11 11:10 → MEDS 01-11 14:44
PROVIDERS: Emergency Medicine; Podiatrist; ADMIT Internal Medicine
PROC: 0Y6S0Z3 Detachment at Left 2nd Toe, Low, Open Approach (ICD-10-PCS; principal; 2019-01-10 15:45)
DX: E11.69 Type 2 diabetes mellitus with other specified complication (principal); M86.172 Other acute osteomyelitis, left ankle and foot; E11.52 Type 2 diabetes mellitus with diabetic peripheral angiopathy with gangrene; L97.524 Non-pressure chronic ulcer of other part of left foot with necrosis of bone; L97.514 Non-pressure chronic ulcer of other part of right foot with necrosis of bone; L97.529 Non-pressure chronic ulcer of other part of left foot with unspecified severity; L97.429 Non-pressure chronic ulcer of left heel and midfoot with unspecified severity; L97.419 Non-pressure chronic ulcer of right heel and midfoot with unspecified severity; E11.621 Type 2 diabetes mellitus with foot ulcer; I73.9 Peripheral vascular disease, unspecified; E11.42 Type 2 diabetes mellitus with diabetic polyneuropathy; I10 Essential (primary) hypertension; D64.9 Anemia, unspecified; Z95.0 Presence of cardiac pacemaker; Z88.8 Allergy status to other drugs, medicaments and biological substances; Z88.2 Allergy status to sulfonamides; Z79.899 Other long term (current) drug therapy; Z79.4 Long term (current) use of insulin
CPT/HCPCS: 36415; 73620; 80048; 80053; 82947; 85025; 87071; 87077; 87186; 87205; 88305; 88311; 96360; 96361; 99284-25; A9270-GY; G0378; J0690; J2250; J2704; J3010; J7120

== ENCOUNTER 2019-01-24 14:29 | Day surgery (SDC) | payer MEDICARE, OTHER ==
[~2019-01-24 14:29] MED LIST changes: +ALBU3IS; +BONE ESSENT166.75 MG PO; +MELA3 PO; +Papaya1 EACH PO
[2019-01-24] MEDS ORDERED: Zyvox600 MG PO (19:47)
[2019-04-29] MEDS ORDERED: ARGINAID POWDE1 EACH PO (11:04)
[2019-04-29] MEDS ORDERED: THERA1 EACH PO (11:06)
[2019-04-29] MEDS ORDERED: PROBIOTIC PO (11:06)
[2019-04-29] MEDS ORDERED: Florastor250 MG PO (11:07)
[2019-04-29] MEDS ORDERED: BISA10S PR (11:08)
[2019-04-29] MEDS ORDERED: INSULANPEN SC (11:09)
[2019-04-29] MEDS ORDERED: Fleet Enema132 ML PR (11:09)
== END 2019-01-25 00:05 | disposition home or self-care (01) ==
LOC: WOUND 14:29
DX: E11.621 Type 2 diabetes mellitus with foot ulcer (principal); E11.622 Type 2 diabetes mellitus with other skin ulcer; L97.413 Non-pressure chronic ulcer of right heel and midfoot with necrosis of muscle; L97.423 Non-pressure chronic ulcer of left heel and midfoot with necrosis of muscle; L97.822 Non-pressure chronic ulcer of other part of left lower leg with fat layer exposed; E11.51 Type 2 diabetes mellitus with diabetic peripheral angiopathy without gangrene; I70.25 Atherosclerosis of native arteries of other extremities with ulceration; I10 Essential (primary) hypertension; Z95.0 Presence of cardiac pacemaker
CPT/HCPCS: 87071; 87075; 87076; 87077; 87147; 87185; 87186; 87205; 88305

== ENCOUNTER 2019-01-24 17:04 | Emergency (ER) | payer MEDICARE, OTHER ==
[~2019-01-24] VITALS: Ht 167.6 cm; Wt 95.2 kg
[2019-01-24 17:44] LABS: BASOPHILS ABSOLUTE AUTO 0.07 K/mm3 (0.00-0.23); BASOPHILS PERCENT AUTO 1 % (0-2); EOSINOPHILS PERCENT AUTO 1 % (0-6); Hematocrit 32.5 % (33.0-51.0); Hemoglobin 9.9 g/dL (11.5-16.0); IMMATURE GRAN ABSOLUTE AUTO 0.04 K/mm3 (0.00-0.10); IMMATURE GRAN PERCENT AUTO 0 % (0-1); LYMPHOCYTES ABSOLUTE AUTO 1.73 K/mm3 (0.84-5.20); LYMPHOCYTES PERCENT AUTO 17 % (21-46); MONOCYTES ABSOLUTE AUTO 0.97 K/mm3 (0.16-1.47); MONOCYTES PERCENT AUTO 10 % (4-13); Mean Corpuscular HGB 24.3 pg (26.0-34.0); Mean Corpuscular HGB Conc 30.5 g/dL (31.5-36.5); Mean Corpuscular Volume 80 fL (80-100); Mean Platelet Volume 9.2 fL (9.1-12.4); NEUTROPHILS ABSOLUTE AUTO 7.35 K/mm3 (1.96-9.15); NEUTROPHILS PERCENT AUTO 72 % (41-73); Platelet Count 395 K/mm3 (150-400); RDW Standard Deviation 43.7 fL (35.1-46.3); Red Blood Cell Count 4.07 M/mm3 (3.80-5.20); White Blood Cell Count 10.26 K/mm3 (4.00-11.30)
[2019-01-24 18:05] LABS: Alanine Aminotransfer (ALT/SGP 22 U/L (12-78); Albumin, Blood 3.1 g/dL (3.4-5.0); Albumin/Globulin Ratio 0.7 (0.8-1.8); Alk Phos 181 U/L (50-136); Anion Gap 8 mmol/L (6-16); Aspartate Aminotrans (AST/SGOT 21 U/L (12-37); Bilirubin, Total 0.4 mg/dL (0.1-1.0); Blood Urea Nitrogen 23 mg/dL (8-24); Bun/Creatinine Ratio 36.3 (12.0-20.0); CO2, Blood 24 mmol/L (21-32); Calcium, Blood 9.4 mg/dL (8.5-10.1); Chloride, Blood 97 mmol/L (98-108); Creatinine, Blood 0.63 mg/dL (0.40-1.00); Globulin, Blood 4.7 g/dL (2.2-4.0); Glomerular Filtration Rate >60 (60-); Glucose, Blood 141 mg/dL (70-99); Sodium, Blood 129 mmol/L (136-145); Total Protein, Blood 7.8 g/dL (6.4-8.2)
[2019-01-24] MEDS ORDERED: Zyvox600 MG PO (19:47)
[2019-04-29] MEDS ORDERED: ARGINAID POWDE1 EACH PO (11:04)
[2019-04-29] MEDS ORDERED: PROBIOTIC PO (11:06)
[2019-04-29] MEDS ORDERED: THERA1 EACH PO (11:06)
[2019-04-29] MEDS ORDERED: Florastor250 MG PO (11:07)
[2019-04-29] MEDS ORDERED: BISA10S PR (11:08)
[2019-04-29] MEDS ORDERED: INSULANPEN SC (11:09)
[2019-04-29] MEDS ORDERED: Fleet Enema132 ML PR (11:09)
== END 2019-01-24 23:40 | disposition home or self-care (01) ==
LOC: ER 17:04
PROVIDERS: Emergency Medicine
DX: E11.621 Type 2 diabetes mellitus with foot ulcer (principal); L97.529 Non-pressure chronic ulcer of other part of left foot with unspecified severity; L03.116 Cellulitis of left lower limb; I73.9 Peripheral vascular disease, unspecified; E66.9 Obesity, unspecified; M19.90 Unspecified osteoarthritis, unspecified site; I10 Essential (primary) hypertension; Z88.2 Allergy status to sulfonamides; Z88.8 Allergy status to other drugs, medicaments and biological substances; Z79.4 Long term (current) use of insulin; Z79.899 Other long term (current) drug therapy
CPT/HCPCS: 36415; 73630; 80053; 85025; 99283-25

== ENCOUNTER 2019-01-29 00:34 | Day surgery (SDC) | payer MEDICARE, OTHER ==
[~2019-01-29 00:34] MED LIST changes: +Zyvox600 MG PO
[2019-04-29] MEDS ORDERED: ARGINAID POWDE1 EACH PO (11:04)
[2019-04-29] MEDS ORDERED: THERA1 EACH PO (11:06)
[2019-04-29] MEDS ORDERED: PROBIOTIC PO (11:06)
[2019-04-29] MEDS ORDERED: Florastor250 MG PO (11:07)
[2019-04-29] MEDS ORDERED: BISA10S PR (11:08)
[2019-04-29] MEDS ORDERED: INSULANPEN SC (11:09)
[2019-04-29] MEDS ORDERED: Fleet Enema132 ML PR (11:09)
== END 2019-01-29 22:48 | disposition home or self-care (01) ==
LOC: WOUND 00:34
DX: E11.621 Type 2 diabetes mellitus with foot ulcer (principal); E11.622 Type 2 diabetes mellitus with other skin ulcer; L97.426 Non-pressure chronic ulcer of left heel and midfoot with bone involvement without evidence of necrosis; L97.416 Non-pressure chronic ulcer of right heel and midfoot with bone involvement without evidence of necrosis; L97.822 Non-pressure chronic ulcer of other part of left lower leg with fat layer exposed; E11.51 Type 2 diabetes mellitus with diabetic peripheral angiopathy without gangrene; I70.25 Atherosclerosis of native arteries of other extremities with ulceration; I87.2 Venous insufficiency (chronic) (peripheral); I10 Essential (primary) hypertension

== ENCOUNTER 2019-01-31 14:16 | Day surgery (SDC) | payer MEDICARE, OTHER ==
--- NOTE | 2019-01-31 16:31 | NUR ---
DISCHARGED AT 1625.
[2019-04-29] MEDS ORDERED: ARGINAID POWDE1 EACH PO (11:04)
[2019-04-29] MEDS ORDERED: PROBIOTIC PO (11:06)
[2019-04-29] MEDS ORDERED: THERA1 EACH PO (11:06)
[2019-04-29] MEDS ORDERED: Florastor250 MG PO (11:07)
[2019-04-29] MEDS ORDERED: BISA10S PR (11:08)
[2019-04-29] MEDS ORDERED: INSULANPEN SC (11:09)
[2019-04-29] MEDS ORDERED: Fleet Enema132 ML PR (11:09)
== END 2019-01-31 23:44 | disposition home or self-care (01) ==
LOC: ATC 14:16
PROC: 05HY33Z Insertion of Infusion Device into Upper Vein, Percutaneous Approach (ICD-10-PCS; principal; 2019-01-31)
DX: E11.52 Type 2 diabetes mellitus with diabetic peripheral angiopathy with gangrene (principal); I96 Gangrene, not elsewhere classified; L89.624 Pressure ulcer of left heel, stage 4; L89.613 Pressure ulcer of right heel, stage 3; L89.894 Pressure ulcer of other site, stage 4; I44.2 Atrioventricular block, complete; I10 Essential (primary) hypertension; E11.51 Type 2 diabetes mellitus with diabetic peripheral angiopathy without gangrene; E11.42 Type 2 diabetes mellitus with diabetic polyneuropathy; Z79.899 Other long term (current) drug therapy; Z79.4 Long term (current) use of insulin; Z79.891 Long term (current) use of opiate analgesic; Z95.0 Presence of cardiac pacemaker; Z88.8 Allergy status to other drugs, medicaments and biological substances
CPT/HCPCS: 99211; C1751

== ENCOUNTER 2019-02-05 00:59 | Day surgery (SDC) | payer MEDICARE, OTHER ==
[2019-04-29] MEDS ORDERED: ARGINAID POWDE1 EACH PO (11:04)
[2019-04-29] MEDS ORDERED: PROBIOTIC PO (11:06)
[2019-04-29] MEDS ORDERED: THERA1 EACH PO (11:06)
[2019-04-29] MEDS ORDERED: Florastor250 MG PO (11:07)
[2019-04-29] MEDS ORDERED: BISA10S PR (11:08)
[2019-04-29] MEDS ORDERED: INSULANPEN SC (11:09)
[2019-04-29] MEDS ORDERED: Fleet Enema132 ML PR (11:09)
== END 2019-02-05 22:51 | disposition home or self-care (01) ==
LOC: WOUND 00:59
PROC: 0JBP0ZZ Excision of Left Lower Leg Subcutaneous Tissue and Fascia, Open Approach (ICD-10-PCS; principal; 2019-02-05)
DX: E11.622 Type 2 diabetes mellitus with other skin ulcer (principal); L97.822 Non-pressure chronic ulcer of other part of left lower leg with fat layer exposed; E11.621 Type 2 diabetes mellitus with foot ulcer; L97.419 Non-pressure chronic ulcer of right heel and midfoot with unspecified severity; L97.429 Non-pressure chronic ulcer of left heel and midfoot with unspecified severity; B96.89 Other specified bacterial agents as the cause of diseases classified elsewhere; B95.2 Enterococcus as the cause of diseases classified elsewhere; B96.4 Proteus (mirabilis) (morganii) as the cause of diseases classified elsewhere; B96.6 Bacteroides fragilis [B. fragilis] as the cause of diseases classified elsewhere; I87.2 Venous insufficiency (chronic) (peripheral); I70.25 Atherosclerosis of native arteries of other extremities with ulceration; E11.51 Type 2 diabetes mellitus with diabetic peripheral angiopathy without gangrene; E11.65 Type 2 diabetes mellitus with hyperglycemia; I44.2 Atrioventricular block, complete; I10 Essential (primary) hypertension; Z95.0 Presence of cardiac pacemaker; Z89.422 Acquired absence of other left toe(s)
CPT/HCPCS: 87071; 87075; 87205

== ENCOUNTER 2019-02-08 08:14 | Emergency (ER) | payer MEDICARE, OTHER ==
[~2019-02-08] VITALS: Ht 160 cm; Wt 113.4 kg
[2019-02-08] MEDS ORDERED: MELA3 PO (08:50)
[2019-02-08] MEDS ORDERED: CETI5 PO (08:51)
[2019-02-08] MEDS ORDERED: LOSA50 PO (08:51)
[2019-02-08] MEDS ORDERED: CEPH500 PO (08:51)
[2019-02-08] MEDS ORDERED: Florastor250 MG PO (08:52)
[2019-02-08] MEDS ORDERED: LINE600 PO (08:53)
[2019-02-08] MEDS ORDERED: ACET325 PO (08:53)
[2019-02-08] MEDS ORDERED: HYDR1TAB94 PO (08:54)
[2019-02-08] MEDS ORDERED: Humalog100 UNIT/1 SC (08:56)
[2019-02-08] MEDS ORDERED: CEFOXITIN (08:56)
[2019-04-29] MEDS ORDERED: ARGINAID POWDE1 EACH PO (11:04)
[2019-04-29] MEDS ORDERED: PROBIOTIC PO (11:06)
[2019-04-29] MEDS ORDERED: THERA1 EACH PO (11:06)
[2019-04-29] MEDS ORDERED: Florastor250 MG PO (11:07)
[2019-04-29] MEDS ORDERED: BISA10S PR (11:08)
[2019-04-29] MEDS ORDERED: Fleet Enema132 ML PR (11:09)
[2019-04-29] MEDS ORDERED: INSULANPEN SC (11:09)
== END 2019-02-08 12:39 | disposition home or self-care (01) ==
LOC: ER 08:14
DX: T82.898A Other specified complication of vascular prosthetic devices, implants and grafts, initial encounter (principal); E11.621 Type 2 diabetes mellitus with foot ulcer; L97.509 Non-pressure chronic ulcer of other part of unspecified foot with unspecified severity; M81.0 Age-related osteoporosis without current pathological fracture; I87.2 Venous insufficiency (chronic) (peripheral); E66.9 Obesity, unspecified; Z88.2 Allergy status to sulfonamides; Z88.8 Allergy status to other drugs, medicaments and biological substances; Z79.899 Other long term (current) drug therapy
CPT/HCPCS: 99283

== ENCOUNTER 2019-02-19 12:13 | Observation (INO) | payer MEDICARE, OTHER ==
[~2019-02-19] VITALS: Ht 167.6 cm; Wt 97.8 kg
[~2019-02-19 12:13] MED LIST changes: +CEFOXITIN; +CEPH500 PO; +CETI5 PO; +Florastor250 MG PO; +HYDR1TAB94 PO; +LINE600 PO
[2019-02-19] MEDS ORDERED: Pedi-Dri 100,0060 GM TOP (13:28)
[2019-02-19] MEDS ORDERED: INSULANPEN SC (13:29)
[2019-02-19] MEDS ORDERED: DOCU100 PO (13:31)
[2019-02-19] MEDS ORDERED: Atrovent Inha12.9 GM INH (13:34)
[2019-02-19] MEDS ORDERED: TUMS500 MG PO (13:54)
[2019-02-19] MEDS ORDERED: DOXY100 PO (13:57)
--- NOTE | 2019-02-19 16:34 | NUR ---
CALLED DR GROVES BP AND RED SIMON AREA. ADVISED WE HAVE CALLED IN PODIATRY. ORDERS PENDING FOR BP AND SIMON
--- NOTE | 2019-02-19 18:10 | NUR ---
DR DANNY SCHREIBER GIVEN NOW AND LISINOPRIL D/C HAVE LOSARTAN. DONE
--- NOTE | 2019-02-19 18:32 | NUR ---
PT PLEASANT SINCE ADMIT. PLACED ON TWO PILLOWS TO FLOAT COCCYX. FLOATED LEGS ON PILLOWS. PUT HEAL PROTECTORS ON PER DR. WOUNDS ON HEALS, TOES, COCCYX. SIMON AREA RED. PENDING NYSTATIN ORDER. PODIATRY STATES NO SURG NEEDED AT THIS TIME. PLACED DINNER ORDER. BED IN LOW POSITION, CALL LITE IN REACH. CALLS APPROP. IS TWO ASST TO BSC. DR IS OKAY WITH STANDING AND SHORT AMT OF STEPS.
--- NOTE | 2019-02-20 04:32 | NUR ---
PT WAS UP OUT OF BED A 1X ASSIST WITH THE WALKER. PT WAS HYPERTENSIVE THIS SHIFT. GAVE HYDRALAZINE ORDERED, WITH GOOD EFFECT. PT'S WEIGHT KEPT OFF WOUNDS AND PRESSURE POINTS. OFFERRED NORCO PER MAR, BUT PT REFUSED AT THIS TIME. PT UP TO THE COMMODE WITH EASE AND HAD GOOD URINE OUTPUT AND 2 BMS THIS SHIFT. WILL CONTINUE TO MONITOR PT.
[2019-02-20 05:27] LABS: BASOPHILS ABSOLUTE AUTO 0.06 K/mm3 (0.00-0.23); BASOPHILS PERCENT AUTO 1 % (0-2); EOSINOPHILS ABSOLUTE AUTO 0.23 K/mm3 (0.00-0.68); EOSINOPHILS PERCENT AUTO 2 % (0-6); Hematocrit 26.9 % (33.0-51.0); Hemoglobin 8.3 g/dL (11.5-16.0); IMMATURE GRAN ABSOLUTE AUTO 0.05 K/mm3 (0.00-0.10); IMMATURE GRAN PERCENT AUTO 1 % (0-1); LYMPHOCYTES ABSOLUTE AUTO 1.52 K/mm3 (0.84-5.20); LYMPHOCYTES PERCENT AUTO 15 % (21-46); MONOCYTES ABSOLUTE AUTO 1.18 K/mm3 (0.16-1.47); MONOCYTES PERCENT AUTO 12 % (4-13); Mean Corpuscular HGB 23.5 pg (26.0-34.0); Mean Corpuscular HGB Conc 30.9 g/dL (31.5-36.5); Mean Corpuscular Volume 76 fL (80-100); NEUTROPHILS PERCENT AUTO 69 % (41-73); Platelet Count 478 K/mm3 (150-400); RDW Coefficient Variation 16.4 % (11.7-14.2); RDW Standard Deviation 44.7 fL (35.1-46.3); Red Blood Cell Count 3.53 M/mm3 (3.80-5.20); White Blood Cell Count 9.84 K/mm3 (4.00-11.30)
[2019-02-20 05:48] LABS: Alanine Aminotransfer (ALT/SGP 12 U/L (12-78); Albumin, Blood 2.2 g/dL (3.4-5.0); Albumin/Globulin Ratio 0.6 (0.8-1.8); Alk Phos 137 U/L (50-136); Anion Gap 8 mmol/L (6-16); Aspartate Aminotrans (AST/SGOT 8 U/L (12-37); Bilirubin, Total 0.3 mg/dL (0.1-1.0); Blood Urea Nitrogen 11 mg/dL (8-24); CO2, Blood 26 mmol/L (21-32); Calcium, Blood 8.4 mg/dL (8.5-10.1); Chloride, Blood 103 mmol/L (98-108); Creatinine, Blood 0.65 mg/dL (0.40-1.00); Globulin, Blood 3.6 g/dL (2.2-4.0); Glomerular Filtration Rate >60 (60-); Glucose, Blood 55 mg/dL (70-99); Potassium, Blood 4.4 mmol/L (3.5-5.5); Sodium, Blood 137 mmol/L (136-145); Total Protein, Blood 5.8 g/dL (6.4-8.2)
--- NOTE | 2019-02-20 06:42 | NUR ---
PT NOTED TO BE HYPOGLYCEMIC ON MORNING LABS. PT'S ONLY SYMPTOM WAS BEING CLAMMY. 2 CONTAINERS OF APPLE JUICE GIVEN. WILL CONTINUE TO MONITOR PT.
--- NOTE | 2019-02-20 14:43 | NUR ---
[facility] inital note: Mrs. Mckinney was tearful and expressed fear that she would have to return to [facility]. She does not beleive she recieved proper care and attention there. She lives with her son who, unfortunately, is a long-haul truck-driver education instructor. He is gone for long periods of time. She really wants to go home and is willing to follow any recommendations to get there. I provided theraputic listening, emotional affirmation, and prayer to good effect. I will remain available.
--- NOTE | 2019-02-20 15:43 | NUR ---
PATIENT A/OX4, UP WITH FWW AND 1 ASSIST IN ROOM. WORKED WITH PT TODAY. REPORTS PAIN IN FEET BILATERALLY FROM ULCER. DRESSINGS PLACED TO BOTH HEELS USING CALCIUM ALGINATE, FOAM DRESSING AND KERLIX. PATIENT DENIES NEED FOR PAIN MEDICATIONS, REPORTS PAIN RELIEVED WITH DRESSINGS. PATIENT UP TO CHAIR FOR MEALS. STARTED OF LEVAQUIN TODAY TO TREAT WOUNDS. BLOOD PRESSURE ELEVATED TODAY AND METOPROLOL HAS BEEN INCREASED. PATIENT IS CALM AND COOPERATIVE WITH CARE AND CALL APPROPRIATELY FOR ASSISTANCE.
--- NOTE | 2019-02-21 03:24 | NUR ---
PT HAD MINOR DIAPHESIS AROUND 0300. BLOOD GLUCOSE CHECKED AND WAS WNL. OTHER VSS. PT WAS UP TO THE TOILET WITHOUT INCIDENT A STANDBY ASSIST. PT TOOK ONE NORCO FOR PAIN TO GOOD EFFECT. PT SAFETY MAINTAINED. WILL CONTINUE TO MONITOR.
[2019-02-21 05:38] LABS: Anion Gap 8 mmol/L (6-16); Blood Urea Nitrogen 12 mg/dL (8-24); CO2, Blood 25 mmol/L (21-32); Calcium, Blood 8.7 mg/dL (8.5-10.1); Chloride, Blood 100 mmol/L (98-108); Creatinine, Blood 0.71 mg/dL (0.40-1.00); Glomerular Filtration Rate >60 (60-); Glucose, Blood 94 mg/dL (70-99); Potassium, Blood 4.4 mmol/L (3.5-5.5); Sodium, Blood 133 mmol/L (136-145)
[2019-02-21] MEDS ORDERED: LEVOFLOXACIN750 MG PO (11:51)
[2019-02-21] MEDS ORDERED: Humalog100 UNIT/3 SC (11:51)
[2019-02-21] MEDS ORDERED: METO50ER PO (11:52)
[2019-02-21] MEDS ORDERED: MIRALAX17 GM PO (11:52)
[2019-02-21] MEDS ORDERED: OXYC5 PO (11:53)
--- NOTE | 2019-02-21 18:14 | NUR ---
PATIENT D/C'D TO HOME WITH SON. RX MEDICATIONS FAXED TO [facility] AND HARD SCRIPT FOR OXYCODONE GIVEN TO PATIENT. D/C INSTRUCTIONS AND EDUCATIONS DISCUSSED WITH PATIENT AND COPY PROVIDED. PATIENT DENIES ANY FURTHER QUESTIONS OR CONCERNS.
[2019-04-29] MEDS ORDERED: ARGINAID POWDE1 EACH PO (11:04)
[2019-04-29] MEDS ORDERED: THERA1 EACH PO (11:06)
[2019-04-29] MEDS ORDERED: PROBIOTIC PO (11:06)
[2019-04-29] MEDS ORDERED: Florastor250 MG PO (11:07)
[2019-04-29] MEDS ORDERED: BISA10S PR (11:08)
[2019-04-29] MEDS ORDERED: INSULANPEN SC (11:09)
[2019-04-29] MEDS ORDERED: Fleet Enema132 ML PR (11:09)
== END 2019-02-21 18:05 | disposition home health service (06) ==
LOC: ER 12:13 → ERHOLD 12:14 → ER 12:14 → MEDS 12:15 → ERHOLD 12:15 → MEDS 12:16 → ERHOLD 14:54 → MEDS 14:54 → ERHOLD 14:55 → MEDS 14:57 → ERHOLD 14:57 → MEDS 14:57 → ENPENDDIS 02-21 11:26 → MEDS 02-21 18:05
PROVIDERS: ADMIT Internal Medicine
DX: E11.621 Type 2 diabetes mellitus with foot ulcer (principal); L97.529 Non-pressure chronic ulcer of other part of left foot with unspecified severity; L89.629 Pressure ulcer of left heel, unspecified stage; L89.619 Pressure ulcer of right heel, unspecified stage; E11.51 Type 2 diabetes mellitus with diabetic peripheral angiopathy without gangrene; I73.9 Peripheral vascular disease, unspecified; E11.42 Type 2 diabetes mellitus with diabetic polyneuropathy; I10 Essential (primary) hypertension; D64.9 Anemia, unspecified; Z89.422 Acquired absence of other left toe(s); Z79.899 Other long term (current) drug therapy; Z79.4 Long term (current) use of insulin; Z88.2 Allergy status to sulfonamides; Z88.8 Allergy status to other drugs, medicaments and biological substances; Z91.09 Other allergy status, other than to drugs and biological substances
CPT/HCPCS: 36415; 73630; 80048; 80053; 82728; 82947; 83540; 83550; 85025; 85651; 86140; 96372; 96374; 97110; 97116; 97162; 97530; 99284-25; A9270-GY; G0378; J1644; J1815; J2405

== ENCOUNTER 2019-03-05 08:09 | Day surgery (SDC) | payer MEDICARE, OTHER ==
[~2019-03-05 08:09] MED LIST changes: +Atrovent Inha12.9 GM INH; +DOCU100 PO; +Humalog100 UNIT/3 SC; +LEVOFLOXACIN750 MG PO; +METO50ER PO; +MIRALAX17 GM PO; +OXYC5 PO; +Pedi-Dri 100,0060 GM TOP; +TUMS500 MG PO
[2019-04-29] MEDS ORDERED: ARGINAID POWDE1 EACH PO (11:04)
[2019-04-29] MEDS ORDERED: PROBIOTIC PO (11:06)
[2019-04-29] MEDS ORDERED: THERA1 EACH PO (11:06)
[2019-04-29] MEDS ORDERED: Florastor250 MG PO (11:07)
[2019-04-29] MEDS ORDERED: BISA10S PR (11:08)
[2019-04-29] MEDS ORDERED: INSULANPEN SC (11:09)
[2019-04-29] MEDS ORDERED: Fleet Enema132 ML PR (11:09)
== END 2019-03-05 22:58 | disposition home or self-care (01) ==
LOC: WOUND 08:09
DX: E11.621 Type 2 diabetes mellitus with foot ulcer (principal); E11.622 Type 2 diabetes mellitus with other skin ulcer; E11.51 Type 2 diabetes mellitus with diabetic peripheral angiopathy without gangrene; I70.25 Atherosclerosis of native arteries of other extremities with ulceration; L97.822 Non-pressure chronic ulcer of other part of left lower leg with fat layer exposed; I87.2 Venous insufficiency (chronic) (peripheral)
CPT/HCPCS: G0463

== ENCOUNTER 2019-03-12 00:16 | Day surgery (SDC) | payer MEDICARE, OTHER ==
[2019-04-29] MEDS ORDERED: ARGINAID POWDE1 EACH PO (11:04)
[2019-04-29] MEDS ORDERED: THERA1 EACH PO (11:06)
[2019-04-29] MEDS ORDERED: PROBIOTIC PO (11:06)
[2019-04-29] MEDS ORDERED: Florastor250 MG PO (11:07)
[2019-04-29] MEDS ORDERED: BISA10S PR (11:08)
[2019-04-29] MEDS ORDERED: INSULANPEN SC (11:09)
[2019-04-29] MEDS ORDERED: Fleet Enema132 ML PR (11:09)
== END 2019-03-12 22:40 | disposition home or self-care (01) ==
LOC: WOUND
DX: E11.622 Type 2 diabetes mellitus with other skin ulcer (principal); I70.203 Unspecified atherosclerosis of native arteries of extremities, bilateral legs; E11.621 Type 2 diabetes mellitus with foot ulcer; L97.821 Non-pressure chronic ulcer of other part of left lower leg limited to breakdown of skin; I87.2 Venous insufficiency (chronic) (peripheral); I70.25 Atherosclerosis of native arteries of other extremities with ulceration
CPT/HCPCS: 87071; 87075; 87076; 87147; 87185; 87205; 88305

== ENCOUNTER 2019-03-18 00:25 | Day surgery (SDC) | payer MEDICARE, OTHER ==
[2019-04-29] MEDS ORDERED: ARGINAID POWDE1 EACH PO (11:04)
[2019-04-29] MEDS ORDERED: THERA1 EACH PO (11:06)
[2019-04-29] MEDS ORDERED: PROBIOTIC PO (11:06)
[2019-04-29] MEDS ORDERED: Florastor250 MG PO (11:07)
[2019-04-29] MEDS ORDERED: BISA10S PR (11:08)
[2019-04-29] MEDS ORDERED: Fleet Enema132 ML PR (11:09)
[2019-04-29] MEDS ORDERED: INSULANPEN SC (11:09)
== END 2019-03-18 22:48 | disposition home or self-care (01) ==
LOC: WOUND 00:25
DX: E11.621 Type 2 diabetes mellitus with foot ulcer (principal); E11.622 Type 2 diabetes mellitus with other skin ulcer; E11.51 Type 2 diabetes mellitus with diabetic peripheral angiopathy without gangrene; I70.25 Atherosclerosis of native arteries of other extremities with ulceration; L97.523 Non-pressure chronic ulcer of other part of left foot with necrosis of muscle; L97.513 Non-pressure chronic ulcer of other part of right foot with necrosis of muscle; L97.222 Non-pressure chronic ulcer of left calf with fat layer exposed; I87.2 Venous insufficiency (chronic) (peripheral)

== ENCOUNTER 2019-03-26 08:49 | Day surgery (SDC) | payer MEDICARE, OTHER ==
[2019-04-29] MEDS ORDERED: ARGINAID POWDE1 EACH PO (11:04)
[2019-04-29] MEDS ORDERED: PROBIOTIC PO (11:06)
[2019-04-29] MEDS ORDERED: THERA1 EACH PO (11:06)
[2019-04-29] MEDS ORDERED: Florastor250 MG PO (11:07)
[2019-04-29] MEDS ORDERED: BISA10S PR (11:08)
[2019-04-29] MEDS ORDERED: INSULANPEN SC (11:09)
[2019-04-29] MEDS ORDERED: Fleet Enema132 ML PR (11:09)
== END 2019-03-26 23:07 | disposition home or self-care (01) ==
LOC: WOUND 08:49
DX: E11.622 Type 2 diabetes mellitus with other skin ulcer (principal); L97.822 Non-pressure chronic ulcer of other part of left lower leg with fat layer exposed; E11.621 Type 2 diabetes mellitus with foot ulcer; L97.525 Non-pressure chronic ulcer of other part of left foot with muscle involvement without evidence of necrosis; L97.515 Non-pressure chronic ulcer of other part of right foot with muscle involvement without evidence of necrosis; E11.65 Type 2 diabetes mellitus with hyperglycemia; E11.51 Type 2 diabetes mellitus with diabetic peripheral angiopathy without gangrene; I70.25 Atherosclerosis of native arteries of other extremities with ulceration; S81.802D Unspecified open wound, left lower leg, subsequent encounter; I87.2 Venous insufficiency (chronic) (peripheral)

== ENCOUNTER 2019-04-02 00:29 | Day surgery (SDC) | payer MEDICARE, OTHER ==
[2019-04-29] MEDS ORDERED: ARGINAID POWDE1 EACH PO (11:04)
[2019-04-29] MEDS ORDERED: PROBIOTIC PO (11:06)
[2019-04-29] MEDS ORDERED: THERA1 EACH PO (11:06)
[2019-04-29] MEDS ORDERED: Florastor250 MG PO (11:07)
[2019-04-29] MEDS ORDERED: BISA10S PR (11:08)
[2019-04-29] MEDS ORDERED: Fleet Enema132 ML PR (11:09)
[2019-04-29] MEDS ORDERED: INSULANPEN SC (11:09)
== END 2019-04-02 22:52 | disposition home or self-care (01) ==
LOC: WOUND 00:29
DX: E11.621 Type 2 diabetes mellitus with foot ulcer (principal); E11.622 Type 2 diabetes mellitus with other skin ulcer; E11.51 Type 2 diabetes mellitus with diabetic peripheral angiopathy without gangrene; I70.25 Atherosclerosis of native arteries of other extremities with ulceration; L97.826 Non-pressure chronic ulcer of other part of left lower leg with bone involvement without evidence of necrosis; L97.525 Non-pressure chronic ulcer of other part of left foot with muscle involvement without evidence of necrosis; L97.413 Non-pressure chronic ulcer of right heel and midfoot with necrosis of muscle; S81.802D Unspecified open wound, left lower leg, subsequent encounter; I87.2 Venous insufficiency (chronic) (peripheral); I10 Essential (primary) hypertension

== ENCOUNTER 2019-04-09 00:12 | Day surgery (SDC) | payer MEDICARE, SELFPAY ==
[2019-04-29] MEDS ORDERED: ARGINAID POWDE1 EACH PO (11:04)
[2019-04-29] MEDS ORDERED: THERA1 EACH PO (11:06)
[2019-04-29] MEDS ORDERED: PROBIOTIC PO (11:06)
[2019-04-29] MEDS ORDERED: Florastor250 MG PO (11:07)
[2019-04-29] MEDS ORDERED: BISA10S PR (11:08)
[2019-04-29] MEDS ORDERED: INSULANPEN SC (11:09)
[2019-04-29] MEDS ORDERED: Fleet Enema132 ML PR (11:09)
== END 2019-04-09 22:56 | disposition home or self-care (01) ==
LOC: WOUND
DX: E11.621 Type 2 diabetes mellitus with foot ulcer (principal); L97.415 Non-pressure chronic ulcer of right heel and midfoot with muscle involvement without evidence of necrosis; L97.425 Non-pressure chronic ulcer of left heel and midfoot with muscle involvement without evidence of necrosis; E11.622 Type 2 diabetes mellitus with other skin ulcer; L97.821 Non-pressure chronic ulcer of other part of left lower leg limited to breakdown of skin; S81.802D Unspecified open wound, left lower leg, subsequent encounter; E11.51 Type 2 diabetes mellitus with diabetic peripheral angiopathy without gangrene; I70.25 Atherosclerosis of native arteries of other extremities with ulceration; I10 Essential (primary) hypertension
CPT/HCPCS: 87071; 87075; 87205; J2250; J2704; J3010

== ENCOUNTER 2019-04-16 00:16 | Day surgery (SDC) | payer MEDICARE, SELFPAY ==
[2019-04-16] MEDS ORDERED: ONDA4ODT MM (15:30)
[2019-04-16] MEDS ORDERED: HYDR1TAB94 PO (15:30)
[2019-04-29] MEDS ORDERED: ARGINAID POWDE1 EACH PO (11:04)
[2019-04-29] MEDS ORDERED: THERA1 EACH PO (11:06)
[2019-04-29] MEDS ORDERED: PROBIOTIC PO (11:06)
[2019-04-29] MEDS ORDERED: Florastor250 MG PO (11:07)
[2019-04-29] MEDS ORDERED: BISA10S PR (11:08)
[2019-04-29] MEDS ORDERED: INSULANPEN SC (11:09)
[2019-04-29] MEDS ORDERED: Fleet Enema132 ML PR (11:09)
== END 2019-04-16 23:14 | disposition home or self-care (01) ==
LOC: WOUND 00:16
DX: E11.621 Type 2 diabetes mellitus with foot ulcer (principal); E11.622 Type 2 diabetes mellitus with other skin ulcer; E11.51 Type 2 diabetes mellitus with diabetic peripheral angiopathy without gangrene; L97.518 Non-pressure chronic ulcer of other part of right foot with other specified severity; L97.526 Non-pressure chronic ulcer of other part of left foot with bone involvement without evidence of necrosis; L97.826 Non-pressure chronic ulcer of other part of left lower leg with bone involvement without evidence of necrosis; I70.25 Atherosclerosis of native arteries of other extremities with ulceration; S81.802D Unspecified open wound, left lower leg, subsequent encounter; I10 Essential (primary) hypertension; I87.2 Venous insufficiency (chronic) (peripheral); R00.2 Palpitations; L97.429 Non-pressure chronic ulcer of left heel and midfoot with unspecified severity; R11.0 Nausea; E11.9 Type 2 diabetes mellitus without complications; Z88.8 Allergy status to other drugs, medicaments and biological substances; Z88.2 Allergy status to sulfonamides
CPT/HCPCS: 36415; 80053; 85025; 93005; 93010; 93280; 99283-25; A9270-GY

== ENCOUNTER 2019-04-23 00:41 | Day surgery (SDC) | payer MEDICARE, OTHER, SELFPAY ==
[~2019-04-23 00:41] MED LIST changes: +ONDA4ODT MM
[2019-04-29] MEDS ORDERED: ARGINAID POWDE1 EACH PO (11:04)
[2019-04-29] MEDS ORDERED: THERA1 EACH PO (11:06)
[2019-04-29] MEDS ORDERED: PROBIOTIC PO (11:06)
[2019-04-29] MEDS ORDERED: Florastor250 MG PO (11:07)
[2019-04-29] MEDS ORDERED: BISA10S PR (11:08)
[2019-04-29] MEDS ORDERED: INSULANPEN SC (11:09)
[2019-04-29] MEDS ORDERED: Fleet Enema132 ML PR (11:09)
== END 2019-04-23 22:55 | disposition home or self-care (01) ==
LOC: WOUND 00:41
DX: E11.621 Type 2 diabetes mellitus with foot ulcer (principal); E11.622 Type 2 diabetes mellitus with other skin ulcer; L97.526 Non-pressure chronic ulcer of other part of left foot with bone involvement without evidence of necrosis; L97.826 Non-pressure chronic ulcer of other part of left lower leg with bone involvement without evidence of necrosis; L97.513 Non-pressure chronic ulcer of other part of right foot with necrosis of muscle; S81.802D Unspecified open wound, left lower leg, subsequent encounter; I87.2 Venous insufficiency (chronic) (peripheral); E11.51 Type 2 diabetes mellitus with diabetic peripheral angiopathy without gangrene; I70.25 Atherosclerosis of native arteries of other extremities with ulceration; I10 Essential (primary) hypertension
CPT/HCPCS: 36415; 80053; 85025; 99283; G0463

== ENCOUNTER 2019-05-01 12:49 | Inpatient (IN) | payer MEDICARE, OTHER, SELFPAY ==
[~2019-05-01] VITALS: Ht 162.6 cm; Wt 90.5 kg
[~2019-05-01 12:49] MED LIST changes: +ARGINAID POWDE1 EACH PO; +BISA10S PR; +Fleet Enema132 ML PR; +PROBIOTIC PO; +THERA1 EACH PO
--- NOTE | 2019-05-02 08:01 | NUR ---
PT ADMITTED TO [facility] VIA WC. TRANSFERS WITH 1 PERSON ASSIST. LUNG SOUNDS CLEAR. PT ALERT AND ORIENTED. SONS AT BEDSIDE.
--- NOTE | 2019-05-02 08:30 | NUR ---
DREESING IN PLACE TO FEET AND ANKLES BILATERALLY.
[2019-05-02 14:39] LABS: BASOPHILS ABSOLUTE AUTO 0.06 K/mm3 (0.00-0.23); BASOPHILS PERCENT AUTO 1 % (0-2); EOSINOPHILS ABSOLUTE AUTO 0.07 K/mm3 (0.00-0.68); EOSINOPHILS PERCENT AUTO 1 % (0-6); Hematocrit 29.5 % (33.0-51.0); IMMATURE GRAN ABSOLUTE AUTO 0.04 K/mm3 (0.00-0.10); IMMATURE GRAN PERCENT AUTO 0 % (0-1); LYMPHOCYTES ABSOLUTE AUTO 1.38 K/mm3 (0.84-5.20); LYMPHOCYTES PERCENT AUTO 14 % (21-46); MONOCYTES ABSOLUTE AUTO 0.81 K/mm3 (0.16-1.47); MONOCYTES PERCENT AUTO 8 % (4-13); Mean Corpuscular HGB Conc 30.5 g/dL (31.5-36.5); Mean Corpuscular Volume 75 fL (80-100); NEUTROPHILS ABSOLUTE AUTO 7.86 K/mm3 (1.96-9.15); NEUTROPHILS PERCENT AUTO 77 % (41-73); Platelet Count 307 K/mm3 (150-400); RDW Coefficient Variation 16.7 % (11.7-14.2); RDW Standard Deviation 45.7 fL (35.1-46.3); Red Blood Cell Count 3.91 M/mm3 (3.80-5.20); White Blood Cell Count 10.22 K/mm3 (4.00-11.30)
[2019-05-02 16:14] LABS: Alanine Aminotransfer (ALT/SGP 11 U/L (12-78); Albumin, Blood 2.3 g/dL (3.4-5.0); Albumin/Globulin Ratio 0.6 (0.8-1.8); Alk Phos 123 U/L (50-136); Anion Gap 5 mmol/L (6-16); Aspartate Aminotrans (AST/SGOT 11 U/L (12-37); Bilirubin, Total 0.4 mg/dL (0.1-1.0); Blood Urea Nitrogen 15 mg/dL (8-24); Bun/Creatinine Ratio 22.8 (12.0-20.0); CO2, Blood 27 mmol/L (21-32); Calcium, Blood 8.8 mg/dL (8.5-10.1); Chloride, Blood 100 mmol/L (98-108); Creatinine, Blood 0.66 mg/dL (0.40-1.00); Globulin, Blood 3.9 g/dL (2.2-4.0); Glomerular Filtration Rate >60 (60-); Glucose, Blood 158 mg/dL (70-99); Potassium, Blood 4.7 mmol/L (3.5-5.5); Sodium, Blood 132 mmol/L (136-145); Total Protein, Blood 6.2 g/dL (6.4-8.2)
--- NOTE | 2019-05-02 18:48 | NUR ---
post op vss and complete, pt admitted, dr stewart rounded on pt, pt medicated per mar, pt remains a/0 x 4, pleasant/cooperative, [place]. pt with wound vac on r ankle/foot, L BKA intake, no shadowing on stump sock. pt denies SOB. Implanted pacemeker visualized WNL. eaton catheter patent/draining yellow urine. received consent to photograph wounds and place images in chart
[2019-05-03 04:02] LABS: BASOPHILS ABSOLUTE AUTO 0.04 K/mm3 (0.00-0.23); BASOPHILS PERCENT AUTO 0 % (0-2); EOSINOPHILS ABSOLUTE AUTO 0.15 K/mm3 (0.00-0.68); EOSINOPHILS PERCENT AUTO 2 % (0-6); Hematocrit 25.4 % (33.0-51.0); Hemoglobin 7.7 g/dL (11.5-16.0); IMMATURE GRAN ABSOLUTE AUTO 0.03 K/mm3 (0.00-0.10); IMMATURE GRAN PERCENT AUTO 0 % (0-1); LYMPHOCYTES PERCENT AUTO 21 % (21-46); MONOCYTES ABSOLUTE AUTO 1.05 K/mm3 (0.16-1.47); MONOCYTES PERCENT AUTO 12 % (4-13); Mean Corpuscular HGB 23.2 pg (26.0-34.0); Mean Corpuscular HGB Conc 30.3 g/dL (31.5-36.5); Mean Corpuscular Volume 77 fL (80-100); Mean Platelet Volume 9.5 fL (9.1-12.4); NEUTROPHILS ABSOLUTE AUTO 5.84 K/mm3 (1.96-9.15); NEUTROPHILS PERCENT AUTO 65 % (41-73); Platelet Count 255 K/mm3 (150-400); RDW Coefficient Variation 16.6 % (11.7-14.2); RDW Standard Deviation 46.9 fL (35.1-46.3); Red Blood Cell Count 3.32 M/mm3 (3.80-5.20); White Blood Cell Count 9.01 K/mm3 (4.00-11.30)
[2019-05-03 04:21] LABS: Albumin/Globulin Ratio 0.6 (0.8-1.8); Bilirubin, Total 0.4 mg/dL (0.1-1.0); Bun/Creatinine Ratio 17.6 (12.0-20.0); Calcium, Blood 8.2 mg/dL (8.5-10.1); Creatinine, Blood 1.02 mg/dL (0.40-1.00); Globulin, Blood 3.3 g/dL (2.2-4.0); Potassium, Blood 4.8 mmol/L (3.5-5.5); Total Protein, Blood 5.3 g/dL (6.4-8.2)
--- NOTE | 2019-05-03 05:40 | NUR ---
POD 1 S/P L BKA AND I&D OF RLE. PT VSS T/O NIGHT, 2LO2 PLACED TO KEEP SATS >90% WHILE SLEEPING. LLE DRESSING CDI, STUMP SOCK IN PLACE, SANDRITA PUTTING OUT SS DRNG. FOAM COMPRESSED W/SX MAINTAINED TO VAC ON RLE. LLE ELEVATED IN BED, R HEEL FLOATED. PT REPOSITIONED FREQ DURING NIGHT, PT ASSISTING W/REPOSITIONING IN BED. FERRERA DRNG YELLOW URINE. PAIN MGD PER EMAR W/REP RELIEF. WILL CONT TO MONITOR UNTIL REP GIVEN TO ONCOMING RN.
--- NOTE | 2019-05-03 06:34 | NUR ---
H&H: PT H&H NOTED TO HAVE DROPPED TO 7.7/25.4. CALL PLACED TO MD. LABS AND VITALS REVIEWED. NO NEW ORDERS AT THIS TIME.
--- NOTE | 2019-05-03 09:35 | NUR ---
PHONED SON CALLED SON PER PT REQUEST ABOUT ORDERS TO RECEIVE BLOOD. SON GAVE THE OKAY TO GIVE.
--- NOTE | 2019-05-03 11:17 | NUR ---
TRANFUSION 1 UNIT PRBC BEGIN TRANSFUSING. PT LAYING IN BED. LUNG SOUNDS CLEAR, DIMINSHED TOWARDS BASES.
--- NOTE | 2019-05-03 14:00 | NUR ---
BP LOW WITH VS CHECKS. PT ALERT AND ORIENTED, ASYMTOMATIC. DR. CASTANO NOTIFIED. 500 ML NORMAL SALINE BOLUS ORDERED AND STARTED. WILL CONTINUE TO MONITOR.
--- NOTE | 2019-05-03 14:03 | NUR ---
PRBC 1 UNIT PRBC DONE INFUSING. LUNG SOUNDS CLEAR. PT BLOOD PRESSURE DROPPED TO 79/33. SALINE BOLUS INFUSING. PATIENT LAYING FLAT IN BED. PT COMPLAINS OF A "LITTLE" DIZZINESS AND STATES PAIN IS STARTING TO RETURN. AFTER LAYING FLAT BP UP TO 91/37. SATS AT 95% ON 2L. PT RECEIVED 0.5 DILAUDID AT 1230 FOR A PAIN REPORT OF 10/10. PT STATED THAT WAS EFFECTIVE. WILL CONTINUE TO MONITOR PATIENT BLOOD PRESSURE AND LEVEL OF CONCIOUSNESS
[2019-05-03 16:17] LABS: Vancomycin, Trough 23.7 ug/mL (5.0-10.0)
--- NOTE | 2019-05-03 16:23 | NUR ---
CALLED DR. CASTANO R/T CRITICAL VANCO TROUGH OF 23.7. MED MANAGED PER PHARMACY AWAITING DOSE CHANGES.
[2019-05-03 18:10] LABS: Hematocrit 27.9 % (33.0-51.0); Hemoglobin 8.8 g/dL (11.5-16.0); Mean Corpuscular HGB 23.6 pg (26.0-34.0); Mean Corpuscular HGB Conc 31.5 g/dL (31.5-36.5); Mean Corpuscular Volume 75 fL (80-100); RDW Coefficient Variation 16.9 % (11.7-14.2); RDW Standard Deviation 45.7 fL (35.1-46.3); Red Blood Cell Count 3.73 M/mm3 (3.80-5.20)
--- NOTE | 2019-05-03 18:20 | NUR ---
SHIFT SUMMARY POD 1 LBKA AND R ANKLE I&D. PATIENT [id number], PATIEN BP DROPPED TO BELOW 80 1.5 HOURS AFTER RECEIVING IV DILAUDID AND AT THE END OF PRBC TRANSFUSION. IV BOLUS NS GIVEN AND PATIENT BP BACK UP TO BASELINE. 1UNIT PRBC INFUSED DURING SHIFT. PT TOLERATED WELL UNTIL BP DROP, LUNG SOUNDS CLEAR DURING. PATIENT ASYMPTOMATIC DURING. REPORTED NO DIZZINESS OR LIGHTHEADEDNESS. PATIENT REPOSITIONS IN BED WITH SOME ASSISTANCE. SANDRITA DRAIN PULLED FROM LLE THIS AM. AND WOUND VAC STILL DRAINING SS IN RIGHT ANKLE. PATIENT MEDICATED FOR PAIN PER EMAR DURING SHIFT. TOLERATING ORAL MEDS WELL. NUMBNESS IN HANDS REPORTED THIS AM. FERRERA IN PLACE PATENT AND DRAINING
[2019-05-03 18:44] LABS: Mean Platelet Volume 9.2 fL (9.1-12.4); Platelet Count 254 K/mm3 (150-400)
[2019-05-04 03:40] LABS: BASOPHILS ABSOLUTE AUTO 0.06 K/mm3 (0.00-0.23); BASOPHILS PERCENT AUTO 1 % (0-2); EOSINOPHILS ABSOLUTE AUTO 0.31 K/mm3 (0.00-0.68); EOSINOPHILS PERCENT AUTO 4 % (0-6); Hematocrit 25.7 % (33.0-51.0); Hemoglobin 7.8 g/dL (11.5-16.0); IMMATURE GRAN ABSOLUTE AUTO 0.05 K/mm3 (0.00-0.10); IMMATURE GRAN PERCENT AUTO 1 % (0-1); LYMPHOCYTES ABSOLUTE AUTO 1.75 K/mm3 (0.84-5.20); LYMPHOCYTES PERCENT AUTO 20 % (21-46); MONOCYTES ABSOLUTE AUTO 1.06 K/mm3 (0.16-1.47); MONOCYTES PERCENT AUTO 12 % (4-13); Mean Corpuscular HGB 23.1 pg (26.0-34.0); Mean Corpuscular HGB Conc 30.4 g/dL (31.5-36.5); Mean Corpuscular Volume 76 fL (80-100); Mean Platelet Volume 9.1 fL (9.1-12.4); NEUTROPHILS ABSOLUTE AUTO 5.52 K/mm3 (1.96-9.15); NEUTROPHILS PERCENT AUTO 63 % (41-73); Platelet Count 265 K/mm3 (150-400); RDW Standard Deviation 46.9 fL (35.1-46.3); Red Blood Cell Count 3.37 M/mm3 (3.80-5.20); White Blood Cell Count 8.75 K/mm3 (4.00-11.30)
[2019-05-04 03:58] LABS: Bun/Creatinine Ratio 16.5 (12.0-20.0); Calcium, Blood 7.8 mg/dL (8.5-10.1); Creatinine, Blood 1.33 mg/dL (0.40-1.00); Potassium, Blood 4.7 mmol/L (3.5-5.5)
--- NOTE | 2019-05-04 07:46 | NUR ---
POD 2 S/P L BKA/I&D OF RLE. PT VSS T/O NIGHT. DRESSINGS CDI, SM AMT SS DRNG FROM R ANKLE, GOOD SEAL AND SX TO WOUND VAC. PAIN MGD W/PO PAIN MEDS W/REP RELIEF. 1+ EDEMA NOTED TO BUE THIS AM, ARMS ELEVATED IN BED. PT KEVEN PO FLUIDS. PLAN TO D/C FERRERA CATH AFTER PT EVAL. PT USING CALL LIGHT FOR ASSISTANCE, REP GIVEN TO DAY RN.
--- NOTE | 2019-05-04 10:35 | NUR ---
CATHETER CATHETER REMOVED WNL. PT DENIES DISCOMFORT. DEPENDS IN PLACE. 600ML IN BAG WHEN PULLED
[2019-05-04 15:54] LABS: Hematocrit 25.1 % (33.0-51.0); Hemoglobin 7.7 g/dL (11.5-16.0); Mean Corpuscular HGB 23.5 pg (26.0-34.0); Mean Corpuscular HGB Conc 30.7 g/dL (31.5-36.5); Mean Corpuscular Volume 77 fL (80-100); Mean Platelet Volume 9.5 fL (9.1-12.4); Platelet Count 259 K/mm3 (150-400); RDW Coefficient Variation 16.9 % (11.7-14.2); RDW Standard Deviation 47.3 fL (35.1-46.3); Red Blood Cell Count 3.27 M/mm3 (3.80-5.20); White Blood Cell Count 9.77 K/mm3 (4.00-11.30)
--- NOTE | 2019-05-04 19:03 | NUR ---
TRANSFUSION 1 UNIT PRBC BEGAN INFUSING LUNG SOUNDS CLEAR EXCEPT SMALL CRACKLES IN LEFT LOWER LOBE. VSS, PATIENT CURRENTLY LAYING IN BED. WILL MONITOR FOR REACTIONS TO TRANSFUSION
--- NOTE | 2019-05-04 19:13 | NUR ---
SHIFT SUMMARY PATIENT POD1 LBKA ADN I&D RIGHT ANKLE. LEFT LEG ELEVATED ON PILLOW SOCK IN PLACE. RIGHT LEG WOUND VAC IN PLACE SUCTIONING. PATING HAS BEEN AAX04 MEDICATED FOR PAIN X2 DURING SHIFT. PATIENT REQUESTED ONE NORCO DURING LAST DOSE AND AFTER AN HOUR WAS NOT ENOUGH RELIEF. PATIENT HAS BEEN ON 2L DURING SHIFT. SATS DROP WHEN SLEEPING STILL. ENCOURAGING DEEP BREATHING. PATIENT REPOSITIONED EVERY 2 HOURS WITH MINIMAL ASSIST. I UNIT PRBC BEGAN INFUSING AT 1900. TOLERATING WELL SO FAR. PATIENT COMPLAINING OF SOME LIGHT HEADEDNESS WHEN SATS DROP. STRAIGHT CATH NEEDED FOR RETENTION. CATHETER REMOVED THIS AFTERNOON. VOIDS HAVE BEEN VERY SMALL WHEN PATIENT ATTEMPTS TO VOID
--- NOTE | 2019-05-04 19:29 | NUR ---
PT REQUIRED STRAIGHT CATH TO EMPTY HER BLADDER. BLADDER SCAN SHOWED 409ML, PT ATTEMPTED TO VOID AND WAS ABLE TO EMPTY 100ML. POST VOID RESIDUAL SHOWED 329ML. STRAIGHT CATH EMPTIED APPROXIMATELY 325ML.
[2019-05-05 01:43] LABS: Hematocrit 28.2 % (33.0-51.0); Hemoglobin 8.7 g/dL (11.5-16.0); Mean Corpuscular HGB 24.2 pg (26.0-34.0); Mean Corpuscular HGB Conc 30.9 g/dL (31.5-36.5); Mean Corpuscular Volume 79 fL (80-100); Mean Platelet Volume 9.2 fL (9.1-12.4); Platelet Count 290 K/mm3 (150-400); RDW Coefficient Variation 17.2 % (11.7-14.2); Red Blood Cell Count 3.59 M/mm3 (3.80-5.20); White Blood Cell Count 10.07 K/mm3 (4.00-11.30)
[2019-05-05 05:03] LABS: Vancomycin, Trough 21.2 ug/mL (5.0-10.0)
--- NOTE | 2019-05-05 05:59 | NUR ---
SHIFT SUMMARY LYING IN SEMI FOWLERS WITH EYES CLOSED. HAS RESTED WELL THIS SHIFT. REPOSITIONED Q 2HRS FOR COMFORT. MEDICATED FOR PAIN X2 THIS SHIFT. DENIES FURHTER NEEDS OR WANTS AT THIS TIME. SAFETY MEASURES IN PLACE. WILL GIVE HAND OFF TO ONCOMING SHIFT USING SBAR.
--- NOTE | 2019-05-05 07:40 | NUR ---
dr stewart and Dr Rodrigueztrate to round on pt. hearing examiner assisted Dr Stewart for BKA dressing change. pt provided permission for SN to assist this RN.
--- NOTE | 2019-05-05 12:51 | NUR ---
peripheral IV removed WNL by SN year 2. pt transported via gurney in [place] with wheelchair and belongings transported with her. report called to [facility] reHab nurse Wilson. Wound vac dressing changes on R ankle.
--- NOTE | 2019-05-05 13:42 | NUR ---
Spritual care visit conducted. Patient tells me that she is heading back to a care home facility today. Patient explains about the emotional strain her physical limitations create for her and she also speaks of the guilt she feels about the food choices she has made through the years that have led to her medical conditions. Patient tells me about the of her and how that impacts her still to this day. I listen empathically and provide pastoral care, grief support and prayer. Patient responds well and voices appreciation for the visit.
== END 2019-05-05 12:43 | DRG 240 ==
LOC: SURS 05-02 06:59 → PRE IP 05-02 08:30 → SURS 05-02 13:43
PROVIDERS: Orthopaedic Surgery; ADMIT Family Medicine
PROC: 0Y6J0Z1 Detachment at Left Lower Leg, High, Open Approach (ICD-10-PCS; principal; 2019-05-02 08:30)
PROC: 0JBQ0ZZ Excision of Right Foot Subcutaneous Tissue and Fascia, Open Approach (ICD-10-PCS; 2019-05-02 08:30)
DX: E11.51 Type 2 diabetes mellitus with diabetic peripheral angiopathy without gangrene (principal); L97.414 Non-pressure chronic ulcer of right heel and midfoot with necrosis of bone; L97.329 Non-pressure chronic ulcer of left ankle with unspecified severity; E11.622 Type 2 diabetes mellitus with other skin ulcer; Z79.4 Long term (current) use of insulin; E66.9 Obesity, unspecified; Z68.34 Body mass index [BMI] 34.0-34.9, adult
CPT/HCPCS: 36415; 36430; 80048; 80053; 80202; 82565; 82947; 85025; 85027; 86850; 86900; 86901; 86923; 87071; 87075; 87076; 87077; 87185; 87186; 87205; 88307; 88311; 97110; 97162; 97166; A9270-GY; C9113; J0690; J1170; J1644; J1940; J2405; J2543; J2704; J2765; J3010; J3370; J7030; J7050; J7120; P9016

== ENCOUNTER 2019-05-07 00:19 | Day surgery (SDC) | payer MEDICARE, OTHER, SELFPAY | END 2019-05-07 23:04 | disposition home or self-care (01) | LOC: WOUND 00:19 | DX: E11.621 Type 2 diabetes mellitus with foot ulcer (principal); E11.622 Type 2 diabetes mellitus with other skin ulcer; E11.51 Type 2 diabetes mellitus with diabetic peripheral angiopathy without gangrene; L97.415 Non-pressure chronic ulcer of right heel and midfoot with muscle involvement without evidence of necrosis; L97.815 Non-pressure chronic ulcer of other part of right lower leg with muscle involvement without evidence of necrosis; I10 Essential (primary) hypertension; I87.2 Venous insufficiency (chronic) (peripheral); I70.25 Atherosclerosis of native arteries of other extremities with ulceration; Z89.512 Acquired absence of left leg below knee; Z95.0 Presence of cardiac pacemaker; Z79.899 Other long term (current) drug therapy; Z79.4 Long term (current) use of insulin ==

== ENCOUNTER 2019-05-12 00:16 | Day surgery (SDC) | payer MEDICARE, OTHER, SELFPAY ==
--- NOTE | 2019-05-12 11:39 | NUR ---
MINIMAL BLEEDING T.O. PROCEDURE, PT TOW. UNABLE TO MOVE PICC LINE PAST SHOULDER AREA, ATTEMPTED TO MOVE PT HEAD AND ARM AROUND TO GET PICC LINE DOWN INTO THE CAJ, HOWEVER UNSUCCESSFUL. ABLE TO GET LINE IN WITH 25 CM OUT WITH POSITIVE BLOOD DRAW BACK, HIGHLIGHTED P WAVES DURING INSERTION. FLUSHES WELL, PT DENIES ANY DISCOMFORT. ORDER IS FOR ROCEPHIN PER NOTES FROM NURSING FACILITY, WHICH ALLOWS FOR LONG ARM. WILL NOTIFY NURSING FACILITY RN.
== END 2019-05-12 12:25 | disposition home or self-care (01) ==
LOC: ATC 00:16
DX: Z45.2 Encounter for adjustment and management of vascular access device (principal); I10 Essential (primary) hypertension; E11.42 Type 2 diabetes mellitus with diabetic polyneuropathy; I48.20 Chronic atrial fibrillation, unspecified; M15.0 Primary generalized (osteo)arthritis; D64.9 Anemia, unspecified; E66.9 Obesity, unspecified; E87.1 Hypo-osmolality and hyponatremia; I25.10 Atherosclerotic heart disease of native coronary artery without angina pectoris; I45.5 Other specified heart block; Z95.0 Presence of cardiac pacemaker
CPT/HCPCS: 36569; C1751

== ENCOUNTER 2019-05-14 00:41 | Day surgery (SDC) | payer MEDICARE, OTHER, SELFPAY | END 2019-05-14 22:44 | disposition home or self-care (01) | LOC: WOUND 00:41 | DX: E11.621 Type 2 diabetes mellitus with foot ulcer (principal); L97.415 Non-pressure chronic ulcer of right heel and midfoot with muscle involvement without evidence of necrosis; E11.51 Type 2 diabetes mellitus with diabetic peripheral angiopathy without gangrene; L97.815 Non-pressure chronic ulcer of other part of right lower leg with muscle involvement without evidence of necrosis; I87.2 Venous insufficiency (chronic) (peripheral); I10 Essential (primary) hypertension; I70.25 Atherosclerosis of native arteries of other extremities with ulceration; Z89.512 Acquired absence of left leg below knee; Z79.899 Other long term (current) drug therapy; Z79.4 Long term (current) use of insulin ==

== ENCOUNTER 2019-05-14 08:40 | Day surgery (SDC) | payer MEDICARE, OTHER, SELFPAY ==
--- NOTE | 2019-05-14 10:56 | NUR ---
ORDER NOTED AND ON CHART. ATTEMPT TO PLACE CATHFLO @ 0958 WHILE PT WAS IN WOUND APPT. NOT ABLE TO INSTILL. PER PRINCE Molina PHARMACIST CATHFLO CAN BE KEPT RECONSTITUTED IN [place]ID[place] FOR 8 HRS. LABLED/INITIALED AND PLACED IN [place] TILL AFTER PT WOUND CARE APPT FINISHED. END CAP CHANGED AND TAPED/LABEL PLACED.
== END 2019-05-14 12:45 | disposition home or self-care (01) ==
LOC: ATC 08:40
DX: E11.42 Type 2 diabetes mellitus with diabetic polyneuropathy (principal); I48.20 Chronic atrial fibrillation, unspecified; M15.0 Primary generalized (osteo)arthritis; D64.9 Anemia, unspecified; E66.9 Obesity, unspecified; I10 Essential (primary) hypertension; E11.51 Type 2 diabetes mellitus with diabetic peripheral angiopathy without gangrene; E87.1 Hypo-osmolality and hyponatremia; I25.10 Atherosclerotic heart disease of native coronary artery without angina pectoris; Z95.0 Presence of cardiac pacemaker; Z79.4 Long term (current) use of insulin; Z79.899 Other long term (current) drug therapy; Z88.2 Allergy status to sulfonamides; Z88.8 Allergy status to other drugs, medicaments and biological substances; Z91.048 Other nonmedicinal substance allergy status; Z91.041 Radiographic dye allergy status
CPT/HCPCS: 99211; C1751; J2997

== ENCOUNTER 2019-05-21 00:20 | Day surgery (SDC) | payer MEDICARE, OTHER, SELFPAY | END 2019-05-21 23:03 | disposition home or self-care (01) | LOC: WOUND 00:20 | DX: E11.621 Type 2 diabetes mellitus with foot ulcer (principal); E11.622 Type 2 diabetes mellitus with other skin ulcer; E11.51 Type 2 diabetes mellitus with diabetic peripheral angiopathy without gangrene; I70.25 Atherosclerosis of native arteries of other extremities with ulceration; L97.412 Non-pressure chronic ulcer of right heel and midfoot with fat layer exposed; L97.812 Non-pressure chronic ulcer of other part of right lower leg with fat layer exposed; I10 Essential (primary) hypertension; I87.2 Venous insufficiency (chronic) (peripheral); Z89.512 Acquired absence of left leg below knee ==

== ENCOUNTER 2019-05-28 00:11 | Day surgery (SDC) | payer MEDICARE, OTHER, SELFPAY | END 2019-05-28 22:54 | disposition home or self-care (01) | LOC: WOUND 00:11 | DX: E11.621 Type 2 diabetes mellitus with foot ulcer (principal); L97.515 Non-pressure chronic ulcer of other part of right foot with muscle involvement without evidence of necrosis; E11.52 Type 2 diabetes mellitus with diabetic peripheral angiopathy with gangrene; I96 Gangrene, not elsewhere classified; E11.65 Type 2 diabetes mellitus with hyperglycemia; I10 Essential (primary) hypertension; I87.2 Venous insufficiency (chronic) (peripheral); I70.25 Atherosclerosis of native arteries of other extremities with ulceration; M19.90 Unspecified osteoarthritis, unspecified site; Z95.0 Presence of cardiac pacemaker; Z88.2 Allergy status to sulfonamides; Z91.041 Radiographic dye allergy status; Z91.048 Other nonmedicinal substance allergy status; Z79.4 Long term (current) use of insulin; Z79.899 Other long term (current) drug therapy; Z89.512 Acquired absence of left leg below knee ==

== ENCOUNTER 2019-06-04 00:22 | Day surgery (SDC) | payer MEDICARE, OTHER, SELFPAY | END 2019-06-04 22:38 | disposition home or self-care (01) | LOC: WOUND 00:22 | DX: E11.622 Type 2 diabetes mellitus with other skin ulcer (principal); E11.621 Type 2 diabetes mellitus with foot ulcer; E11.51 Type 2 diabetes mellitus with diabetic peripheral angiopathy without gangrene; I44.2 Atrioventricular block, complete; L97.415 Non-pressure chronic ulcer of right heel and midfoot with muscle involvement without evidence of necrosis; L97.815 Non-pressure chronic ulcer of other part of right lower leg with muscle involvement without evidence of necrosis; I87.2 Venous insufficiency (chronic) (peripheral); I70.25 Atherosclerosis of native arteries of other extremities with ulceration; Z89.512 Acquired absence of left leg below knee; Z95.0 Presence of cardiac pacemaker; Z79.4 Long term (current) use of insulin; Z79.899 Other long term (current) drug therapy ==

== ENCOUNTER 2019-06-04 13:43 | Day surgery (SDC) | payer MEDICARE, OTHER, SELFPAY ==
--- NOTE | 2019-06-04 15:36 | NUR ---
ORDERS CLARIFIED AND PER ZAK HAWTHORNE FROG SHAKER ANA DOWN TO CLINIC TO DC LINE @ NECK. UPON CLOSER ASSESSMENT, NOTED OPSITE TO L SIDE OF NECK AND NOT ABLE TO VISUALIZE CANNULA. UPON TAKING OFF A SMALL PINK PIECE OF TAPE ( LESS THAN 1 CM ) IT WAS NOTED BY THIS RN AND ANA RN THAT THE CANNULA WAS WAS TAPED DOWN TO THE OUTSIDE OF THE OPSITE. OPSITE REMOVED AND CHLORAPREP TO CLEANSE AREA. SMALL RED BUMP PALPATED AND BANDAID PLACED OVER PREVIOUS IV SITE. PT TEACHING, VERBALIZES UNDERSTANDING.
== END 2019-06-04 14:30 | disposition home or self-care (01) ==
LOC: ATC 13:43
DX: Z45.2 Encounter for adjustment and management of vascular access device (principal); I10 Essential (primary) hypertension; I25.10 Atherosclerotic heart disease of native coronary artery without angina pectoris; E11.42 Type 2 diabetes mellitus with diabetic polyneuropathy; I48.20 Chronic atrial fibrillation, unspecified; M15.0 Primary generalized (osteo)arthritis; E66.9 Obesity, unspecified; I45.5 Other specified heart block; Z95.0 Presence of cardiac pacemaker; Z88.2 Allergy status to sulfonamides; Z88.8 Allergy status to other drugs, medicaments and biological substances; Z91.041 Radiographic dye allergy status; Z91.048 Other nonmedicinal substance allergy status
CPT/HCPCS: 99211

== ENCOUNTER 2019-06-18 09:00 | Day surgery (SDC) | payer MEDICARE, OTHER, SELFPAY | END 2019-06-18 23:03 | disposition home or self-care (01) | LOC: WOUND 09:00 | DX: E11.621 Type 2 diabetes mellitus with foot ulcer (principal); L97.512 Non-pressure chronic ulcer of other part of right foot with fat layer exposed; L89.613 Pressure ulcer of right heel, stage 3; E11.52 Type 2 diabetes mellitus with diabetic peripheral angiopathy with gangrene; I96 Gangrene, not elsewhere classified; E11.51 Type 2 diabetes mellitus with diabetic peripheral angiopathy without gangrene; I10 Essential (primary) hypertension; I87.2 Venous insufficiency (chronic) (peripheral); I70.25 Atherosclerosis of native arteries of other extremities with ulceration; Z88.2 Allergy status to sulfonamides; Z88.8 Allergy status to other drugs, medicaments and biological substances; Z91.041 Radiographic dye allergy status; Z91.048 Other nonmedicinal substance allergy status; Z95.0 Presence of cardiac pacemaker; Z89.512 Acquired absence of left leg below knee; Z79.4 Long term (current) use of insulin; Z79.899 Other long term (current) drug therapy | CPT/HCPCS: Q4133 ==

== ENCOUNTER 2019-06-25 08:25 | Day surgery (SDC) | payer MEDICARE, OTHER, SELFPAY | END 2019-06-25 23:50 | disposition home or self-care (01) | LOC: WOUND 08:25 | DX: E11.621 Type 2 diabetes mellitus with foot ulcer (principal); L97.415 Non-pressure chronic ulcer of right heel and midfoot with muscle involvement without evidence of necrosis; E11.622 Type 2 diabetes mellitus with other skin ulcer; I44.2 Atrioventricular block, complete; I10 Essential (primary) hypertension; E11.51 Type 2 diabetes mellitus with diabetic peripheral angiopathy without gangrene; L97.815 Non-pressure chronic ulcer of other part of right lower leg with muscle involvement without evidence of necrosis; I87.2 Venous insufficiency (chronic) (peripheral); I70.25 Atherosclerosis of native arteries of other extremities with ulceration; Z89.512 Acquired absence of left leg below knee; Z95.0 Presence of cardiac pacemaker; Z79.899 Other long term (current) drug therapy; Z79.4 Long term (current) use of insulin | CPT/HCPCS: 87071; 87075; 87077; 87147; 87186; 87205; Q4133 ==

== ENCOUNTER 2019-07-02 08:19 | Day surgery (SDC) | payer MEDICARE, OTHER, SELFPAY | END 2019-07-02 22:49 | disposition home or self-care (01) | LOC: WOUND 08:19 | DX: E11.621 Type 2 diabetes mellitus with foot ulcer (principal); E11.622 Type 2 diabetes mellitus with other skin ulcer; L97.415 Non-pressure chronic ulcer of right heel and midfoot with muscle involvement without evidence of necrosis; L97.815 Non-pressure chronic ulcer of other part of right lower leg with muscle involvement without evidence of necrosis; E11.51 Type 2 diabetes mellitus with diabetic peripheral angiopathy without gangrene; I10 Essential (primary) hypertension; I70.25 Atherosclerosis of native arteries of other extremities with ulceration; I87.2 Venous insufficiency (chronic) (peripheral); Z89.512 Acquired absence of left leg below knee; Z95.0 Presence of cardiac pacemaker; Z79.4 Long term (current) use of insulin; Z79.899 Other long term (current) drug therapy | CPT/HCPCS: Q4133 ==

== ENCOUNTER 2019-07-17 00:28 | Day surgery (SDC) | payer MEDICARE, OTHER, SELFPAY | END 2019-07-17 23:23 | disposition home or self-care (01) | LOC: WOUND 00:28 | DX: I96 Gangrene, not elsewhere classified (principal); L89.613 Pressure ulcer of right heel, stage 3; E11.621 Type 2 diabetes mellitus with foot ulcer; L98.491 Non-pressure chronic ulcer of skin of other sites limited to breakdown of skin; I87.2 Venous insufficiency (chronic) (peripheral); I70.25 Atherosclerosis of native arteries of other extremities with ulceration; E11.52 Type 2 diabetes mellitus with diabetic peripheral angiopathy with gangrene; I10 Essential (primary) hypertension; M19.90 Unspecified osteoarthritis, unspecified site; I44.2 Atrioventricular block, complete; Z89.512 Acquired absence of left leg below knee; Z95.0 Presence of cardiac pacemaker; Z88.2 Allergy status to sulfonamides; Z88.8 Allergy status to other drugs, medicaments and biological substances; Z91.041 Radiographic dye allergy status; Z91.048 Other nonmedicinal substance allergy status; Z79.4 Long term (current) use of insulin; Z79.899 Other long term (current) drug therapy ==

== ENCOUNTER 2019-07-30 00:21 | Day surgery (SDC) | payer MEDICARE, OTHER, SELFPAY | END 2019-07-30 22:46 | disposition home or self-care (01) | LOC: WOUND 00:21 | DX: I96 Gangrene, not elsewhere classified (principal); L89.894 Pressure ulcer of other site, stage 4; E11.621 Type 2 diabetes mellitus with foot ulcer; L97.511 Non-pressure chronic ulcer of other part of right foot limited to breakdown of skin; E11.52 Type 2 diabetes mellitus with diabetic peripheral angiopathy with gangrene; E11.622 Type 2 diabetes mellitus with other skin ulcer; L97.811 Non-pressure chronic ulcer of other part of right lower leg limited to breakdown of skin; L02.611 Cutaneous abscess of right foot; I87.2 Venous insufficiency (chronic) (peripheral); I70.25 Atherosclerosis of native arteries of other extremities with ulceration; Z79.4 Long term (current) use of insulin; Z79.899 Other long term (current) drug therapy; Z89.512 Acquired absence of left leg below knee; Z88.1 Allergy status to other antibiotic agents; Z88.2 Allergy status to sulfonamides; Z88.8 Allergy status to other drugs, medicaments and biological substances; Z91.041 Radiographic dye allergy status; Z91.048 Other nonmedicinal substance allergy status; Z95.0 Presence of cardiac pacemaker | CPT/HCPCS: 87070; 87077; 87147; 87186; 87205; G0463 ==

== ENCOUNTER 2019-08-13 00:14 | Day surgery (SDC) | payer MEDICARE, OTHER | END 2019-08-13 22:55 | disposition home or self-care (01) | LOC: WOUND 00:14 | DX: E11.621 Type 2 diabetes mellitus with foot ulcer (principal); L97.415 Non-pressure chronic ulcer of right heel and midfoot with muscle involvement without evidence of necrosis; L97.512 Non-pressure chronic ulcer of other part of right foot with fat layer exposed; E11.622 Type 2 diabetes mellitus with other skin ulcer; L97.815 Non-pressure chronic ulcer of other part of right lower leg with muscle involvement without evidence of necrosis; I44.2 Atrioventricular block, complete; E11.51 Type 2 diabetes mellitus with diabetic peripheral angiopathy without gangrene; I87.2 Venous insufficiency (chronic) (peripheral); I10 Essential (primary) hypertension; Z89.512 Acquired absence of left leg below knee; Z95.0 Presence of cardiac pacemaker ==

== ENCOUNTER 2019-08-27 00:17 | Day surgery (SDC) | payer MEDICARE, OTHER | END 2019-08-27 22:56 | disposition home or self-care (01) | LOC: WOUND 00:17 | DX: E11.621 Type 2 diabetes mellitus with foot ulcer (principal); E11.622 Type 2 diabetes mellitus with other skin ulcer; L97.415 Non-pressure chronic ulcer of right heel and midfoot with muscle involvement without evidence of necrosis; L97.815 Non-pressure chronic ulcer of other part of right lower leg with muscle involvement without evidence of necrosis; I87.2 Venous insufficiency (chronic) (peripheral); I70.25 Atherosclerosis of native arteries of other extremities with ulceration; Z89.512 Acquired absence of left leg below knee; Z95.0 Presence of cardiac pacemaker; Z79.4 Long term (current) use of insulin; Z79.899 Other long term (current) drug therapy ==

== ENCOUNTER 2019-09-05 00:28 | Day surgery (SDC) | payer MEDICARE, OTHER | END 2019-09-05 23:49 | disposition home or self-care (01) | LOC: WOUND 00:28 | DX: E11.621 Type 2 diabetes mellitus with foot ulcer (principal); L97.415 Non-pressure chronic ulcer of right heel and midfoot with muscle involvement without evidence of necrosis; L97.815 Non-pressure chronic ulcer of other part of right lower leg with muscle involvement without evidence of necrosis; L97.512 Non-pressure chronic ulcer of other part of right foot with fat layer exposed; I87.2 Venous insufficiency (chronic) (peripheral); I70.25 Atherosclerosis of native arteries of other extremities with ulceration; Z89.512 Acquired absence of left leg below knee; Z95.0 Presence of cardiac pacemaker; Z79.899 Other long term (current) drug therapy; Z79.4 Long term (current) use of insulin | CPT/HCPCS: 87070; 87071; 87075; 87077; 87147; 87186; 87205 ==

== ENCOUNTER → 2019-09-10 | Outpatient (CLI) | payer MEDICARE, OTHER | END | disposition home or self-care (01) | LOC: LAB UVN 06:55 → EDSTATUS 13:37 → LAB UVN 13:38 | DX: E11.42 Type 2 diabetes mellitus with diabetic polyneuropathy (principal) | CPT/HCPCS: 36415; 83036 ==

== ENCOUNTER 2019-09-12 14:00 | Day surgery (SDC) | payer MEDICARE, OTHER | END 2019-09-17 22:51 | disposition home or self-care (01) | LOC: WOUND 14:00 | DX: E11.621 Type 2 diabetes mellitus with foot ulcer (principal); L97.415 Non-pressure chronic ulcer of right heel and midfoot with muscle involvement without evidence of necrosis; L97.815 Non-pressure chronic ulcer of other part of right lower leg with muscle involvement without evidence of necrosis; L97.512 Non-pressure chronic ulcer of other part of right foot with fat layer exposed; L89.323 Pressure ulcer of left buttock, stage 3; I87.2 Venous insufficiency (chronic) (peripheral); I70.25 Atherosclerosis of native arteries of other extremities with ulceration; Z95.0 Presence of cardiac pacemaker; Z89.512 Acquired absence of left leg below knee ==

== ENCOUNTER → 2019-09-18 | Outpatient (CLI) | payer MEDICARE, OTHER ==
[2019-09-18 10:17] LABS: Albumin, Blood 2.7 g/dL (3.4-5.0); Prealbumin, Blood 18.6 mg/dL (20.0-40.0)
== END | disposition home or self-care (01) ==
LOC: LAB UVN 08:08 → EDSTATUS 13:10 → LAB UVN 13:11
PROVIDERS: Family Medicine
DX: E11.42 Type 2 diabetes mellitus with diabetic polyneuropathy (principal)
CPT/HCPCS: 36415; 82040; 84134

== ENCOUNTER 2019-09-19 01:32 | Day surgery (SDC) | payer MEDICARE, OTHER | END 2019-09-19 23:23 | disposition home or self-care (01) | LOC: WOUND 01:32 | DX: E11.621 Type 2 diabetes mellitus with foot ulcer (principal); L97.415 Non-pressure chronic ulcer of right heel and midfoot with muscle involvement without evidence of necrosis; L97.815 Non-pressure chronic ulcer of other part of right lower leg with muscle involvement without evidence of necrosis; L97.512 Non-pressure chronic ulcer of other part of right foot with fat layer exposed; L89.323 Pressure ulcer of left buttock, stage 3; I87.2 Venous insufficiency (chronic) (peripheral); I10 Essential (primary) hypertension; I70.25 Atherosclerosis of native arteries of other extremities with ulceration; Z89.512 Acquired absence of left leg below knee; Z95.0 Presence of cardiac pacemaker; Z79.899 Other long term (current) drug therapy; Z79.4 Long term (current) use of insulin ==

== ENCOUNTER → 2019-09-21 | Outpatient (CLI) | payer MEDICARE, OTHER ==
[2019-09-21 18:36] LABS: Adenovirus Not Detected (NOT DETECT); Bordetella pertussis Not Detected (NOT DETECT); Chlamydophila pneumoniae Not Detected (NOT DETECT); Coronavirus 229E Not Detected (NOT DETECT); Coronavirus HKU1 Not Detected (NOT DETECT); Coronavirus NL63 Not Detected (NOT DETECT); Coronavirus OC43 Not Detected (NOT DETECT); Human Metapneumovirus Detected (NOT DETECT); Human Rhinovirus/Enterovirus Not Detected (NOT DETECT); Influenza A/2009-H1 Not Detected (NOT DETECT); Influenza A/H1 Not Detected (NOT DETECT); Influenza A/H3 Not Detected (NOT DETECT); Influenza B Not Detected (NOT DETECT); Mycoplasma pneumoniae Not Detected (NOT DETECT); Parainfluenza Virus 1 Not Detected (NOT DETECT); Parainfluenza Virus 2 Not Detected (NOT DETECT); Parainfluenza Virus 3 Not Detected (NOT DETECT); Parainfluenza Virus 4 Not Detected (NOT DETECT); Respiratory Syncytial Virus Not Detected (NOT DETECT)
== END ==
LOC: EDSTATUS 13:11 → LAB UVN 16:00
PROVIDERS: Family Medicine
DX: I73.9 Peripheral vascular disease, unspecified (principal); J10.1 Influenza due to other identified influenza virus with other respiratory manifestations
CPT/HCPCS: 0099U

== ENCOUNTER → 2019-09-22 | Outpatient (CLI) | payer MEDICARE, OTHER ==
[2019-09-22 13:26] LABS: Hematocrit 29.1 % (33.0-51.0); Hemoglobin 9.3 g/dL (11.5-16.0); Mean Corpuscular HGB 26.7 pg (26.0-34.0); Mean Corpuscular Volume 84 fL (80-100); Platelet Count 303 K/mm3 (150-400); RDW Coefficient Variation 16.1 % (11.7-14.2); RDW Standard Deviation 49.1 fL (35.1-46.3); Red Blood Cell Count 3.48 M/mm3 (3.80-5.20); White Blood Cell Count 5.39 K/mm3 (4.00-11.30)
[2019-09-22 13:49] LABS: Bun/Creatinine Ratio 48.1 (12.0-20.0); Calcium, Blood 8.4 mg/dL (8.5-10.1); Creatinine, Blood 1.33 mg/dL (0.40-1.00); Potassium, Blood 5.2 mmol/L (3.5-5.5)
== END | disposition home or self-care (01) ==
LOC: LAB UVN 12:25 → EDSTATUS 13:12
PROVIDERS: Nurse Practitioner Family
DX: I73.9 Peripheral vascular disease, unspecified (principal); J98.4 Other disorders of lung
CPT/HCPCS: 80048; 85027

== ENCOUNTER → 2019-09-25 | Outpatient (CLI) | payer MEDICARE, OTHER ==
[2019-09-25 08:26] LABS: Hemoglobin 9.2 g/dL (11.5-16.0); Mean Corpuscular HGB 26.4 pg (26.0-34.0); Mean Corpuscular HGB Conc 31.7 g/dL (31.5-36.5); Mean Corpuscular Volume 83 fL (80-100); Mean Platelet Volume 9.9 fL (9.1-12.4); Platelet Count 310 K/mm3 (150-400); RDW Coefficient Variation 15.9 % (11.7-14.2); RDW Standard Deviation 48.7 fL (35.1-46.3); Red Blood Cell Count 3.48 M/mm3 (3.80-5.20); White Blood Cell Count 5.64 K/mm3 (4.00-11.30)
[2019-09-25 08:44] LABS: Anion Gap 3 mmol/L (6-16); Blood Urea Nitrogen 29 mg/dL (8-24); Bun/Creatinine Ratio 44.1 (12.0-20.0); CO2, Blood 26 mmol/L (21-32); Calcium, Blood 8.8 mg/dL (8.5-10.1); Chloride, Blood 102 mmol/L (98-108); Creatinine, Blood 0.66 mg/dL (0.40-1.00); Glomerular Filtration Rate >60 (60-); Glucose, Blood 79 mg/dL (70-99); Potassium, Blood 5.1 mmol/L (3.5-5.5); Sodium, Blood 131 mmol/L (136-145)
== END ==
LOC: LAB UVN 07:51 → EDSTATUS 13:14
PROVIDERS: Family Medicine
DX: E11.42 Type 2 diabetes mellitus with diabetic polyneuropathy (principal)
CPT/HCPCS: 36415; 80048; 85027

== ENCOUNTER → 2019-10-02 | Outpatient (CLI) | payer MEDICARE, OTHER ==
[2019-10-02 11:30] LABS: Anion Gap 4 mmol/L (6-16); Blood Urea Nitrogen 34 mg/dL (8-24); Bun/Creatinine Ratio 54.8 (12.0-20.0); CO2, Blood 28 mmol/L (21-32); Calcium, Blood 9.6 mg/dL (8.5-10.1); Chloride, Blood 103 mmol/L (98-108); Creatinine, Blood 0.62 mg/dL (0.40-1.00); Glomerular Filtration Rate >60 (60-); Glucose, Blood 91 mg/dL (70-99); Potassium, Blood 4.6 mmol/L (3.5-5.5); Sodium, Blood 135 mmol/L (136-145)
== END | disposition home or self-care (01) ==
LOC: LAB UVN 08:33 → EDSTATUS 13:01
PROVIDERS: Family Medicine
DX: E11.42 Type 2 diabetes mellitus with diabetic polyneuropathy (principal)
CPT/HCPCS: 36415; 80048

== ENCOUNTER 2019-10-07 08:36 | Day surgery (SDC) | payer MEDICARE, OTHER | END 2019-10-07 22:48 | disposition home or self-care (01) | LOC: HBO 08:36 | DX: E11.621 Type 2 diabetes mellitus with foot ulcer (principal); L97.415 Non-pressure chronic ulcer of right heel and midfoot with muscle involvement without evidence of necrosis; L97.815 Non-pressure chronic ulcer of other part of right lower leg with muscle involvement without evidence of necrosis; L97.512 Non-pressure chronic ulcer of other part of right foot with fat layer exposed; L89.323 Pressure ulcer of left buttock, stage 3; Z89.512 Acquired absence of left leg below knee; Z95.0 Presence of cardiac pacemaker; I87.2 Venous insufficiency (chronic) (peripheral); I70.25 Atherosclerosis of native arteries of other extremities with ulceration; Z79.899 Other long term (current) drug therapy; Z79.4 Long term (current) use of insulin | CPT/HCPCS: 82947; G0277 ==

== ENCOUNTER 2019-10-08 00:25 | Day surgery (SDC) | payer MEDICARE, OTHER | END 2019-10-08 22:45 | disposition home or self-care (01) | LOC: HBO 00:25 | DX: E11.621 Type 2 diabetes mellitus with foot ulcer (principal); L97.415 Non-pressure chronic ulcer of right heel and midfoot with muscle involvement without evidence of necrosis; L97.815 Non-pressure chronic ulcer of other part of right lower leg with muscle involvement without evidence of necrosis; L89.323 Pressure ulcer of left buttock, stage 3; I87.2 Venous insufficiency (chronic) (peripheral); Z95.0 Presence of cardiac pacemaker; I70.25 Atherosclerosis of native arteries of other extremities with ulceration; Z79.4 Long term (current) use of insulin | CPT/HCPCS: 82947; G0277 ==

== ENCOUNTER 2019-10-09 00:22 | Day surgery (SDC) | payer MEDICARE, OTHER | END 2019-10-09 23:45 | disposition home or self-care (01) | LOC: HBO 00:22 | DX: E11.621 Type 2 diabetes mellitus with foot ulcer (principal); L97.415 Non-pressure chronic ulcer of right heel and midfoot with muscle involvement without evidence of necrosis; L97.815 Non-pressure chronic ulcer of other part of right lower leg with muscle involvement without evidence of necrosis; L97.512 Non-pressure chronic ulcer of other part of right foot with fat layer exposed; L89.323 Pressure ulcer of left buttock, stage 3; I87.2 Venous insufficiency (chronic) (peripheral); I70.25 Atherosclerosis of native arteries of other extremities with ulceration; Z89.512 Acquired absence of left leg below knee; Z95.0 Presence of cardiac pacemaker; Z79.4 Long term (current) use of insulin | CPT/HCPCS: 82947; G0277 ==

== ENCOUNTER 2019-10-10 00:38 | Day surgery (SDC) | payer MEDICARE, OTHER | END 2019-10-10 22:40 | disposition home or self-care (01) | LOC: WOUND 00:38 | DX: E11.621 Type 2 diabetes mellitus with foot ulcer (principal); E11.51 Type 2 diabetes mellitus with diabetic peripheral angiopathy without gangrene; L97.415 Non-pressure chronic ulcer of right heel and midfoot with muscle involvement without evidence of necrosis; L97.512 Non-pressure chronic ulcer of other part of right foot with fat layer exposed; L89.323 Pressure ulcer of left buttock, stage 3; I87.2 Venous insufficiency (chronic) (peripheral); I10 Essential (primary) hypertension; I70.25 Atherosclerosis of native arteries of other extremities with ulceration; Z89.512 Acquired absence of left leg below knee; Z95.0 Presence of cardiac pacemaker; Z79.899 Other long term (current) drug therapy; Z79.4 Long term (current) use of insulin ==

== ENCOUNTER 2019-10-13 00:46 | Day surgery (SDC) | payer MEDICARE, OTHER | END 2019-10-13 22:39 | disposition home or self-care (01) | LOC: HBO 00:46 | DX: E11.621 Type 2 diabetes mellitus with foot ulcer (principal); L97.415 Non-pressure chronic ulcer of right heel and midfoot with muscle involvement without evidence of necrosis; L97.512 Non-pressure chronic ulcer of other part of right foot with fat layer exposed; I70.25 Atherosclerosis of native arteries of other extremities with ulceration; I87.2 Venous insufficiency (chronic) (peripheral); L89.323 Pressure ulcer of left buttock, stage 3; Z79.4 Long term (current) use of insulin; Z79.899 Other long term (current) drug therapy; Z89.512 Acquired absence of left leg below knee; Z95.0 Presence of cardiac pacemaker | CPT/HCPCS: 82947; G0277 ==

== ENCOUNTER 2019-10-14 00:07 | Day surgery (SDC) | payer MEDICARE, OTHER | END 2019-10-14 22:49 | disposition home or self-care (01) | LOC: HBO 00:07 | DX: E11.621 Type 2 diabetes mellitus with foot ulcer (principal); L97.415 Non-pressure chronic ulcer of right heel and midfoot with muscle involvement without evidence of necrosis; L97.512 Non-pressure chronic ulcer of other part of right foot with fat layer exposed; L89.323 Pressure ulcer of left buttock, stage 3; Z89.512 Acquired absence of left leg below knee; Z95.0 Presence of cardiac pacemaker; I87.2 Venous insufficiency (chronic) (peripheral); I70.25 Atherosclerosis of native arteries of other extremities with ulceration; Z79.4 Long term (current) use of insulin | CPT/HCPCS: 82947; G0277 ==

== ENCOUNTER 2019-10-15 00:26 | Day surgery (SDC) | payer MEDICARE, OTHER | END 2019-10-15 22:39 | disposition home or self-care (01) | LOC: HBO 00:26 | DX: E11.621 Type 2 diabetes mellitus with foot ulcer (principal); L97.415 Non-pressure chronic ulcer of right heel and midfoot with muscle involvement without evidence of necrosis; L97.512 Non-pressure chronic ulcer of other part of right foot with fat layer exposed; L89.323 Pressure ulcer of left buttock, stage 3; I87.2 Venous insufficiency (chronic) (peripheral); I70.25 Atherosclerosis of native arteries of other extremities with ulceration; Z79.899 Other long term (current) drug therapy; Z79.4 Long term (current) use of insulin; Z89.512 Acquired absence of left leg below knee; Z95.0 Presence of cardiac pacemaker | CPT/HCPCS: 82947; G0277 ==

== ENCOUNTER 2019-10-16 00:22 | Day surgery (SDC) | payer MEDICARE, OTHER | END 2019-10-16 23:52 | disposition home or self-care (01) | LOC: HBO 00:22 | DX: E11.621 Type 2 diabetes mellitus with foot ulcer (principal); L97.415 Non-pressure chronic ulcer of right heel and midfoot with muscle involvement without evidence of necrosis; L97.512 Non-pressure chronic ulcer of other part of right foot with fat layer exposed; L89.323 Pressure ulcer of left buttock, stage 3; Z89.512 Acquired absence of left leg below knee; Z95.0 Presence of cardiac pacemaker; I87.2 Venous insufficiency (chronic) (peripheral); I70.25 Atherosclerosis of native arteries of other extremities with ulceration; Z79.4 Long term (current) use of insulin; Z79.899 Other long term (current) drug therapy | CPT/HCPCS: 82947; G0277 ==

== ENCOUNTER 2019-10-17 01:10 | Day surgery (SDC) | payer MEDICARE, OTHER | END 2019-10-17 23:01 | disposition home or self-care (01) | LOC: HBO 01:10 | DX: E11.621 Type 2 diabetes mellitus with foot ulcer (principal); L97.415 Non-pressure chronic ulcer of right heel and midfoot with muscle involvement without evidence of necrosis; L97.512 Non-pressure chronic ulcer of other part of right foot with fat layer exposed; E11.622 Type 2 diabetes mellitus with other skin ulcer; L97.822 Non-pressure chronic ulcer of other part of left lower leg with fat layer exposed; E11.51 Type 2 diabetes mellitus with diabetic peripheral angiopathy without gangrene; I70.25 Atherosclerosis of native arteries of other extremities with ulceration; I87.2 Venous insufficiency (chronic) (peripheral); L89.323 Pressure ulcer of left buttock, stage 3; L89.512 Pressure ulcer of right ankle, stage 2; R60.1 Generalized edema; S81.802D Unspecified open wound, left lower leg, subsequent encounter; Z79.4 Long term (current) use of insulin; Z79.899 Other long term (current) drug therapy; Z95.0 Presence of cardiac pacemaker | CPT/HCPCS: 82947; G0277 ==

== ENCOUNTER 2019-10-20 00:12 | Day surgery (SDC) | payer MEDICARE, OTHER | END 2019-10-20 23:08 | disposition home or self-care (01) | LOC: HBO 00:12 | DX: E11.621 Type 2 diabetes mellitus with foot ulcer (principal); L97.415 Non-pressure chronic ulcer of right heel and midfoot with muscle involvement without evidence of necrosis; L97.512 Non-pressure chronic ulcer of other part of right foot with fat layer exposed; L89.323 Pressure ulcer of left buttock, stage 3; Z89.512 Acquired absence of left leg below knee; Z95.0 Presence of cardiac pacemaker; I87.2 Venous insufficiency (chronic) (peripheral); I70.25 Atherosclerosis of native arteries of other extremities with ulceration; Z79.4 Long term (current) use of insulin; Z79.899 Other long term (current) drug therapy | CPT/HCPCS: 82947; G0277 ==

== ENCOUNTER 2019-10-21 00:37 | Day surgery (SDC) | payer MEDICARE, OTHER | END 2019-10-21 22:50 | disposition home or self-care (01) | LOC: HBO 00:37 | DX: E11.621 Type 2 diabetes mellitus with foot ulcer (principal); L97.415 Non-pressure chronic ulcer of right heel and midfoot with muscle involvement without evidence of necrosis; L97.512 Non-pressure chronic ulcer of other part of right foot with fat layer exposed; E11.51 Type 2 diabetes mellitus with diabetic peripheral angiopathy without gangrene; I70.25 Atherosclerosis of native arteries of other extremities with ulceration; L89.323 Pressure ulcer of left buttock, stage 3; I87.2 Venous insufficiency (chronic) (peripheral); Z89.512 Acquired absence of left leg below knee; Z95.0 Presence of cardiac pacemaker | CPT/HCPCS: 82947; G0277 ==

== ENCOUNTER 2019-10-23 00:50 | Day surgery (SDC) | payer MEDICARE, OTHER | END 2019-10-23 22:55 | disposition home or self-care (01) | LOC: HBO 00:50 | DX: E11.621 Type 2 diabetes mellitus with foot ulcer (principal); L97.415 Non-pressure chronic ulcer of right heel and midfoot with muscle involvement without evidence of necrosis; L97.512 Non-pressure chronic ulcer of other part of right foot with fat layer exposed; L89.323 Pressure ulcer of left buttock, stage 3; Z89.512 Acquired absence of left leg below knee; Z95.0 Presence of cardiac pacemaker; I87.2 Venous insufficiency (chronic) (peripheral); I70.25 Atherosclerosis of native arteries of other extremities with ulceration; Z79.4 Long term (current) use of insulin; Z79.899 Other long term (current) drug therapy | CPT/HCPCS: 82947; G0277 ==

== ENCOUNTER 2019-10-24 00:14 | Day surgery (SDC) | payer MEDICARE, OTHER | END 2019-10-24 22:37 | disposition home or self-care (01) | LOC: HBO 00:14 | DX: E11.621 Type 2 diabetes mellitus with foot ulcer (principal); L97.415 Non-pressure chronic ulcer of right heel and midfoot with muscle involvement without evidence of necrosis; L97.512 Non-pressure chronic ulcer of other part of right foot with fat layer exposed; E11.51 Type 2 diabetes mellitus with diabetic peripheral angiopathy without gangrene; I87.2 Venous insufficiency (chronic) (peripheral); I70.25 Atherosclerosis of native arteries of other extremities with ulceration; L89.323 Pressure ulcer of left buttock, stage 3; Z79.4 Long term (current) use of insulin; Z79.899 Other long term (current) drug therapy; Z89.512 Acquired absence of left leg below knee; Z95.0 Presence of cardiac pacemaker | CPT/HCPCS: G0463 ==

== ENCOUNTER 2019-10-27 01:18 | Day surgery (SDC) | payer MEDICARE, OTHER | END 2019-10-27 22:54 | disposition home or self-care (01) | LOC: HBO 01:18 | DX: E11.621 Type 2 diabetes mellitus with foot ulcer (principal); L97.415 Non-pressure chronic ulcer of right heel and midfoot with muscle involvement without evidence of necrosis; L97.516 Non-pressure chronic ulcer of other part of right foot with bone involvement without evidence of necrosis; S91.204D Unspecified open wound of right lesser toe(s) with damage to nail, subsequent encounter; Z89.512 Acquired absence of left leg below knee; Z95.0 Presence of cardiac pacemaker; I87.2 Venous insufficiency (chronic) (peripheral); I70.25 Atherosclerosis of native arteries of other extremities with ulceration; Z79.899 Other long term (current) drug therapy; Z79.4 Long term (current) use of insulin | CPT/HCPCS: 82947; G0277 ==

== ENCOUNTER 2019-10-28 00:05 | Day surgery (SDC) | payer MEDICARE, OTHER | END 2019-10-28 22:56 | disposition home or self-care (01) | LOC: HBO 00:05 | DX: E11.621 Type 2 diabetes mellitus with foot ulcer (principal); L97.415 Non-pressure chronic ulcer of right heel and midfoot with muscle involvement without evidence of necrosis; L97.516 Non-pressure chronic ulcer of other part of right foot with bone involvement without evidence of necrosis; S91.204A Unspecified open wound of right lesser toe(s) with damage to nail, initial encounter; Z89.512 Acquired absence of left leg below knee; X58.XXXA Exposure to other specified factors, initial encounter; I87.2 Venous insufficiency (chronic) (peripheral); I70.25 Atherosclerosis of native arteries of other extremities with ulceration; Z79.899 Other long term (current) drug therapy; Z79.4 Long term (current) use of insulin | CPT/HCPCS: 82947; G0277 ==

== ENCOUNTER 2019-10-29 00:25 | Day surgery (SDC) | payer MEDICARE, OTHER | END 2019-10-29 22:40 | disposition home or self-care (01) | LOC: HBO 00:25 | DX: E11.621 Type 2 diabetes mellitus with foot ulcer (principal); L97.415 Non-pressure chronic ulcer of right heel and midfoot with muscle involvement without evidence of necrosis; L97.516 Non-pressure chronic ulcer of other part of right foot with bone involvement without evidence of necrosis; S91.204D Unspecified open wound of right lesser toe(s) with damage to nail, subsequent encounter; I87.2 Venous insufficiency (chronic) (peripheral); I70.25 Atherosclerosis of native arteries of other extremities with ulceration; Z79.899 Other long term (current) drug therapy; Z89.512 Acquired absence of left leg below knee; Z95.0 Presence of cardiac pacemaker; Z79.4 Long term (current) use of insulin | CPT/HCPCS: 82947; G0277 ==

== ENCOUNTER 2019-10-30 08:31 | Day surgery (SDC) | payer MEDICARE, OTHER | END 2019-10-30 22:44 | disposition home or self-care (01) | LOC: HBO 08:31 | DX: E11.621 Type 2 diabetes mellitus with foot ulcer (principal); L97.415 Non-pressure chronic ulcer of right heel and midfoot with muscle involvement without evidence of necrosis; L97.516 Non-pressure chronic ulcer of other part of right foot with bone involvement without evidence of necrosis; S91.204A Unspecified open wound of right lesser toe(s) with damage to nail, initial encounter; I87.2 Venous insufficiency (chronic) (peripheral); I70.25 Atherosclerosis of native arteries of other extremities with ulceration; Z89.512 Acquired absence of left leg below knee; Z95.0 Presence of cardiac pacemaker | CPT/HCPCS: 82947; G0277 ==

== ENCOUNTER 2019-10-31 00:19 | Day surgery (SDC) | payer MEDICARE, OTHER | END 2019-10-31 22:59 | disposition home or self-care (01) | LOC: HBO 00:19 → WOUND 13:48 → HBO 13:50 | DX: E11.621 Type 2 diabetes mellitus with foot ulcer (principal); L97.415 Non-pressure chronic ulcer of right heel and midfoot with muscle involvement without evidence of necrosis; L97.516 Non-pressure chronic ulcer of other part of right foot with bone involvement without evidence of necrosis; S91.204D Unspecified open wound of right lesser toe(s) with damage to nail, subsequent encounter; Z89.512 Acquired absence of left leg below knee; Z95.0 Presence of cardiac pacemaker; I87.2 Venous insufficiency (chronic) (peripheral); I70.25 Atherosclerosis of native arteries of other extremities with ulceration; Z79.899 Other long term (current) drug therapy; Z79.4 Long term (current) use of insulin | CPT/HCPCS: 82947; G0277 ==

== ENCOUNTER 2019-11-03 00:13 | Day surgery (SDC) | payer MEDICARE, OTHER | END 2019-11-03 22:48 | disposition home or self-care (01) | LOC: HBO 00:13 | DX: E11.621 Type 2 diabetes mellitus with foot ulcer (principal); L97.415 Non-pressure chronic ulcer of right heel and midfoot with muscle involvement without evidence of necrosis; L97.516 Non-pressure chronic ulcer of other part of right foot with bone involvement without evidence of necrosis; S91.204D Unspecified open wound of right lesser toe(s) with damage to nail, subsequent encounter; Z89.512 Acquired absence of left leg below knee; Z95.0 Presence of cardiac pacemaker; I87.2 Venous insufficiency (chronic) (peripheral); I70.25 Atherosclerosis of native arteries of other extremities with ulceration; Z79.899 Other long term (current) drug therapy; Z79.4 Long term (current) use of insulin | CPT/HCPCS: 82947; G0277 ==

== ENCOUNTER 2019-11-04 00:21 | Day surgery (SDC) | payer MEDICARE, OTHER | END 2019-11-04 22:51 | disposition home or self-care (01) | LOC: HBO 00:21 | DX: E11.621 Type 2 diabetes mellitus with foot ulcer (principal); L97.415 Non-pressure chronic ulcer of right heel and midfoot with muscle involvement without evidence of necrosis; L97.516 Non-pressure chronic ulcer of other part of right foot with bone involvement without evidence of necrosis; S91.204A Unspecified open wound of right lesser toe(s) with damage to nail, initial encounter; I87.2 Venous insufficiency (chronic) (peripheral); E11.51 Type 2 diabetes mellitus with diabetic peripheral angiopathy without gangrene; I70.25 Atherosclerosis of native arteries of other extremities with ulceration; E11.622 Type 2 diabetes mellitus with other skin ulcer; L97.822 Non-pressure chronic ulcer of other part of left lower leg with fat layer exposed; R60.1 Generalized edema; Z89.512 Acquired absence of left leg below knee; Z95.0 Presence of cardiac pacemaker | CPT/HCPCS: 82947; G0277 ==

== ENCOUNTER 2019-11-06 00:15 | Day surgery (SDC) | payer MEDICARE, OTHER | END 2019-11-06 22:47 | disposition home or self-care (01) | LOC: WOUND 00:15 | DX: E11.621 Type 2 diabetes mellitus with foot ulcer (principal); L97.512 Non-pressure chronic ulcer of other part of right foot with fat layer exposed; L97.415 Non-pressure chronic ulcer of right heel and midfoot with muscle involvement without evidence of necrosis; S91.204A Unspecified open wound of right lesser toe(s) with damage to nail, initial encounter; E11.51 Type 2 diabetes mellitus with diabetic peripheral angiopathy without gangrene; I70.25 Atherosclerosis of native arteries of other extremities with ulceration; I87.2 Venous insufficiency (chronic) (peripheral); Z95.0 Presence of cardiac pacemaker; Z89.512 Acquired absence of left leg below knee; Z79.899 Other long term (current) drug therapy; Z79.4 Long term (current) use of insulin; X58.XXXA Exposure to other specified factors, initial encounter ==

== ENCOUNTER 2019-11-06 00:17 | Day surgery (SDC) | payer MEDICARE, OTHER | END 2019-11-06 22:47 | disposition home or self-care (01) | LOC: HBO 00:17 | DX: E11.621 Type 2 diabetes mellitus with foot ulcer (principal); L97.415 Non-pressure chronic ulcer of right heel and midfoot with muscle involvement without evidence of necrosis; L97.516 Non-pressure chronic ulcer of other part of right foot with bone involvement without evidence of necrosis; S91.204D Unspecified open wound of right lesser toe(s) with damage to nail, subsequent encounter; Z89.512 Acquired absence of left leg below knee; Z95.0 Presence of cardiac pacemaker; I87.2 Venous insufficiency (chronic) (peripheral); I70.25 Atherosclerosis of native arteries of other extremities with ulceration; Z79.4 Long term (current) use of insulin | CPT/HCPCS: 82947; G0277 ==

== ENCOUNTER 2019-11-07 00:43 | Day surgery (SDC) | payer MEDICARE, OTHER | END 2019-11-07 23:12 | disposition home or self-care (01) | LOC: HBO 00:43 | DX: E11.621 Type 2 diabetes mellitus with foot ulcer (principal); L97.415 Non-pressure chronic ulcer of right heel and midfoot with muscle involvement without evidence of necrosis; L97.516 Non-pressure chronic ulcer of other part of right foot with bone involvement without evidence of necrosis; Z89.512 Acquired absence of left leg below knee; Z95.0 Presence of cardiac pacemaker; I87.2 Venous insufficiency (chronic) (peripheral); I70.25 Atherosclerosis of native arteries of other extremities with ulceration; Z79.4 Long term (current) use of insulin | CPT/HCPCS: 82947; G0277 ==

== ENCOUNTER 2019-11-10 00:11 | Day surgery (SDC) | payer MEDICARE, OTHER | END 2019-11-10 22:58 | disposition home or self-care (01) | LOC: HBO 00:11 | DX: E11.621 Type 2 diabetes mellitus with foot ulcer (principal); L97.415 Non-pressure chronic ulcer of right heel and midfoot with muscle involvement without evidence of necrosis; L97.516 Non-pressure chronic ulcer of other part of right foot with bone involvement without evidence of necrosis; Z89.512 Acquired absence of left leg below knee; Z95.0 Presence of cardiac pacemaker; I87.2 Venous insufficiency (chronic) (peripheral); I70.25 Atherosclerosis of native arteries of other extremities with ulceration; Z79.4 Long term (current) use of insulin | CPT/HCPCS: 82947; G0277 ==

== ENCOUNTER 2019-11-11 00:30 | Day surgery (SDC) | payer MEDICARE, OTHER | END 2019-11-11 22:38 | disposition home or self-care (01) | LOC: HBO 00:30 | DX: E11.621 Type 2 diabetes mellitus with foot ulcer (principal); L97.415 Non-pressure chronic ulcer of right heel and midfoot with muscle involvement without evidence of necrosis; L97.516 Non-pressure chronic ulcer of other part of right foot with bone involvement without evidence of necrosis; I87.2 Venous insufficiency (chronic) (peripheral); I70.25 Atherosclerosis of native arteries of other extremities with ulceration; Z89.512 Acquired absence of left leg below knee; Z95.0 Presence of cardiac pacemaker; Z79.4 Long term (current) use of insulin; Z79.899 Other long term (current) drug therapy | CPT/HCPCS: 82947; G0277 ==

== ENCOUNTER 2019-11-12 00:20 | Day surgery (SDC) | payer MEDICARE, OTHER | END 2019-11-12 22:57 | disposition home or self-care (01) | LOC: HBO 00:20 | DX: E11.621 Type 2 diabetes mellitus with foot ulcer (principal); L97.415 Non-pressure chronic ulcer of right heel and midfoot with muscle involvement without evidence of necrosis; L97.516 Non-pressure chronic ulcer of other part of right foot with bone involvement without evidence of necrosis; Z89.512 Acquired absence of left leg below knee; Z95.0 Presence of cardiac pacemaker; I87.2 Venous insufficiency (chronic) (peripheral); I70.25 Atherosclerosis of native arteries of other extremities with ulceration; Z79.4 Long term (current) use of insulin | CPT/HCPCS: 82947; G0277 ==

== ENCOUNTER 2019-11-13 00:09 | Day surgery (SDC) | payer MEDICARE, OTHER | END 2019-11-13 22:42 | disposition home or self-care (01) | LOC: WOUND 00:09 | DX: E11.621 Type 2 diabetes mellitus with foot ulcer (principal); L97.415 Non-pressure chronic ulcer of right heel and midfoot with muscle involvement without evidence of necrosis; L97.516 Non-pressure chronic ulcer of other part of right foot with bone involvement without evidence of necrosis; I87.2 Venous insufficiency (chronic) (peripheral); E11.51 Type 2 diabetes mellitus with diabetic peripheral angiopathy without gangrene; I70.25 Atherosclerosis of native arteries of other extremities with ulceration; Z89.512 Acquired absence of left leg below knee; Z95.0 Presence of cardiac pacemaker; Z79.4 Long term (current) use of insulin; Z79.899 Other long term (current) drug therapy ==

== ENCOUNTER 2019-11-13 00:10 | Day surgery (SDC) | payer MEDICARE, OTHER | END 2019-11-13 22:43 | disposition home or self-care (01) | LOC: HBO 00:10 | DX: E11.621 Type 2 diabetes mellitus with foot ulcer (principal); L97.415 Non-pressure chronic ulcer of right heel and midfoot with muscle involvement without evidence of necrosis; L97.516 Non-pressure chronic ulcer of other part of right foot with bone involvement without evidence of necrosis; Z89.512 Acquired absence of left leg below knee; I87.2 Venous insufficiency (chronic) (peripheral); I70.25 Atherosclerosis of native arteries of other extremities with ulceration; Z79.4 Long term (current) use of insulin | CPT/HCPCS: 82947; G0277 ==

== ENCOUNTER 2019-11-14 00:20 | Day surgery (SDC) | payer MEDICARE, OTHER | END 2019-11-14 22:41 | disposition home or self-care (01) | LOC: HBO 00:20 | DX: E11.621 Type 2 diabetes mellitus with foot ulcer (principal); L97.415 Non-pressure chronic ulcer of right heel and midfoot with muscle involvement without evidence of necrosis; L97.516 Non-pressure chronic ulcer of other part of right foot with bone involvement without evidence of necrosis; E11.51 Type 2 diabetes mellitus with diabetic peripheral angiopathy without gangrene; I70.25 Atherosclerosis of native arteries of other extremities with ulceration; I87.2 Venous insufficiency (chronic) (peripheral); Z89.512 Acquired absence of left leg below knee; Z95.0 Presence of cardiac pacemaker; Z79.4 Long term (current) use of insulin; Z79.899 Other long term (current) drug therapy | CPT/HCPCS: 82947; G0277 ==

== ENCOUNTER 2019-11-17 00:25 | Day surgery (SDC) | payer MEDICARE, OTHER | END 2019-11-17 22:44 | disposition home or self-care (01) | LOC: HBO 00:25 | DX: E11.621 Type 2 diabetes mellitus with foot ulcer (principal); L97.415 Non-pressure chronic ulcer of right heel and midfoot with muscle involvement without evidence of necrosis; L97.516 Non-pressure chronic ulcer of other part of right foot with bone involvement without evidence of necrosis; Z89.512 Acquired absence of left leg below knee; Z95.0 Presence of cardiac pacemaker; I87.2 Venous insufficiency (chronic) (peripheral); I70.25 Atherosclerosis of native arteries of other extremities with ulceration; Z79.4 Long term (current) use of insulin | CPT/HCPCS: 82947; G0277 ==

== ENCOUNTER 2019-11-18 00:11 | Day surgery (SDC) | payer MEDICARE, OTHER | END 2019-11-18 22:37 | disposition home or self-care (01) | LOC: HBO 00:11 | DX: E11.621 Type 2 diabetes mellitus with foot ulcer (principal); L97.415 Non-pressure chronic ulcer of right heel and midfoot with muscle involvement without evidence of necrosis; L97.516 Non-pressure chronic ulcer of other part of right foot with bone involvement without evidence of necrosis; Z89.512 Acquired absence of left leg below knee; Z95.0 Presence of cardiac pacemaker; I87.2 Venous insufficiency (chronic) (peripheral); I70.25 Atherosclerosis of native arteries of other extremities with ulceration; Z79.4 Long term (current) use of insulin | CPT/HCPCS: 82947; G0277 ==

== ENCOUNTER 2019-11-20 00:15 | Day surgery (SDC) | payer MEDICARE, OTHER | END 2019-11-20 23:05 | disposition home or self-care (01) | LOC: WOUND 00:15 | DX: E11.621 Type 2 diabetes mellitus with foot ulcer (principal); L97.415 Non-pressure chronic ulcer of right heel and midfoot with muscle involvement without evidence of necrosis; L97.516 Non-pressure chronic ulcer of other part of right foot with bone involvement without evidence of necrosis; Z89.512 Acquired absence of left leg below knee; Z95.0 Presence of cardiac pacemaker; I87.2 Venous insufficiency (chronic) (peripheral); I70.25 Atherosclerosis of native arteries of other extremities with ulceration; Z79.4 Long term (current) use of insulin ==

== ENCOUNTER 2019-11-20 00:16 | Day surgery (SDC) | payer MEDICARE, OTHER | END 2019-11-20 23:05 | disposition home or self-care (01) | LOC: HBO 00:16 | DX: E11.621 Type 2 diabetes mellitus with foot ulcer (principal); L97.415 Non-pressure chronic ulcer of right heel and midfoot with muscle involvement without evidence of necrosis; L97.516 Non-pressure chronic ulcer of other part of right foot with bone involvement without evidence of necrosis; Z89.512 Acquired absence of left leg below knee; Z95.0 Presence of cardiac pacemaker; I87.2 Venous insufficiency (chronic) (peripheral); Z79.4 Long term (current) use of insulin | CPT/HCPCS: 82947; G0277 ==

== ENCOUNTER → 2019-11-20 | Outpatient (CLI) | payer MEDICARE, OTHER ==
[2019-11-20 13:54] LABS: Albumin, Blood 2.9 g/dL (3.4-5.0); Prealbumin, Blood 26.4 mg/dL (20.0-40.0)
== END | disposition home or self-care (01) ==
LOC: EDSTATUS 10:18 → LAB UVN 12:49
PROVIDERS: Family Medicine
DX: I73.9 Peripheral vascular disease, unspecified (principal)
CPT/HCPCS: 82040; 84134

== ENCOUNTER 2019-11-21 00:23 | Day surgery (SDC) | payer MEDICARE, OTHER | END 2019-11-21 22:57 | disposition home or self-care (01) | LOC: HBO 00:23 | DX: E11.621 Type 2 diabetes mellitus with foot ulcer (principal); L97.415 Non-pressure chronic ulcer of right heel and midfoot with muscle involvement without evidence of necrosis; L97.516 Non-pressure chronic ulcer of other part of right foot with bone involvement without evidence of necrosis; I87.2 Venous insufficiency (chronic) (peripheral); I70.25 Atherosclerosis of native arteries of other extremities with ulceration; Z89.512 Acquired absence of left leg below knee; Z95.0 Presence of cardiac pacemaker; Z79.4 Long term (current) use of insulin; Z79.899 Other long term (current) drug therapy | CPT/HCPCS: 82947; G0277 ==

== ENCOUNTER 2019-11-24 00:27 | Day surgery (SDC) | payer MEDICARE, OTHER | END 2019-11-24 22:46 | disposition home or self-care (01) | LOC: HBO 00:27 | DX: E11.621 Type 2 diabetes mellitus with foot ulcer (principal); L97.415 Non-pressure chronic ulcer of right heel and midfoot with muscle involvement without evidence of necrosis; L97.516 Non-pressure chronic ulcer of other part of right foot with bone involvement without evidence of necrosis; I87.2 Venous insufficiency (chronic) (peripheral); I70.25 Atherosclerosis of native arteries of other extremities with ulceration; Z95.0 Presence of cardiac pacemaker; Z89.512 Acquired absence of left leg below knee; Z79.4 Long term (current) use of insulin; Z79.899 Other long term (current) drug therapy | CPT/HCPCS: 82947; G0277 ==

== ENCOUNTER 2019-11-25 00:24 | Day surgery (SDC) | payer MEDICARE, OTHER | END 2019-11-25 22:46 | disposition home or self-care (01) | LOC: HBO 00:24 | DX: E11.621 Type 2 diabetes mellitus with foot ulcer (principal); L97.415 Non-pressure chronic ulcer of right heel and midfoot with muscle involvement without evidence of necrosis; L97.516 Non-pressure chronic ulcer of other part of right foot with bone involvement without evidence of necrosis; I87.2 Venous insufficiency (chronic) (peripheral); I70.25 Atherosclerosis of native arteries of other extremities with ulceration; Z89.512 Acquired absence of left leg below knee; Z95.0 Presence of cardiac pacemaker; Z79.4 Long term (current) use of insulin; Z79.899 Other long term (current) drug therapy | CPT/HCPCS: 82947; G0277 ==

== ENCOUNTER 2019-11-26 00:21 | Day surgery (SDC) | payer MEDICARE, OTHER | END 2019-11-26 22:45 | disposition home or self-care (01) | LOC: HBO 00:21 | DX: E11.621 Type 2 diabetes mellitus with foot ulcer (principal); L97.415 Non-pressure chronic ulcer of right heel and midfoot with muscle involvement without evidence of necrosis; L97.516 Non-pressure chronic ulcer of other part of right foot with bone involvement without evidence of necrosis; I70.25 Atherosclerosis of native arteries of other extremities with ulceration; I87.2 Venous insufficiency (chronic) (peripheral); Z89.512 Acquired absence of left leg below knee | CPT/HCPCS: 82947; G0277 ==

== ENCOUNTER 2019-11-27 00:14 | Day surgery (SDC) | payer MEDICARE, OTHER | END 2019-11-27 23:50 | disposition home or self-care (01) | LOC: HBO 00:14 | DX: E11.621 Type 2 diabetes mellitus with foot ulcer (principal); L97.415 Non-pressure chronic ulcer of right heel and midfoot with muscle involvement without evidence of necrosis; L97.516 Non-pressure chronic ulcer of other part of right foot with bone involvement without evidence of necrosis; Z89.512 Acquired absence of left leg below knee; Z95.0 Presence of cardiac pacemaker; I87.2 Venous insufficiency (chronic) (peripheral); I70.25 Atherosclerosis of native arteries of other extremities with ulceration; Z79.4 Long term (current) use of insulin; Z79.899 Other long term (current) drug therapy | CPT/HCPCS: 82947; G0277 ==

== ENCOUNTER 2019-11-27 00:17 | Day surgery (SDC) | payer MEDICARE, OTHER | END 2019-11-27 23:50 | disposition home or self-care (01) | LOC: WOUND 00:17 | DX: E11.621 Type 2 diabetes mellitus with foot ulcer (principal); L97.415 Non-pressure chronic ulcer of right heel and midfoot with muscle involvement without evidence of necrosis; L97.516 Non-pressure chronic ulcer of other part of right foot with bone involvement without evidence of necrosis; I87.2 Venous insufficiency (chronic) (peripheral); I70.25 Atherosclerosis of native arteries of other extremities with ulceration; Z89.512 Acquired absence of left leg below knee; Z95.0 Presence of cardiac pacemaker; Z79.4 Long term (current) use of insulin ==

== ENCOUNTER 2019-11-28 00:28 | Day surgery (SDC) | payer MEDICARE, OTHER | END 2019-11-28 23:14 | disposition home or self-care (01) | LOC: HBO 00:28 | DX: E11.621 Type 2 diabetes mellitus with foot ulcer (principal); L97.415 Non-pressure chronic ulcer of right heel and midfoot with muscle involvement without evidence of necrosis; L97.516 Non-pressure chronic ulcer of other part of right foot with bone involvement without evidence of necrosis; I87.2 Venous insufficiency (chronic) (peripheral); I70.25 Atherosclerosis of native arteries of other extremities with ulceration; Z89.512 Acquired absence of left leg below knee; Z95.0 Presence of cardiac pacemaker; Z79.899 Other long term (current) drug therapy; Z79.4 Long term (current) use of insulin | CPT/HCPCS: 82947; G0277 ==

== ENCOUNTER 2019-12-01 01:03 | Day surgery (SDC) | payer MEDICARE, OTHER | END 2019-12-01 22:43 | disposition home or self-care (01) | LOC: HBO 01:03 | DX: E11.621 Type 2 diabetes mellitus with foot ulcer (principal); L97.415 Non-pressure chronic ulcer of right heel and midfoot with muscle involvement without evidence of necrosis; L97.516 Non-pressure chronic ulcer of other part of right foot with bone involvement without evidence of necrosis; I70.25 Atherosclerosis of native arteries of other extremities with ulceration; Z79.4 Long term (current) use of insulin; Z89.512 Acquired absence of left leg below knee | CPT/HCPCS: 82947; G0277 ==

== ENCOUNTER 2019-12-03 00:19 | Day surgery (SDC) | payer MEDICARE, OTHER | END 2019-12-03 22:44 | disposition home or self-care (01) | LOC: HBO 00:19 | DX: E11.621 Type 2 diabetes mellitus with foot ulcer (principal); L97.415 Non-pressure chronic ulcer of right heel and midfoot with muscle involvement without evidence of necrosis; L97.516 Non-pressure chronic ulcer of other part of right foot with bone involvement without evidence of necrosis; Z89.512 Acquired absence of left leg below knee; Z95.0 Presence of cardiac pacemaker; I87.2 Venous insufficiency (chronic) (peripheral); I70.25 Atherosclerosis of native arteries of other extremities with ulceration; Z79.4 Long term (current) use of insulin; Z79.899 Other long term (current) drug therapy | CPT/HCPCS: 82947; G0277 ==

== ENCOUNTER → 2019-12-03 | Outpatient (CLI) | payer MEDICARE, OTHER | END | disposition home or self-care (01) | LOC: LAB UVN 04:00 → EDSTATUS 11:04 | DX: E11.42 Type 2 diabetes mellitus with diabetic polyneuropathy (principal) | CPT/HCPCS: 83036 ==

== ENCOUNTER 2019-12-04 00:14 | Day surgery (SDC) | payer MEDICARE, OTHER | END 2019-12-04 23:23 | disposition home or self-care (01) | LOC: HBO 00:14 | DX: E11.621 Type 2 diabetes mellitus with foot ulcer (principal); L97.415 Non-pressure chronic ulcer of right heel and midfoot with muscle involvement without evidence of necrosis; L97.516 Non-pressure chronic ulcer of other part of right foot with bone involvement without evidence of necrosis; I87.2 Venous insufficiency (chronic) (peripheral); I70.25 Atherosclerosis of native arteries of other extremities with ulceration; Z89.512 Acquired absence of left leg below knee; Z95.0 Presence of cardiac pacemaker; Z79.899 Other long term (current) drug therapy | CPT/HCPCS: 82947; G0277 ==

== ENCOUNTER 2019-12-05 00:27 | Day surgery (SDC) | payer MEDICARE, OTHER | END 2019-12-05 23:09 | disposition home or self-care (01) | LOC: HBO 00:27 | DX: E11.621 Type 2 diabetes mellitus with foot ulcer (principal); L97.415 Non-pressure chronic ulcer of right heel and midfoot with muscle involvement without evidence of necrosis; L97.516 Non-pressure chronic ulcer of other part of right foot with bone involvement without evidence of necrosis; I87.2 Venous insufficiency (chronic) (peripheral); I70.25 Atherosclerosis of native arteries of other extremities with ulceration; Z89.512 Acquired absence of left leg below knee; Z95.0 Presence of cardiac pacemaker | CPT/HCPCS: 82947; G0277 ==

== ENCOUNTER 2019-12-09 00:07 | Day surgery (SDC) | payer MEDICARE, OTHER | END 2019-12-09 22:52 | disposition home or self-care (01) | LOC: HBO 00:07 | DX: E11.621 Type 2 diabetes mellitus with foot ulcer (principal); L97.415 Non-pressure chronic ulcer of right heel and midfoot with muscle involvement without evidence of necrosis; L97.516 Non-pressure chronic ulcer of other part of right foot with bone involvement without evidence of necrosis; Z89.512 Acquired absence of left leg below knee; Z95.0 Presence of cardiac pacemaker; I87.2 Venous insufficiency (chronic) (peripheral); I70.25 Atherosclerosis of native arteries of other extremities with ulceration; Z79.899 Other long term (current) drug therapy; Z79.4 Long term (current) use of insulin | CPT/HCPCS: 82947; G0277 ==

== ENCOUNTER 2019-12-10 00:17 | Day surgery (SDC) | payer MEDICARE, OTHER | END 2019-12-10 22:54 | disposition home or self-care (01) | LOC: HBO 00:17 | DX: E11.621 Type 2 diabetes mellitus with foot ulcer (principal); L97.415 Non-pressure chronic ulcer of right heel and midfoot with muscle involvement without evidence of necrosis; L97.516 Non-pressure chronic ulcer of other part of right foot with bone involvement without evidence of necrosis; I87.2 Venous insufficiency (chronic) (peripheral); I70.25 Atherosclerosis of native arteries of other extremities with ulceration; Z89.512 Acquired absence of left leg below knee; Z95.0 Presence of cardiac pacemaker; Z79.4 Long term (current) use of insulin; Z79.899 Other long term (current) drug therapy | CPT/HCPCS: 82947; G0277 ==

== ENCOUNTER 2019-12-11 00:18 | Day surgery (SDC) | payer MEDICARE, OTHER | END 2019-12-11 22:50 | disposition home or self-care (01) | LOC: HBO 00:18 | DX: E11.621 Type 2 diabetes mellitus with foot ulcer (principal); L97.415 Non-pressure chronic ulcer of right heel and midfoot with muscle involvement without evidence of necrosis; L97.516 Non-pressure chronic ulcer of other part of right foot with bone involvement without evidence of necrosis; I87.2 Venous insufficiency (chronic) (peripheral); I70.25 Atherosclerosis of native arteries of other extremities with ulceration; Z89.512 Acquired absence of left leg below knee; Z95.0 Presence of cardiac pacemaker; Z79.4 Long term (current) use of insulin | CPT/HCPCS: 82947; G0277 ==

== ENCOUNTER 2019-12-11 00:23 | Day surgery (SDC) | payer MEDICARE, OTHER | END 2019-12-11 22:50 | disposition home or self-care (01) | LOC: WOUND 00:23 → HBO 13:53 → WOUND 14:08 | DX: E11.621 Type 2 diabetes mellitus with foot ulcer (principal); L97.415 Non-pressure chronic ulcer of right heel and midfoot with muscle involvement without evidence of necrosis; L97.516 Non-pressure chronic ulcer of other part of right foot with bone involvement without evidence of necrosis; I70.25 Atherosclerosis of native arteries of other extremities with ulceration; I10 Essential (primary) hypertension; E11.51 Type 2 diabetes mellitus with diabetic peripheral angiopathy without gangrene; Z79.899 Other long term (current) drug therapy; Z89.512 Acquired absence of left leg below knee; Z79.4 Long term (current) use of insulin ==

== ENCOUNTER 2019-12-12 00:35 | Day surgery (SDC) | payer MEDICARE, OTHER | END 2019-12-12 23:17 | disposition home or self-care (01) | LOC: HBO 00:35 | DX: E11.621 Type 2 diabetes mellitus with foot ulcer (principal); L97.415 Non-pressure chronic ulcer of right heel and midfoot with muscle involvement without evidence of necrosis; L97.516 Non-pressure chronic ulcer of other part of right foot with bone involvement without evidence of necrosis; Z89.512 Acquired absence of left leg below knee; Z95.0 Presence of cardiac pacemaker; I87.2 Venous insufficiency (chronic) (peripheral); I70.25 Atherosclerosis of native arteries of other extremities with ulceration | CPT/HCPCS: 82947; G0277 ==

== ENCOUNTER 2019-12-16 00:32 | Day surgery (SDC) | payer MEDICARE, OTHER | END 2019-12-16 22:59 | disposition home or self-care (01) | LOC: HBO 00:32 | DX: E11.621 Type 2 diabetes mellitus with foot ulcer (principal); L97.415 Non-pressure chronic ulcer of right heel and midfoot with muscle involvement without evidence of necrosis; L97.516 Non-pressure chronic ulcer of other part of right foot with bone involvement without evidence of necrosis; Z89.512 Acquired absence of left leg below knee; Z95.0 Presence of cardiac pacemaker; I87.2 Venous insufficiency (chronic) (peripheral); I70.25 Atherosclerosis of native arteries of other extremities with ulceration; Z79.4 Long term (current) use of insulin | CPT/HCPCS: 82947; G0277 ==

== ENCOUNTER 2019-12-17 00:16 | Day surgery (SDC) | payer MEDICARE, OTHER | END 2019-12-17 22:49 | disposition home or self-care (01) | LOC: HBO 00:16 | DX: E11.621 Type 2 diabetes mellitus with foot ulcer (principal); L97.415 Non-pressure chronic ulcer of right heel and midfoot with muscle involvement without evidence of necrosis; L97.516 Non-pressure chronic ulcer of other part of right foot with bone involvement without evidence of necrosis; Z89.512 Acquired absence of left leg below knee; Z95.0 Presence of cardiac pacemaker; I87.2 Venous insufficiency (chronic) (peripheral); I70.25 Atherosclerosis of native arteries of other extremities with ulceration; Z79.899 Other long term (current) drug therapy; Z79.4 Long term (current) use of insulin | CPT/HCPCS: 82947; G0277 ==

== ENCOUNTER 2019-12-18 00:19 | Day surgery (SDC) | payer MEDICARE, OTHER | END 2019-12-18 23:20 | disposition home or self-care (01) | LOC: WOUND 00:19 | DX: E11.621 Type 2 diabetes mellitus with foot ulcer (principal); L97.415 Non-pressure chronic ulcer of right heel and midfoot with muscle involvement without evidence of necrosis; L97.516 Non-pressure chronic ulcer of other part of right foot with bone involvement without evidence of necrosis; I70.25 Atherosclerosis of native arteries of other extremities with ulceration; E11.51 Type 2 diabetes mellitus with diabetic peripheral angiopathy without gangrene; I10 Essential (primary) hypertension; Z89.512 Acquired absence of left leg below knee; Z95.0 Presence of cardiac pacemaker; Z79.4 Long term (current) use of insulin; Z79.899 Other long term (current) drug therapy | CPT/HCPCS: Q4133 ==

== ENCOUNTER 2019-12-18 00:22 | Day surgery (SDC) | payer MEDICARE, OTHER | END 2019-12-18 23:20 | disposition home or self-care (01) | LOC: HBO 00:22 | DX: E11.621 Type 2 diabetes mellitus with foot ulcer (principal); L97.415 Non-pressure chronic ulcer of right heel and midfoot with muscle involvement without evidence of necrosis; L97.516 Non-pressure chronic ulcer of other part of right foot with bone involvement without evidence of necrosis; Z89.512 Acquired absence of left leg below knee; Z95.0 Presence of cardiac pacemaker; I87.2 Venous insufficiency (chronic) (peripheral); I70.25 Atherosclerosis of native arteries of other extremities with ulceration; Z79.899 Other long term (current) drug therapy; Z79.4 Long term (current) use of insulin | CPT/HCPCS: 82947; G0277 ==

== ENCOUNTER 2019-12-19 00:43 | Day surgery (SDC) | payer MEDICARE, OTHER | END 2019-12-19 23:24 | disposition home or self-care (01) | LOC: HBO 00:43 | DX: E11.621 Type 2 diabetes mellitus with foot ulcer (principal); L97.415 Non-pressure chronic ulcer of right heel and midfoot with muscle involvement without evidence of necrosis; L97.516 Non-pressure chronic ulcer of other part of right foot with bone involvement without evidence of necrosis; Z89.512 Acquired absence of left leg below knee; Z95.0 Presence of cardiac pacemaker; I87.2 Venous insufficiency (chronic) (peripheral); I70.25 Atherosclerosis of native arteries of other extremities with ulceration | CPT/HCPCS: 82947; G0277 ==

== ENCOUNTER 2019-12-22 00:40 | Day surgery (SDC) | payer MEDICARE, OTHER | END 2019-12-22 23:13 | disposition home or self-care (01) | LOC: HBO 00:40 | DX: E11.621 Type 2 diabetes mellitus with foot ulcer (principal); L97.415 Non-pressure chronic ulcer of right heel and midfoot with muscle involvement without evidence of necrosis; L97.516 Non-pressure chronic ulcer of other part of right foot with bone involvement without evidence of necrosis; I87.2 Venous insufficiency (chronic) (peripheral); I70.25 Atherosclerosis of native arteries of other extremities with ulceration; Z89.512 Acquired absence of left leg below knee; Z95.0 Presence of cardiac pacemaker | CPT/HCPCS: 82947; G0277 ==

== ENCOUNTER 2019-12-22 08:51 | Day surgery (SDC) | payer MEDICARE, OTHER | END 2019-12-22 23:13 | disposition home or self-care (01) | LOC: WOUND 08:51 | DX: E11.621 Type 2 diabetes mellitus with foot ulcer (principal); L97.415 Non-pressure chronic ulcer of right heel and midfoot with muscle involvement without evidence of necrosis; L97.516 Non-pressure chronic ulcer of other part of right foot with bone involvement without evidence of necrosis; I87.2 Venous insufficiency (chronic) (peripheral); I70.25 Atherosclerosis of native arteries of other extremities with ulceration; Z89.512 Acquired absence of left leg below knee; Z95.0 Presence of cardiac pacemaker | CPT/HCPCS: G0463 ==

== ENCOUNTER 2019-12-23 00:14 | Day surgery (SDC) | payer MEDICARE, OTHER | END 2019-12-23 23:03 | disposition home or self-care (01) | LOC: HBO 00:14 | DX: E11.621 Type 2 diabetes mellitus with foot ulcer (principal); L97.415 Non-pressure chronic ulcer of right heel and midfoot with muscle involvement without evidence of necrosis; L97.516 Non-pressure chronic ulcer of other part of right foot with bone involvement without evidence of necrosis; Z89.512 Acquired absence of left leg below knee; Z95.0 Presence of cardiac pacemaker; I87.2 Venous insufficiency (chronic) (peripheral); I70.25 Atherosclerosis of native arteries of other extremities with ulceration | CPT/HCPCS: 82947; G0277 ==

== ENCOUNTER 2019-12-24 00:42 | Day surgery (SDC) | payer MEDICARE, OTHER | END 2019-12-24 23:14 | disposition home or self-care (01) | LOC: HBO 00:42 | DX: E11.621 Type 2 diabetes mellitus with foot ulcer (principal); L97.415 Non-pressure chronic ulcer of right heel and midfoot with muscle involvement without evidence of necrosis; L97.516 Non-pressure chronic ulcer of other part of right foot with bone involvement without evidence of necrosis; I87.2 Venous insufficiency (chronic) (peripheral); I70.25 Atherosclerosis of native arteries of other extremities with ulceration; Z89.512 Acquired absence of left leg below knee; Z95.0 Presence of cardiac pacemaker | CPT/HCPCS: 82947; G0277 ==

== ENCOUNTER 2019-12-25 00:25 | Day surgery (SDC) | payer MEDICARE, OTHER | END 2019-12-25 22:39 | disposition home or self-care (01) | LOC: HBO 00:25 | DX: E11.621 Type 2 diabetes mellitus with foot ulcer (principal); L97.415 Non-pressure chronic ulcer of right heel and midfoot with muscle involvement without evidence of necrosis; L97.516 Non-pressure chronic ulcer of other part of right foot with bone involvement without evidence of necrosis; Z89.512 Acquired absence of left leg below knee; Z95.0 Presence of cardiac pacemaker; I87.2 Venous insufficiency (chronic) (peripheral); I70.25 Atherosclerosis of native arteries of other extremities with ulceration; Z79.899 Other long term (current) drug therapy; Z79.4 Long term (current) use of insulin | CPT/HCPCS: 82947; G0277 ==

== ENCOUNTER 2019-12-26 00:39 | Day surgery (SDC) | payer MEDICARE, OTHER | END 2019-12-26 23:45 | disposition home or self-care (01) | LOC: HBO 00:39 | DX: E11.621 Type 2 diabetes mellitus with foot ulcer (principal); L97.415 Non-pressure chronic ulcer of right heel and midfoot with muscle involvement without evidence of necrosis; L97.516 Non-pressure chronic ulcer of other part of right foot with bone involvement without evidence of necrosis; Z89.512 Acquired absence of left leg below knee; Z95.0 Presence of cardiac pacemaker; I87.2 Venous insufficiency (chronic) (peripheral); I70.25 Atherosclerosis of native arteries of other extremities with ulceration; Z79.4 Long term (current) use of insulin; Z79.899 Other long term (current) drug therapy | CPT/HCPCS: 82947; G0277 ==

== ENCOUNTER 2019-12-30 00:27 | Day surgery (SDC) | payer MEDICARE, OTHER | END 2019-12-30 22:37 | disposition home or self-care (01) | LOC: HBO 00:27 | DX: E11.621 Type 2 diabetes mellitus with foot ulcer (principal); L97.415 Non-pressure chronic ulcer of right heel and midfoot with muscle involvement without evidence of necrosis; L97.516 Non-pressure chronic ulcer of other part of right foot with bone involvement without evidence of necrosis; Z89.512 Acquired absence of left leg below knee; Z95.0 Presence of cardiac pacemaker; I87.2 Venous insufficiency (chronic) (peripheral); I70.25 Atherosclerosis of native arteries of other extremities with ulceration; Z79.4 Long term (current) use of insulin | CPT/HCPCS: 82947; G0277 ==

== ENCOUNTER 2019-12-31 00:13 | Day surgery (SDC) | payer MEDICARE, OTHER | END 2019-12-31 23:01 | disposition home or self-care (01) | LOC: HBO 00:13 | DX: E11.621 Type 2 diabetes mellitus with foot ulcer (principal); L97.415 Non-pressure chronic ulcer of right heel and midfoot with muscle involvement without evidence of necrosis; L97.516 Non-pressure chronic ulcer of other part of right foot with bone involvement without evidence of necrosis; I87.2 Venous insufficiency (chronic) (peripheral); I70.25 Atherosclerosis of native arteries of other extremities with ulceration; Z89.512 Acquired absence of left leg below knee; Z95.0 Presence of cardiac pacemaker; Z88.2 Allergy status to sulfonamides; Z88.1 Allergy status to other antibiotic agents; Z88.8 Allergy status to other drugs, medicaments and biological substances | CPT/HCPCS: 82947; G0277 ==

== ENCOUNTER 2020-01-01 00:13 | Day surgery (SDC) | payer MEDICARE, OTHER | END 2020-01-01 23:13 | disposition home or self-care (01) | LOC: HBO 00:13 | DX: E11.621 Type 2 diabetes mellitus with foot ulcer (principal); L97.415 Non-pressure chronic ulcer of right heel and midfoot with muscle involvement without evidence of necrosis; I87.2 Venous insufficiency (chronic) (peripheral); I70.25 Atherosclerosis of native arteries of other extremities with ulceration; L97.516 Non-pressure chronic ulcer of other part of right foot with bone involvement without evidence of necrosis; Z89.512 Acquired absence of left leg below knee; Z95.0 Presence of cardiac pacemaker; Z79.4 Long term (current) use of insulin; Z79.899 Other long term (current) drug therapy | CPT/HCPCS: 82947; G0277 ==

== ENCOUNTER 2020-01-02 01:35 | Day surgery (SDC) | payer MEDICARE, OTHER | END 2020-01-02 22:44 | disposition home or self-care (01) | LOC: HBO 01:35 | DX: E11.621 Type 2 diabetes mellitus with foot ulcer (principal); L97.415 Non-pressure chronic ulcer of right heel and midfoot with muscle involvement without evidence of necrosis; L97.516 Non-pressure chronic ulcer of other part of right foot with bone involvement without evidence of necrosis; Z89.512 Acquired absence of left leg below knee; Z95.0 Presence of cardiac pacemaker; I87.2 Venous insufficiency (chronic) (peripheral); I70.25 Atherosclerosis of native arteries of other extremities with ulceration; Z79.4 Long term (current) use of insulin; Z79.899 Other long term (current) drug therapy | CPT/HCPCS: 82947; G0277 ==

== ENCOUNTER 2020-01-05 00:30 | Day surgery (SDC) | payer MEDICARE, OTHER | END 2020-01-05 22:40 | disposition home or self-care (01) | LOC: HBO 00:30 | DX: E11.621 Type 2 diabetes mellitus with foot ulcer (principal); L97.415 Non-pressure chronic ulcer of right heel and midfoot with muscle involvement without evidence of necrosis; L97.516 Non-pressure chronic ulcer of other part of right foot with bone involvement without evidence of necrosis; I87.2 Venous insufficiency (chronic) (peripheral); I70.25 Atherosclerosis of native arteries of other extremities with ulceration; Z89.512 Acquired absence of left leg below knee; Z95.0 Presence of cardiac pacemaker; Z79.4 Long term (current) use of insulin; Z79.899 Other long term (current) drug therapy | CPT/HCPCS: 82947; G0277 ==

== ENCOUNTER 2020-01-05 00:32 | Day surgery (SDC) | payer MEDICARE, OTHER | END 2020-01-05 22:40 | disposition home or self-care (01) | LOC: WOUND 00:32 | DX: E11.621 Type 2 diabetes mellitus with foot ulcer (principal); L97.415 Non-pressure chronic ulcer of right heel and midfoot with muscle involvement without evidence of necrosis; E11.51 Type 2 diabetes mellitus with diabetic peripheral angiopathy without gangrene; I10 Essential (primary) hypertension; L97.516 Non-pressure chronic ulcer of other part of right foot with bone involvement without evidence of necrosis; I87.2 Venous insufficiency (chronic) (peripheral); I70.25 Atherosclerosis of native arteries of other extremities with ulceration; Z89.512 Acquired absence of left leg below knee; Z95.0 Presence of cardiac pacemaker; Z79.899 Other long term (current) drug therapy; Z79.4 Long term (current) use of insulin ==

== ENCOUNTER 2020-01-06 09:09 | Day surgery (SDC) | payer MEDICARE, OTHER | END 2020-01-06 23:14 | disposition home or self-care (01) | LOC: HBO 09:09 | DX: E11.621 Type 2 diabetes mellitus with foot ulcer (principal); L97.415 Non-pressure chronic ulcer of right heel and midfoot with muscle involvement without evidence of necrosis; L97.516 Non-pressure chronic ulcer of other part of right foot with bone involvement without evidence of necrosis; I87.2 Venous insufficiency (chronic) (peripheral); I70.25 Atherosclerosis of native arteries of other extremities with ulceration; Z79.899 Other long term (current) drug therapy; Z79.4 Long term (current) use of insulin; Z89.512 Acquired absence of left leg below knee; Z95.0 Presence of cardiac pacemaker | CPT/HCPCS: 82947; G0463 ==

== ENCOUNTER 2020-01-19 00:26 | Day surgery (SDC) | payer MEDICARE, OTHER | END 2020-01-19 22:48 | disposition home or self-care (01) | LOC: WOUND 00:26 | DX: E11.621 Type 2 diabetes mellitus with foot ulcer (principal); L97.415 Non-pressure chronic ulcer of right heel and midfoot with muscle involvement without evidence of necrosis; L97.516 Non-pressure chronic ulcer of other part of right foot with bone involvement without evidence of necrosis; I87.2 Venous insufficiency (chronic) (peripheral); E11.51 Type 2 diabetes mellitus with diabetic peripheral angiopathy without gangrene; I70.25 Atherosclerosis of native arteries of other extremities with ulceration; I10 Essential (primary) hypertension; Z95.0 Presence of cardiac pacemaker; Z89.512 Acquired absence of left leg below knee; Z79.899 Other long term (current) drug therapy; Z79.4 Long term (current) use of insulin | CPT/HCPCS: 87071; 87075; 87077; 87147; 87186; 87205 ==

== ENCOUNTER 2020-03-08 00:33 | Day surgery (SDC) | payer MEDICARE, OTHER | END 2020-03-08 22:57 | disposition home or self-care (01) | LOC: WOUND 00:33 | DX: E11.621 Type 2 diabetes mellitus with foot ulcer (principal); L97.415 Non-pressure chronic ulcer of right heel and midfoot with muscle involvement without evidence of necrosis; L97.516 Non-pressure chronic ulcer of other part of right foot with bone involvement without evidence of necrosis; I87.2 Venous insufficiency (chronic) (peripheral); I70.25 Atherosclerosis of native arteries of other extremities with ulceration; I10 Essential (primary) hypertension; I44.2 Atrioventricular block, complete; Z89.512 Acquired absence of left leg below knee; Z95.0 Presence of cardiac pacemaker ==

== ENCOUNTER 2020-03-23 00:32 | Day surgery (SDC) | payer MEDICARE, OTHER | END 2020-03-23 22:38 | disposition home or self-care (01) | LOC: WOUND 00:32 | DX: E11.621 Type 2 diabetes mellitus with foot ulcer (principal); L97.415 Non-pressure chronic ulcer of right heel and midfoot with muscle involvement without evidence of necrosis; L97.516 Non-pressure chronic ulcer of other part of right foot with bone involvement without evidence of necrosis; Z79.4 Long term (current) use of insulin | CPT/HCPCS: G0463 ==

== ENCOUNTER 2020-04-06 00:28 | Day surgery (SDC) | payer MEDICARE, OTHER | END 2020-04-06 22:44 | disposition home or self-care (01) | LOC: WOUND 00:28 | DX: E11.621 Type 2 diabetes mellitus with foot ulcer (principal); L97.415 Non-pressure chronic ulcer of right heel and midfoot with muscle involvement without evidence of necrosis; L97.516 Non-pressure chronic ulcer of other part of right foot with bone involvement without evidence of necrosis; Z95.0 Presence of cardiac pacemaker; I87.2 Venous insufficiency (chronic) (peripheral); I70.25 Atherosclerosis of native arteries of other extremities with ulceration; Z79.4 Long term (current) use of insulin | CPT/HCPCS: G0463 ==

== ENCOUNTER 2020-04-19 00:35 | Day surgery (SDC) | payer MEDICARE, OTHER | END 2020-04-19 23:05 | disposition home or self-care (01) | LOC: WOUND 00:35 | DX: E11.621 Type 2 diabetes mellitus with foot ulcer (principal); E11.51 Type 2 diabetes mellitus with diabetic peripheral angiopathy without gangrene; L97.415 Non-pressure chronic ulcer of right heel and midfoot with muscle involvement without evidence of necrosis; L97.516 Non-pressure chronic ulcer of other part of right foot with bone involvement without evidence of necrosis; I87.2 Venous insufficiency (chronic) (peripheral); I70.25 Atherosclerosis of native arteries of other extremities with ulceration; I10 Essential (primary) hypertension; Z89.512 Acquired absence of left leg below knee; Z95.0 Presence of cardiac pacemaker; Z79.899 Other long term (current) drug therapy; Z79.4 Long term (current) use of insulin | CPT/HCPCS: G0463 ==

== ENCOUNTER 2020-04-30 02:00 | Day surgery (SDC) | payer MEDICARE, OTHER | END 2020-04-30 22:44 | disposition home or self-care (01) | LOC: WOUND 02:00 | DX: E11.621 Type 2 diabetes mellitus with foot ulcer (principal); L97.412 Non-pressure chronic ulcer of right heel and midfoot with fat layer exposed; L97.516 Non-pressure chronic ulcer of other part of right foot with bone involvement without evidence of necrosis; I87.2 Venous insufficiency (chronic) (peripheral); I70.25 Atherosclerosis of native arteries of other extremities with ulceration; E11.51 Type 2 diabetes mellitus with diabetic peripheral angiopathy without gangrene; I10 Essential (primary) hypertension; Z89.512 Acquired absence of left leg below knee; Z79.899 Other long term (current) drug therapy; Z79.4 Long term (current) use of insulin ==

== ENCOUNTER 2020-05-07 02:13 | Day surgery (SDC) | payer MEDICARE, OTHER | END 2020-05-07 23:01 | disposition home or self-care (01) | LOC: WOUND 02:13 | DX: E11.621 Type 2 diabetes mellitus with foot ulcer (principal); L97.412 Non-pressure chronic ulcer of right heel and midfoot with fat layer exposed; L97.516 Non-pressure chronic ulcer of other part of right foot with bone involvement without evidence of necrosis; I87.2 Venous insufficiency (chronic) (peripheral); I70.25 Atherosclerosis of native arteries of other extremities with ulceration; E11.51 Type 2 diabetes mellitus with diabetic peripheral angiopathy without gangrene; I10 Essential (primary) hypertension; Z89.512 Acquired absence of left leg below knee; Z79.899 Other long term (current) drug therapy; Z79.4 Long term (current) use of insulin ==

== ENCOUNTER → 2020-05-19 | Outpatient (CLI) | payer MEDICARE, OTHER | END | disposition home or self-care (01) | LOC: LAB UVN 05:42 → EDSTATUS 09:27 | DX: E11.42 Type 2 diabetes mellitus with diabetic polyneuropathy (principal) | CPT/HCPCS: 83036 ==

== ENCOUNTER 2020-05-21 01:00 | Day surgery (SDC) | payer MEDICARE, OTHER | END 2020-05-21 23:13 | disposition home or self-care (01) | LOC: WOUND 01:00 | DX: E11.621 Type 2 diabetes mellitus with foot ulcer (principal); L97.412 Non-pressure chronic ulcer of right heel and midfoot with fat layer exposed; L97.516 Non-pressure chronic ulcer of other part of right foot with bone involvement without evidence of necrosis; I87.2 Venous insufficiency (chronic) (peripheral); I70.25 Atherosclerosis of native arteries of other extremities with ulceration; Z89.512 Acquired absence of left leg below knee; Z79.899 Other long term (current) drug therapy; Z79.4 Long term (current) use of insulin ==

== ENCOUNTER 2020-05-28 00:19 | Day surgery (SDC) | payer MEDICARE, OTHER | END 2020-05-28 22:54 | disposition home or self-care (01) | LOC: WOUND 00:19 | DX: E11.621 Type 2 diabetes mellitus with foot ulcer (principal); L97.412 Non-pressure chronic ulcer of right heel and midfoot with fat layer exposed; E11.52 Type 2 diabetes mellitus with diabetic peripheral angiopathy with gangrene; I96 Gangrene, not elsewhere classified; E11.69 Type 2 diabetes mellitus with other specified complication; M86.671 Other chronic osteomyelitis, right ankle and foot; I70.25 Atherosclerosis of native arteries of other extremities with ulceration; J32.9 Chronic sinusitis, unspecified; I49.9 Cardiac arrhythmia, unspecified; I11.0 Hypertensive heart disease with heart failure; M19.90 Unspecified osteoarthritis, unspecified site; I10 Essential (primary) hypertension; Z88.2 Allergy status to sulfonamides; Z88.8 Allergy status to other drugs, medicaments and biological substances; Z91.041 Radiographic dye allergy status; Z95.0 Presence of cardiac pacemaker; Z79.4 Long term (current) use of insulin; Z79.899 Other long term (current) drug therapy | CPT/HCPCS: G0463 ==

== ENCOUNTER → 2020-05-31 | Outpatient (CLI) | payer MEDICARE, OTHER ==
[2020-05-31 23:45] LABS: Anion Gap 2 mmol/L (6-16); Blood Urea Nitrogen 47 mg/dL (8-24); CO2, Blood 29 mmol/L (21-32); Chloride, Blood 104 mmol/L (98-108); Glomerular Filtration Rate >60 (60-); Glucose, Blood 252 mg/dL (70-99); Sodium, Blood 135 mmol/L (136-145)
== END | disposition home or self-care (01) ==
LOC: EDSTATUS 09:29 → LAB UVN 22:37
PROVIDERS: Family Medicine
DX: E11.42 Type 2 diabetes mellitus with diabetic polyneuropathy (principal)
CPT/HCPCS: 80048

== ENCOUNTER 2020-06-04 00:46 | Day surgery (SDC) | payer MEDICARE, OTHER | END 2020-06-04 23:59 | disposition home or self-care (01) | LOC: WOUND 00:46 | DX: E11.621 Type 2 diabetes mellitus with foot ulcer (principal); L97.412 Non-pressure chronic ulcer of right heel and midfoot with fat layer exposed; E11.52 Type 2 diabetes mellitus with diabetic peripheral angiopathy with gangrene; I70.268 Atherosclerosis of native arteries of extremities with gangrene, other extremity; I70.25 Atherosclerosis of native arteries of other extremities with ulceration; I87.2 Venous insufficiency (chronic) (peripheral); E11.69 Type 2 diabetes mellitus with other specified complication; M86.671 Other chronic osteomyelitis, right ankle and foot; I10 Essential (primary) hypertension; J32.9 Chronic sinusitis, unspecified; I49.9 Cardiac arrhythmia, unspecified; Z95.0 Presence of cardiac pacemaker; Z88.2 Allergy status to sulfonamides; Z88.8 Allergy status to other drugs, medicaments and biological substances; Z91.041 Radiographic dye allergy status; Z79.4 Long term (current) use of insulin; Z79.899 Other long term (current) drug therapy; Z51.5 Encounter for palliative care | CPT/HCPCS: G0463 ==

== ENCOUNTER → 2020-06-16 | Outpatient (CLI) | payer MEDICARE, OTHER | END | disposition home or self-care (01) | LOC: LAB UVN 05:51 → EDSTATUS 15:00 | PROVIDERS: Nurse Practitioner Adult Health | DX: M86.9 Osteomyelitis, unspecified (principal) | CPT/HCPCS: 85651; 86140 ==

== ENCOUNTER 2020-06-18 01:35 | Day surgery (SDC) | payer MEDICARE, OTHER | END 2020-06-18 22:51 | disposition home or self-care (01) | LOC: WOUND 01:35 | DX: E11.621 Type 2 diabetes mellitus with foot ulcer (principal); L97.412 Non-pressure chronic ulcer of right heel and midfoot with fat layer exposed; E11.52 Type 2 diabetes mellitus with diabetic peripheral angiopathy with gangrene; I96 Gangrene, not elsewhere classified; I87.2 Venous insufficiency (chronic) (peripheral); I70.25 Atherosclerosis of native arteries of other extremities with ulceration; E11.69 Type 2 diabetes mellitus with other specified complication; M86.8X7 Other osteomyelitis, ankle and foot; J32.9 Chronic sinusitis, unspecified; I49.9 Cardiac arrhythmia, unspecified; I10 Essential (primary) hypertension; M19.90 Unspecified osteoarthritis, unspecified site; Z79.4 Long term (current) use of insulin; Z79.899 Other long term (current) drug therapy; Z88.2 Allergy status to sulfonamides; Z88.8 Allergy status to other drugs, medicaments and biological substances; Z91.041 Radiographic dye allergy status; Z91.048 Other nonmedicinal substance allergy status | CPT/HCPCS: G0463 ==

== ENCOUNTER 2020-06-24 00:30 | Day surgery (SDC) | payer MEDICARE, OTHER | END 2020-06-24 23:15 | disposition home or self-care (01) | LOC: WOUND 00:30 | DX: E11.621 Type 2 diabetes mellitus with foot ulcer (principal); E11.51 Type 2 diabetes mellitus with diabetic peripheral angiopathy without gangrene; L97.514 Non-pressure chronic ulcer of other part of right foot with necrosis of bone; L97.412 Non-pressure chronic ulcer of right heel and midfoot with fat layer exposed; M86.671 Other chronic osteomyelitis, right ankle and foot; I87.2 Venous insufficiency (chronic) (peripheral); I70.25 Atherosclerosis of native arteries of other extremities with ulceration; I10 Essential (primary) hypertension; Z89.512 Acquired absence of left leg below knee; Z79.899 Other long term (current) drug therapy; Z79.4 Long term (current) use of insulin | CPT/HCPCS: G0463 ==

== ENCOUNTER 2020-07-01 00:22 | Day surgery (SDC) | payer MEDICARE, OTHER | END 2020-07-01 23:05 | disposition home or self-care (01) | LOC: WOUND 00:22 | DX: E11.621 Type 2 diabetes mellitus with foot ulcer (principal); L97.412 Non-pressure chronic ulcer of right heel and midfoot with fat layer exposed; E11.52 Type 2 diabetes mellitus with diabetic peripheral angiopathy with gangrene; I96 Gangrene, not elsewhere classified; E11.622 Type 2 diabetes mellitus with other skin ulcer; L98.499 Non-pressure chronic ulcer of skin of other sites with unspecified severity; E11.69 Type 2 diabetes mellitus with other specified complication; M86.8X7 Other osteomyelitis, ankle and foot; I87.2 Venous insufficiency (chronic) (peripheral); I70.25 Atherosclerosis of native arteries of other extremities with ulceration; J32.9 Chronic sinusitis, unspecified; I49.9 Cardiac arrhythmia, unspecified; M19.90 Unspecified osteoarthritis, unspecified site; I10 Essential (primary) hypertension; Z95.0 Presence of cardiac pacemaker; Z79.4 Long term (current) use of insulin; Z79.899 Other long term (current) drug therapy; Z89.512 Acquired absence of left leg below knee; Z88.2 Allergy status to sulfonamides; Z88.8 Allergy status to other drugs, medicaments and biological substances; Z91.041 Radiographic dye allergy status; Z91.048 Other nonmedicinal substance allergy status | CPT/HCPCS: G0463 ==

== ENCOUNTER 2020-07-22 00:26 | Day surgery (SDC) | payer MEDICARE, OTHER | END 2020-07-22 23:34 | disposition home or self-care (01) | LOC: WOUND 00:26 | DX: E11.621 Type 2 diabetes mellitus with foot ulcer (principal); L97.412 Non-pressure chronic ulcer of right heel and midfoot with fat layer exposed; I87.2 Venous insufficiency (chronic) (peripheral); E11.51 Type 2 diabetes mellitus with diabetic peripheral angiopathy without gangrene; E11.65 Type 2 diabetes mellitus with hyperglycemia; I10 Essential (primary) hypertension; I70.25 Atherosclerosis of native arteries of other extremities with ulceration; M86.671 Other chronic osteomyelitis, right ankle and foot; M19.071 Primary osteoarthritis, right ankle and foot; M85.80 Other specified disorders of bone density and structure, unspecified site; Z89.512 Acquired absence of left leg below knee; Z95.0 Presence of cardiac pacemaker | CPT/HCPCS: A9270 ==

== ENCOUNTER → 2020-07-28 | Outpatient (CLI) | payer MEDICARE, OTHER | LOC: LAB UVN 04:10 → EDSTATUS 11:37 | DX: M86.9 Osteomyelitis, unspecified (principal) | CPT/HCPCS: 85651; 86140 ==

== ENCOUNTER → 2020-08-11 | Outpatient (CLI) | payer MEDICARE, OTHER | END | disposition home or self-care (01) | LOC: LAB UVN 07:08 → EDSTATUS 11:38 | DX: E11.42 Type 2 diabetes mellitus with diabetic polyneuropathy (principal) | CPT/HCPCS: 83036 ==

== ENCOUNTER 2020-08-12 00:28 | Day surgery (SDC) | payer MEDICARE, OTHER | END 2020-08-12 23:33 | disposition home or self-care (01) | LOC: WOUND 00:28 | DX: E11.621 Type 2 diabetes mellitus with foot ulcer (principal); L97.412 Non-pressure chronic ulcer of right heel and midfoot with fat layer exposed; I87.2 Venous insufficiency (chronic) (peripheral); I10 Essential (primary) hypertension; Z89.512 Acquired absence of left leg below knee; Z95.0 Presence of cardiac pacemaker | CPT/HCPCS: G0463 ==

== ENCOUNTER 2020-08-26 00:35 | Day surgery (SDC) | payer MEDICARE, OTHER | END 2020-08-26 22:50 | disposition home or self-care (01) | LOC: WOUND 00:35 | DX: L97.412 Non-pressure chronic ulcer of right heel and midfoot with fat layer exposed (principal); E11.621 Type 2 diabetes mellitus with foot ulcer; I44.2 Atrioventricular block, complete; I10 Essential (primary) hypertension; E11.51 Type 2 diabetes mellitus with diabetic peripheral angiopathy without gangrene; Z95.0 Presence of cardiac pacemaker ==

== ENCOUNTER → 2020-09-04 | Outpatient (CLI) | payer MEDICARE, OTHER ==
[2020-09-04 05:56] LABS: Source, Urine Clean Catch
[2020-09-04 06:06] LABS: BASOPHILS ABSOLUTE AUTO 0.05 K/mm3 (0.00-0.23); BASOPHILS PERCENT AUTO 0 % (0-2); EOSINOPHILS ABSOLUTE AUTO 0.06 K/mm3 (0.00-0.68); EOSINOPHILS PERCENT AUTO 0 % (0-6); Hematocrit 31.8 % (33.0-51.0); Hemoglobin 10.1 g/dL (11.5-16.0); IMMATURE GRAN ABSOLUTE AUTO 0.06 K/mm3 (0.00-0.10); IMMATURE GRAN PERCENT AUTO 0 % (0-1); LYMPHOCYTES ABSOLUTE AUTO 1.81 K/mm3 (0.84-5.20); LYMPHOCYTES PERCENT AUTO 13 % (21-46); MONOCYTES ABSOLUTE AUTO 0.93 K/mm3 (0.16-1.47); MONOCYTES PERCENT AUTO 7 % (4-13); Mean Corpuscular HGB 27.7 pg (26.0-34.0); Mean Corpuscular HGB Conc 31.8 g/dL (31.5-36.5); Mean Corpuscular Volume 87 fL (80-100); Mean Platelet Volume 11.7 fL (9.1-12.4); NEUTROPHILS ABSOLUTE AUTO 11.41 K/mm3 (1.96-9.15); NEUTROPHILS PERCENT AUTO 80 % (41-73); Platelet Count 198 K/mm3 (150-400); RDW Coefficient Variation 14.6 % (11.7-14.2); RDW Standard Deviation 46.9 fL (35.1-46.3); Red Blood Cell Count 3.64 M/mm3 (3.80-5.20); White Blood Cell Count 14.32 K/mm3 (4.00-11.30)
[2020-09-04 06:16] LABS: Bilirubin, Urine Neg (Neg); Blood, Urine Neg (Neg); Glucose Qualitative, Urine Neg (Neg); Ketones, Urine Neg (Neg); Leukocyte Esterase, Urine 2+ (Neg); Nitrite, Urine Neg (Neg); Protein, Urine 2+ (Neg); Specific Gravity, Urine 1.015 (1.003-1.022); Urobilinogen, Urine NORM (Normal)
[2020-09-04 06:20] LABS: Anion Gap 7 mmol/L (6-16); Blood Urea Nitrogen 27 mg/dL (8-24); Bun/Creatinine Ratio 35.7 (12.0-20.0); CO2, Blood 27 mmol/L (21-32); Chloride, Blood 105 mmol/L (98-108); Creatinine, Blood 0.76 mg/dL (0.40-1.00); Glomerular Filtration Rate >60 (60-); Glucose, Blood 128 mg/dL (70-99); Sodium, Blood 139 mmol/L (136-145)
[2020-09-04 06:38] LABS: Appearance, Urine Clear (Clear); Bacteria Rare /hpf; Color, Urine Yellow (P-Yellow); Red Blood Cells, Urine Not Seen /hpf (0-2); Squamous Epithelial Cells Not Seen /hpf (Few)
== END | disposition home or self-care (01) ==
LOC: LAB UVN 05:54 → EDSTATUS 13:08
PROVIDERS: Family Medicine
DX: R50.9 Fever, unspecified (principal)
CPT/HCPCS: 80048; 81001; 85025; 87077; 87086; 87186

== ENCOUNTER 2020-09-09 00:11 | Day surgery (SDC) | payer MEDICARE, OTHER | END 2020-09-09 23:45 | disposition home or self-care (01) | LOC: WOUND 00:11 | DX: E11.621 Type 2 diabetes mellitus with foot ulcer (principal); L97.412 Non-pressure chronic ulcer of right heel and midfoot with fat layer exposed; I87.2 Venous insufficiency (chronic) (peripheral); I10 Essential (primary) hypertension; Z89.512 Acquired absence of left leg below knee ==

== ENCOUNTER 2020-09-16 00:10 | Day surgery (SDC) | payer MEDICARE, OTHER | END 2020-09-16 23:03 | disposition home or self-care (01) | LOC: WOUND 00:10 | DX: E11.621 Type 2 diabetes mellitus with foot ulcer (principal); L97.412 Non-pressure chronic ulcer of right heel and midfoot with fat layer exposed; I87.2 Venous insufficiency (chronic) (peripheral); I10 Essential (primary) hypertension; E11.51 Type 2 diabetes mellitus with diabetic peripheral angiopathy without gangrene; N39.0 Urinary tract infection, site not specified; Z86.14 Personal history of Methicillin resistant Staphylococcus aureus infection; Z95.0 Presence of cardiac pacemaker; Z89.512 Acquired absence of left leg below knee; Z88.2 Allergy status to sulfonamides; Z88.8 Allergy status to other drugs, medicaments and biological substances; Z88.1 Allergy status to other antibiotic agents | CPT/HCPCS: A9270 ==

== ENCOUNTER 2020-09-23 00:16 | Day surgery (SDC) | payer MEDICARE, OTHER | END 2020-09-23 22:57 | disposition home or self-care (01) | LOC: WOUND 00:16 | DX: E11.621 Type 2 diabetes mellitus with foot ulcer (principal); L97.412 Non-pressure chronic ulcer of right heel and midfoot with fat layer exposed; I87.2 Venous insufficiency (chronic) (peripheral); E11.51 Type 2 diabetes mellitus with diabetic peripheral angiopathy without gangrene; E11.65 Type 2 diabetes mellitus with hyperglycemia; I10 Essential (primary) hypertension; M19.079 Primary osteoarthritis, unspecified ankle and foot; Z89.512 Acquired absence of left leg below knee; Z86.14 Personal history of Methicillin resistant Staphylococcus aureus infection; Z95.0 Presence of cardiac pacemaker | CPT/HCPCS: A9270 ==

== ENCOUNTER 2020-09-30 00:19 | Day surgery (SDC) | payer MEDICARE, OTHER | END 2020-09-30 23:00 | disposition home or self-care (01) | LOC: WOUND 00:19 | DX: E11.621 Type 2 diabetes mellitus with foot ulcer (principal); L97.412 Non-pressure chronic ulcer of right heel and midfoot with fat layer exposed; E11.51 Type 2 diabetes mellitus with diabetic peripheral angiopathy without gangrene; I87.2 Venous insufficiency (chronic) (peripheral); I10 Essential (primary) hypertension; Z89.512 Acquired absence of left leg below knee; Z79.4 Long term (current) use of insulin | CPT/HCPCS: G0463 ==

== ENCOUNTER 2020-10-07 00:10 | Day surgery (SDC) | payer MEDICARE, OTHER | END 2020-10-07 23:35 | disposition home or self-care (01) | LOC: WOUND 00:10 | DX: E11.621 Type 2 diabetes mellitus with foot ulcer (principal); L97.412 Non-pressure chronic ulcer of right heel and midfoot with fat layer exposed; I87.2 Venous insufficiency (chronic) (peripheral); Z89.512 Acquired absence of left leg below knee | CPT/HCPCS: G0463 ==

== ENCOUNTER 2020-10-14 00:17 | Day surgery (SDC) | payer MEDICARE, OTHER | END 2020-10-14 22:53 | disposition home or self-care (01) | LOC: WOUND 00:17 | DX: E11.621 Type 2 diabetes mellitus with foot ulcer (principal); L97.412 Non-pressure chronic ulcer of right heel and midfoot with fat layer exposed; E11.51 Type 2 diabetes mellitus with diabetic peripheral angiopathy without gangrene; I10 Essential (primary) hypertension; I44.2 Atrioventricular block, complete; M19.079 Primary osteoarthritis, unspecified ankle and foot; I87.2 Venous insufficiency (chronic) (peripheral); M85.80 Other specified disorders of bone density and structure, unspecified site; Z95.0 Presence of cardiac pacemaker; Z89.512 Acquired absence of left leg below knee | CPT/HCPCS: A9270 ==

== ENCOUNTER → 2020-10-20 | Outpatient (CLI) | payer MEDICARE, OTHER | END | disposition home or self-care (01) | LOC: LAB UVN 06:07 → EDSTATUS 08:27 | DX: M86.9 Osteomyelitis, unspecified (principal) | CPT/HCPCS: 85651; 86140 ==

== ENCOUNTER 2020-10-21 00:31 | Day surgery (SDC) | payer MEDICARE, OTHER | END 2020-10-21 22:59 | disposition home or self-care (01) | LOC: WOUND 00:31 | DX: E11.621 Type 2 diabetes mellitus with foot ulcer (principal); L97.412 Non-pressure chronic ulcer of right heel and midfoot with fat layer exposed; I87.2 Venous insufficiency (chronic) (peripheral); Z89.512 Acquired absence of left leg below knee | CPT/HCPCS: A9270 ==

== ENCOUNTER → 2020-11-03 | Outpatient (CLI) | payer MEDICARE, OTHER | LOC: LAB UVN 06:01 → EDSTATUS 08:28 | DX: E11.42 Type 2 diabetes mellitus with diabetic polyneuropathy (principal) | CPT/HCPCS: 83036 ==

== ENCOUNTER 2020-11-04 00:29 | Day surgery (SDC) | payer MEDICARE, OTHER | END 2020-11-04 23:18 | disposition home or self-care (01) | LOC: WOUND 00:29 | DX: E11.621 Type 2 diabetes mellitus with foot ulcer (principal); L97.412 Non-pressure chronic ulcer of right heel and midfoot with fat layer exposed; Z89.512 Acquired absence of left leg below knee; I87.2 Venous insufficiency (chronic) (peripheral) | CPT/HCPCS: A9270 ==

== ENCOUNTER 2020-11-18 01:53 | Day surgery (SDC) | payer MEDICARE, OTHER | END 2020-11-18 23:13 | disposition home or self-care (01) | LOC: WOUND 01:53 | DX: E11.621 Type 2 diabetes mellitus with foot ulcer (principal); L97.412 Non-pressure chronic ulcer of right heel and midfoot with fat layer exposed; I87.2 Venous insufficiency (chronic) (peripheral); Z89.512 Acquired absence of left leg below knee; I10 Essential (primary) hypertension; Z95.0 Presence of cardiac pacemaker | CPT/HCPCS: A9270 ==

== ENCOUNTER 2020-11-25 00:23 | Day surgery (SDC) | payer MEDICARE, OTHER | END 2020-11-25 22:50 | disposition home or self-care (01) | LOC: WOUND 00:23 | DX: E11.621 Type 2 diabetes mellitus with foot ulcer (principal); L97.412 Non-pressure chronic ulcer of right heel and midfoot with fat layer exposed; M19.079 Primary osteoarthritis, unspecified ankle and foot; I87.2 Venous insufficiency (chronic) (peripheral); Z89.512 Acquired absence of left leg below knee | CPT/HCPCS: A9270; G0463 ==

== ENCOUNTER → 2020-12-01 | Outpatient (CLI) | payer MEDICARE, OTHER | END | disposition home or self-care (01) | LOC: LAB UVN 12:25 → EDSTATUS 14:04 | DX: M86.9 Osteomyelitis, unspecified (principal) | CPT/HCPCS: 85651; 86140 ==

== ENCOUNTER 2020-12-02 00:31 | Day surgery (SDC) | payer MEDICARE, OTHER | END 2020-12-02 23:02 | disposition home or self-care (01) | LOC: WOUND 00:31 | DX: E11.621 Type 2 diabetes mellitus with foot ulcer (principal); L97.412 Non-pressure chronic ulcer of right heel and midfoot with fat layer exposed; I87.2 Venous insufficiency (chronic) (peripheral); Z89.512 Acquired absence of left leg below knee | CPT/HCPCS: A9270 ==

== ENCOUNTER → 2020-12-02 | Outpatient (CLI) | payer MEDICARE, OTHER | END | disposition home or self-care (01) | LOC: LAB UVN 05:40 → EDSTATUS 14:05 | DX: M86.9 Osteomyelitis, unspecified (principal) | CPT/HCPCS: 85651; 86140 ==

== ENCOUNTER → 2020-12-06 | Outpatient (CLI) | payer MEDICARE, OTHER ==
[2020-12-06 05:52] LABS: BASOPHILS ABSOLUTE AUTO 0.05 K/mm3 (0.00-0.23); BASOPHILS PERCENT AUTO 1 % (0-2); EOSINOPHILS ABSOLUTE AUTO 0.17 K/mm3 (0.00-0.68); EOSINOPHILS PERCENT AUTO 2 % (0-6); Hematocrit 30.9 % (33.0-51.0); Hemoglobin 9.9 g/dL (11.5-16.0); IMMATURE GRAN ABSOLUTE AUTO 0.04 K/mm3 (0.00-0.10); IMMATURE GRAN PERCENT AUTO 0 % (0-1); LYMPHOCYTES PERCENT AUTO 17 % (21-46); MONOCYTES ABSOLUTE AUTO 0.88 K/mm3 (0.16-1.47); MONOCYTES PERCENT AUTO 9 % (4-13); Mean Corpuscular HGB 27.6 pg (26.0-34.0); Mean Corpuscular Volume 86 fL (80-100); Mean Platelet Volume 12.1 fL (9.1-12.4); NEUTROPHILS ABSOLUTE AUTO 6.82 K/mm3 (1.96-9.15); NEUTROPHILS PERCENT AUTO 71 % (41-73); Platelet Count 213 K/mm3 (150-400); RDW Standard Deviation 44.1 fL (35.1-46.3); Red Blood Cell Count 3.59 M/mm3 (3.80-5.20); White Blood Cell Count 9.56 K/mm3 (4.00-11.30)
== END | disposition home or self-care (01) ==
LOC: LAB UVN 05:46 → EDSTATUS 12:26
PROVIDERS: Internal Medicine
DX: S91.301A Unspecified open wound, right foot, initial encounter (principal); I48.20 Chronic atrial fibrillation, unspecified; B95.62 Methicillin resistant Staphylococcus aureus infection as the cause of diseases classified elsewhere; D64.9 Anemia, unspecified
CPT/HCPCS: 85025

== ENCOUNTER 2020-12-16 05:30 | Day surgery (SDC) | payer MEDICARE, OTHER | END 2020-12-16 22:45 | disposition home or self-care (01) | LOC: WOUND 05:30 | DX: E11.621 Type 2 diabetes mellitus with foot ulcer (principal); L97.412 Non-pressure chronic ulcer of right heel and midfoot with fat layer exposed; I87.2 Venous insufficiency (chronic) (peripheral); Z89.512 Acquired absence of left leg below knee | CPT/HCPCS: A9270 ==

== ENCOUNTER 2020-12-23 03:48 | Day surgery (SDC) | payer MEDICARE, OTHER | END 2020-12-23 22:49 | disposition home or self-care (01) | LOC: WOUND 03:48 | DX: E11.621 Type 2 diabetes mellitus with foot ulcer (principal); L97.412 Non-pressure chronic ulcer of right heel and midfoot with fat layer exposed; I87.2 Venous insufficiency (chronic) (peripheral); Z89.512 Acquired absence of left leg below knee; I44.2 Atrioventricular block, complete; Z95.0 Presence of cardiac pacemaker; I10 Essential (primary) hypertension; I73.9 Peripheral vascular disease, unspecified | CPT/HCPCS: A9270 ==

== ENCOUNTER 2020-12-30 04:04 | Day surgery (SDC) | payer MEDICARE, OTHER | END 2020-12-30 23:19 | disposition home or self-care (01) | LOC: WOUND 04:04 | DX: E11.621 Type 2 diabetes mellitus with foot ulcer (principal); L97.412 Non-pressure chronic ulcer of right heel and midfoot with fat layer exposed; I87.2 Venous insufficiency (chronic) (peripheral); Z89.512 Acquired absence of left leg below knee | CPT/HCPCS: A9270 ==

== ENCOUNTER 2021-01-06 00:25 | Day surgery (SDC) | payer MEDICARE, OTHER | END 2021-01-06 22:50 | disposition home or self-care (01) | LOC: WOUND 00:25 | DX: E11.621 Type 2 diabetes mellitus with foot ulcer (principal); L97.412 Non-pressure chronic ulcer of right heel and midfoot with fat layer exposed; I87.2 Venous insufficiency (chronic) (peripheral); Z89.512 Acquired absence of left leg below knee | CPT/HCPCS: A9270; G0463 ==

== ENCOUNTER 2021-01-11 04:13 | Day surgery (SDC) | payer MEDICARE, OTHER | END 2021-01-11 23:50 | disposition home or self-care (01) | LOC: WOUND 04:13 | DX: E11.621 Type 2 diabetes mellitus with foot ulcer (principal); L97.412 Non-pressure chronic ulcer of right heel and midfoot with fat layer exposed; I87.2 Venous insufficiency (chronic) (peripheral); I10 Essential (primary) hypertension; I44.2 Atrioventricular block, complete; Z89.512 Acquired absence of left leg below knee; Z95.0 Presence of cardiac pacemaker | CPT/HCPCS: A9270; G0463 ==

== ENCOUNTER 2021-01-27 00:39 | Day surgery (SDC) | payer MEDICARE, OTHER | END 2021-01-27 23:04 | disposition home or self-care (01) | LOC: WOUND 00:39 | DX: E11.621 Type 2 diabetes mellitus with foot ulcer (principal); L97.412 Non-pressure chronic ulcer of right heel and midfoot with fat layer exposed; I87.2 Venous insufficiency (chronic) (peripheral); Z89.512 Acquired absence of left leg below knee; I44.2 Atrioventricular block, complete; Z95.0 Presence of cardiac pacemaker; I10 Essential (primary) hypertension | CPT/HCPCS: A9270; G0463 ==

== ENCOUNTER 2021-02-03 00:53 | Day surgery (SDC) | payer MEDICARE, OTHER | END 2021-02-03 22:46 | disposition home or self-care (01) | LOC: WOUND 00:53 | DX: E11.621 Type 2 diabetes mellitus with foot ulcer (principal); L97.412 Non-pressure chronic ulcer of right heel and midfoot with fat layer exposed; I87.2 Venous insufficiency (chronic) (peripheral); Z89.512 Acquired absence of left leg below knee; I44.2 Atrioventricular block, complete; Z95.0 Presence of cardiac pacemaker; I10 Essential (primary) hypertension; E11.51 Type 2 diabetes mellitus with diabetic peripheral angiopathy without gangrene | CPT/HCPCS: A9270; G0463 ==

== ENCOUNTER 2021-02-10 02:18 | Day surgery (SDC) | payer MEDICARE, OTHER | END 2021-02-10 22:41 | disposition home or self-care (01) | LOC: WOUND 02:18 | DX: E11.621 Type 2 diabetes mellitus with foot ulcer (principal); L97.412 Non-pressure chronic ulcer of right heel and midfoot with fat layer exposed; I87.2 Venous insufficiency (chronic) (peripheral); Z89.512 Acquired absence of left leg below knee; I10 Essential (primary) hypertension; E11.51 Type 2 diabetes mellitus with diabetic peripheral angiopathy without gangrene; Z95.0 Presence of cardiac pacemaker | CPT/HCPCS: A9270; G0463 ==

== ENCOUNTER 2021-04-05 04:34 | Day surgery (SDC) | payer MEDICARE, OTHER | END 2021-04-05 23:44 | disposition home or self-care (01) | LOC: WOUND 04:34 | DX: E11.621 Type 2 diabetes mellitus with foot ulcer (principal); L97.412 Non-pressure chronic ulcer of right heel and midfoot with fat layer exposed; I87.2 Venous insufficiency (chronic) (peripheral); Z89.512 Acquired absence of left leg below knee; I44.2 Atrioventricular block, complete; Z95.0 Presence of cardiac pacemaker; I10 Essential (primary) hypertension; E11.51 Type 2 diabetes mellitus with diabetic peripheral angiopathy without gangrene | CPT/HCPCS: A9270; G0463 ==

== ENCOUNTER 2021-04-12 02:44 | Day surgery (SDC) | payer MEDICARE, OTHER ==
[2021-04-13] MEDS ORDERED: ESCI5 PO (12:16)
[2021-04-13] MEDS ORDERED: AMLO10 PO (12:16)
[2021-04-13] MEDS ORDERED: GABA300 PO (12:16)
[2021-04-13] MEDS ORDERED: LOSARTAN POTAS100 M1 PO (12:16)
[2021-04-13] MEDS ORDERED: OXYC5 PO (12:17)
[2021-04-13] MEDS ORDERED: INSULANI (12:19)
[2021-04-13] MEDS ORDERED: LINE600 PO (14:19)
[2021-04-13] MEDS ORDERED: Lasix20 MG PO (14:19)
== END 2021-04-12 22:44 | disposition home or self-care (01) ==
LOC: WOUND 02:44
DX: E11.621 Type 2 diabetes mellitus with foot ulcer (principal); L97.412 Non-pressure chronic ulcer of right heel and midfoot with fat layer exposed; T87.89 Other complications of amputation stump; I87.2 Venous insufficiency (chronic) (peripheral); Z89.512 Acquired absence of left leg below knee
CPT/HCPCS: A9270; G0463

== ENCOUNTER 2021-04-13 12:00 | Emergency (ER) | payer MEDICARE, OTHER ==
[~2021-04-13] VITALS: Ht 167.6 cm; Wt 90.7 kg
[2021-04-13] MEDS ORDERED: AMLO10 PO (12:16)
[2021-04-13] MEDS ORDERED: ESCI5 PO (12:16)
[2021-04-13] MEDS ORDERED: GABA300 PO (12:16)
[2021-04-13] MEDS ORDERED: LOSARTAN POTAS100 M1 PO (12:16)
[2021-04-13] MEDS ORDERED: OXYC5 PO (12:17)
[2021-04-13] MEDS ORDERED: INSULANI (12:19)
[2021-04-13 14:04] LABS: BASOPHILS ABSOLUTE AUTO 0.07 K/mm3 (0.00-0.23); BASOPHILS PERCENT AUTO 1 % (0-2); EOSINOPHILS ABSOLUTE AUTO 0.25 K/mm3 (0.00-0.68); EOSINOPHILS PERCENT AUTO 3 % (0-6); Hematocrit 32.1 % (33.0-51.0); Hemoglobin 10.5 g/dL (11.5-16.0); IMMATURE GRAN ABSOLUTE AUTO 0.04 K/mm3 (0.00-0.10); IMMATURE GRAN PERCENT AUTO 1 % (0-1); LYMPHOCYTES ABSOLUTE AUTO 1.57 K/mm3 (0.84-5.20); LYMPHOCYTES PERCENT AUTO 20 % (21-46); MONOCYTES PERCENT AUTO 8 % (4-13); Mean Corpuscular HGB 27.5 pg (26.0-34.0); Mean Corpuscular HGB Conc 32.7 g/dL (31.5-36.5); Mean Corpuscular Volume 84 fL (80-100); Mean Platelet Volume 10.7 fL (9.1-12.4); NEUTROPHILS ABSOLUTE AUTO 5.32 K/mm3 (1.96-9.15); NEUTROPHILS PERCENT AUTO 68 % (41-73); Platelet Count 279 K/mm3 (150-400); RDW Coefficient Variation 14.7 % (11.7-14.2); RDW Standard Deviation 45.2 fL (35.1-46.3); Red Blood Cell Count 3.82 M/mm3 (3.80-5.20); White Blood Cell Count 7.85 K/mm3 (4.00-11.30)
[2021-04-13 14:11] LABS: Alanine Aminotransfer (ALT/SGP 15 U/L (12-78); Albumin, Blood 2.7 g/dL (3.4-5.0); Albumin/Globulin Ratio 0.7 (0.8-1.8); Alk Phos 127 U/L (50-136); Anion Gap 6 mmol/L (6-16); Aspartate Aminotrans (AST/SGOT 14 U/L (12-37); Bilirubin, Total 0.3 mg/dL (0.1-1.0); Blood Urea Nitrogen 37 mg/dL (8-24); Bun/Creatinine Ratio 43.2 (12.0-20.0); CO2, Blood 25 mmol/L (21-32); Calcium, Blood 9.1 mg/dL (8.5-10.1); Chloride, Blood 107 mmol/L (98-108); Creatinine, Blood 0.86 mg/dL (0.40-1.00); Globulin, Blood 3.9 g/dL (2.2-4.0); Glomerular Filtration Rate >60 (60-); Glucose, Blood 196 mg/dL (70-99); Potassium, Blood 4.7 mmol/L (3.5-5.5); Sodium, Blood 138 mmol/L (136-145); Total Protein, Blood 6.6 g/dL (6.4-8.2)
[2021-04-13] MEDS ORDERED: LINE600 PO (14:19)
[2021-04-13] MEDS ORDERED: Lasix20 MG PO (14:19)
== END 2021-04-13 17:36 | disposition home or self-care (01) ==
LOC: ER 12:00
PROVIDERS: Emergency Medicine
DX: T87.44 Infection of amputation stump, left lower extremity (principal); L03.116 Cellulitis of left lower limb; I12.9 Hypertensive chronic kidney disease with stage 1 through stage 4 chronic kidney disease, or unspecified chronic kidney disease; E11.22 Type 2 diabetes mellitus with diabetic chronic kidney disease; N18.9 Chronic kidney disease, unspecified; D63.1 Anemia in chronic kidney disease; E11.51 Type 2 diabetes mellitus with diabetic peripheral angiopathy without gangrene; I73.9 Peripheral vascular disease, unspecified; Z89.512 Acquired absence of left leg below knee; Z88.2 Allergy status to sulfonamides; Z91.048 Other nonmedicinal substance allergy status; Z88.8 Allergy status to other drugs, medicaments and biological substances; Z79.899 Other long term (current) drug therapy; Z79.4 Long term (current) use of insulin
CPT/HCPCS: 73562-LT; 80053; 83880; 85025; 85651; 86140; 93971; 99284-25

== ENCOUNTER → 2021-04-14 | Outpatient (CLI) | payer MEDICARE, OTHER ==
[~2021-04-14] MED LIST changes: +AMLO10 PO; +ESCI5 PO; +GABA300 PO; +INSULANI; +LOSARTAN POTAS100 M1 PO; +Lasix20 MG PO
[2021-04-14 06:28] LABS: BASOPHILS ABSOLUTE AUTO 0.05 K/mm3 (0.00-0.23); BASOPHILS PERCENT AUTO 1 % (0-2); EOSINOPHILS ABSOLUTE AUTO 0.23 K/mm3 (0.00-0.68); EOSINOPHILS PERCENT AUTO 4 % (0-6); Hematocrit 29.3 % (33.0-51.0); Hemoglobin 9.5 g/dL (11.5-16.0); IMMATURE GRAN ABSOLUTE AUTO 0.04 K/mm3 (0.00-0.10); IMMATURE GRAN PERCENT AUTO 1 % (0-1); LYMPHOCYTES ABSOLUTE AUTO 1.49 K/mm3 (0.84-5.20); LYMPHOCYTES PERCENT AUTO 25 % (21-46); MONOCYTES ABSOLUTE AUTO 0.52 K/mm3 (0.16-1.47); MONOCYTES PERCENT AUTO 9 % (4-13); Mean Corpuscular HGB 27.5 pg (26.0-34.0); Mean Corpuscular HGB Conc 32.4 g/dL (31.5-36.5); Mean Corpuscular Volume 85 fL (80-100); Mean Platelet Volume 11.8 fL (9.1-12.4); NEUTROPHILS ABSOLUTE AUTO 3.62 K/mm3 (1.96-9.15); NEUTROPHILS PERCENT AUTO 61 % (41-73); Platelet Count 263 K/mm3 (150-400); RDW Coefficient Variation 14.8 % (11.7-14.2); Red Blood Cell Count 3.45 M/mm3 (3.80-5.20); White Blood Cell Count 5.95 K/mm3 (4.00-11.30)
[2021-04-14 06:40] LABS: Anion Gap 3 mmol/L (6-16); Blood Urea Nitrogen 33 mg/dL (8-24); Bun/Creatinine Ratio 40.8 (12.0-20.0); C-REACTIVE PROTEIN, EXT RANGE 0.823 mg/dL (0.000-0.300); CO2, Blood 28 mmol/L (21-32); Chloride, Blood 109 mmol/L (98-108); Creatinine, Blood 0.81 mg/dL (0.40-1.00); Glomerular Filtration Rate >60 (60-); Glucose, Blood 174 mg/dL (70-99); Potassium, Blood 4.4 mmol/L (3.5-5.5); Sodium, Blood 140 mmol/L (136-145)
== END ==
LOC: LAB UVN 06:12 → EDSTATUS 14:27
PROVIDERS: Family Medicine
DX: E11.621 Type 2 diabetes mellitus with foot ulcer (principal); Z79.4 Long term (current) use of insulin; Z88.2 Allergy status to sulfonamides; Z91.041 Radiographic dye allergy status; Z91.048 Other nonmedicinal substance allergy status
CPT/HCPCS: 80048; 85025; 85651; 86140

== ENCOUNTER 2021-04-19 00:30 | Day surgery (SDC) | payer MEDICARE, OTHER | END 2021-04-19 23:26 | disposition home or self-care (01) | LOC: WOUND 00:30 | DX: E11.621 Type 2 diabetes mellitus with foot ulcer (principal); L97.412 Non-pressure chronic ulcer of right heel and midfoot with fat layer exposed; I87.2 Venous insufficiency (chronic) (peripheral); T87.89 Other complications of amputation stump; S80.11XA Contusion of right lower leg, initial encounter; X58.XXXA Exposure to other specified factors, initial encounter; Z89.512 Acquired absence of left leg below knee; I44.2 Atrioventricular block, complete; Z95.0 Presence of cardiac pacemaker; I10 Essential (primary) hypertension; E11.51 Type 2 diabetes mellitus with diabetic peripheral angiopathy without gangrene | CPT/HCPCS: 10140; A9270 ==

== ENCOUNTER 2021-04-26 01:16 | Day surgery (SDC) | payer MEDICARE, OTHER | END 2021-04-26 23:03 | disposition home or self-care (01) | LOC: WOUND 01:16 | DX: E11.622 Type 2 diabetes mellitus with other skin ulcer (principal); L97.815 Non-pressure chronic ulcer of other part of right lower leg with muscle involvement without evidence of necrosis; E11.621 Type 2 diabetes mellitus with foot ulcer; L97.412 Non-pressure chronic ulcer of right heel and midfoot with fat layer exposed; S80.11XD Contusion of right lower leg, subsequent encounter; I87.2 Venous insufficiency (chronic) (peripheral); T87.89 Other complications of amputation stump; Z89.512 Acquired absence of left leg below knee; I44.2 Atrioventricular block, complete; Z95.0 Presence of cardiac pacemaker; I10 Essential (primary) hypertension; E11.51 Type 2 diabetes mellitus with diabetic peripheral angiopathy without gangrene | CPT/HCPCS: A9270; G0463 ==

== ENCOUNTER 2021-05-10 04:41 | Day surgery (SDC) | payer MEDICARE, OTHER | END 2021-05-10 22:43 | disposition home or self-care (01) | LOC: WOUND 04:41 | DX: E11.622 Type 2 diabetes mellitus with other skin ulcer (principal); L97.815 Non-pressure chronic ulcer of other part of right lower leg with muscle involvement without evidence of necrosis; E11.621 Type 2 diabetes mellitus with foot ulcer; L97.412 Non-pressure chronic ulcer of right heel and midfoot with fat layer exposed; T87.89 Other complications of amputation stump; S80.11XD Contusion of right lower leg, subsequent encounter; X58.XXXD Exposure to other specified factors, subsequent encounter; I87.2 Venous insufficiency (chronic) (peripheral); Z89.512 Acquired absence of left leg below knee | CPT/HCPCS: A9270 ==

== ENCOUNTER → 2021-05-14 | Outpatient (CLI) | payer MEDICARE, OTHER ==
[~2021-05-14] MED LIST changes: +Aspir 8181 MG PO; +CODACE30 PO; +DULCOLAX400 MG/5 M PO; +Doxycycline Mo100 M1 PO; -INSULANI; +INSULANI SC; +METO100 PO; +TORSE20 PO; +Vitamin D1000 UNI1 PO; +[UNRECOGNIZED DRUG - OTHER] PO
[2021-05-14 05:54] LABS: Hematocrit 29.2 % (33.0-51.0); Hemoglobin 9.1 g/dL (11.5-16.0); Mean Corpuscular HGB 26.8 pg (26.0-34.0); Mean Corpuscular HGB Conc 31.2 g/dL (31.5-36.5); Mean Corpuscular Volume 86 fL (80-100); Mean Platelet Volume 11.4 fL (9.1-12.4); Platelet Count 355 K/mm3 (150-400); RDW Coefficient Variation 15.7 % (11.7-14.2); RDW Standard Deviation 48.6 fL (35.1-46.3); Red Blood Cell Count 3.39 M/mm3 (3.80-5.20)
[2021-05-14 06:03] LABS: Anion Gap 3 mmol/L (6-16); Blood Urea Nitrogen 23 mg/dL (8-24); Bun/Creatinine Ratio 30.7 (12.0-20.0); CO2, Blood 28 mmol/L (21-32); Calcium, Blood 9.1 mg/dL (8.5-10.1); Chloride, Blood 110 mmol/L (98-108); Creatinine, Blood 0.75 mg/dL (0.40-1.00); Glomerular Filtration Rate >60 (60-); Glucose, Blood 130 mg/dL (70-99); Potassium, Blood 4.2 mmol/L (3.5-5.5); Sodium, Blood 141 mmol/L (136-145)
[2021-05-14 06:10] LABS: International Normalized Ratio 1.09; Prothrombin Time Results 11.4 Sec (9.7-11.5)
== END ==
LOC: LAB UVN 05:00 → EDSTATUS 15:17
PROVIDERS: Internal Medicine
DX: N18.9 Chronic kidney disease, unspecified (principal); D63.1 Anemia in chronic kidney disease
CPT/HCPCS: 80048; 83036; 85027; 85610

== ENCOUNTER 2021-05-17 01:46 | Day surgery (SDC) | payer MEDICARE, OTHER ==
[~2021-05-17 01:46] MED LIST changes: -Aspir 8181 MG PO; -CODACE30 PO; -DULCOLAX400 MG/5 M PO; -Doxycycline Mo100 M1 PO; +INSULANI; -INSULANI SC; -METO100 PO; -TORSE20 PO; -Vitamin D1000 UNI1 PO; -[UNRECOGNIZED DRUG - OTHER] PO
== END 2021-05-17 22:59 | disposition home or self-care (01) ==
LOC: WOUND
DX: E11.621 Type 2 diabetes mellitus with foot ulcer (principal); L97.412 Non-pressure chronic ulcer of right heel and midfoot with fat layer exposed; E11.622 Type 2 diabetes mellitus with other skin ulcer; L97.812 Non-pressure chronic ulcer of other part of right lower leg with fat layer exposed; S80.11XD Contusion of right lower leg, subsequent encounter; X58.XXXD Exposure to other specified factors, subsequent encounter; I87.2 Venous insufficiency (chronic) (peripheral); T87.89 Other complications of amputation stump; Z89.512 Acquired absence of left leg below knee; I44.2 Atrioventricular block, complete; Z95.0 Presence of cardiac pacemaker; I10 Essential (primary) hypertension; E11.51 Type 2 diabetes mellitus with diabetic peripheral angiopathy without gangrene
CPT/HCPCS: A9270

== ENCOUNTER 2021-05-24 01:36 | Day surgery (SDC) | payer MEDICARE, OTHER ==
[~2021-05-24 01:36] MED LIST changes: -Aspir 8181 MG PO; -CODACE30 PO; -DULCOLAX400 MG/5 M PO; -Doxycycline Mo100 M1 PO; +INSULANI; -INSULANI SC; -METO100 PO; -TORSE20 PO; -Vitamin D1000 UNI1 PO; -[UNRECOGNIZED DRUG - OTHER] PO
== END 2021-05-24 22:44 | disposition home or self-care (01) ==
LOC: WOUND 01:36
DX: E11.622 Type 2 diabetes mellitus with other skin ulcer (principal); L97.815 Non-pressure chronic ulcer of other part of right lower leg with muscle involvement without evidence of necrosis; E11.621 Type 2 diabetes mellitus with foot ulcer; L97.412 Non-pressure chronic ulcer of right heel and midfoot with fat layer exposed; I48.91 Unspecified atrial fibrillation
CPT/HCPCS: A9270; G0463

== ENCOUNTER → 2021-05-24 | Outpatient (CLI) | payer MEDICARE, OTHER ==
[~2021-05-24] MED LIST changes: +Aspir 8181 MG PO; +CODACE30 PO; +DULCOLAX400 MG/5 M PO; +Doxycycline Mo100 M1 PO; -INSULANI; +INSULANI SC; +METO100 PO; +TORSE20 PO; +Vitamin D1000 UNI1 PO; +[UNRECOGNIZED DRUG - OTHER] PO
[2021-05-24 10:02] LABS: Hematocrit 29.1 % (33.0-51.0); Hemoglobin 9.3 g/dL (11.5-16.0); Mean Corpuscular HGB 27.4 pg (26.0-34.0); Mean Corpuscular Volume 86 fL (80-100); Mean Platelet Volume 11.9 fL (9.1-12.4); Platelet Count 219 K/mm3 (150-400); RDW Coefficient Variation 15.7 % (11.7-14.2); Red Blood Cell Count 3.39 M/mm3 (3.80-5.20); White Blood Cell Count 6.03 K/mm3 (4.00-11.30)
[2021-05-24 10:20] LABS: Anion Gap 3 mmol/L (6-16); Blood Urea Nitrogen 29 mg/dL (8-24); Bun/Creatinine Ratio 37.6 (12.0-20.0); CO2, Blood 27 mmol/L (21-32); Calcium, Blood 8.8 mg/dL (8.5-10.1); Chloride, Blood 111 mmol/L (98-108); Creatinine, Blood 0.77 mg/dL (0.40-1.00); Glomerular Filtration Rate >60 (60-); Glucose, Blood 170 mg/dL (70-99); Potassium, Blood 4.2 mmol/L (3.5-5.5); Sodium, Blood 141 mmol/L (136-145)
== END | disposition home or self-care (01) ==
LOC: LAB UVN 07:54 → EDSTATUS 12:45
PROVIDERS: Internal Medicine
DX: S91.301A Unspecified open wound, right foot, initial encounter (principal); I48.20 Chronic atrial fibrillation, unspecified; I10 Essential (primary) hypertension; D64.9 Anemia, unspecified
CPT/HCPCS: 80048; 85027

== ENCOUNTER → 2021-05-27 | Outpatient (CLI) | payer MEDICARE, OTHER ==
[~2021-05-27] MED LIST changes: +Aspir 8181 MG PO; +CODACE30 PO; +DULCOLAX400 MG/5 M PO; +Doxycycline Mo100 M1 PO; -INSULANI; +INSULANI SC; +METO100 PO; +TORSE20 PO; +Vitamin D1000 UNI1 PO; +[UNRECOGNIZED DRUG - OTHER] PO
[2021-05-27 08:14] LABS: CHOL/HDL RATIO 3.6; Cholesterol 189 mg/dL (50-200); HDL Cholesterol 53 mg/dL (>39); LDL/HDL RATIO 2.2; Low Density Lipoprotein Chol 116 mg/dL (0-110); Triglycerides 99 mg/dL (30-160); Very Low Density Lipoprot Chol 19 mg/dL (6-32)
== END | disposition home or self-care (01) ==
LOC: LAB UVN 05:30 → EDSTATUS 12:46
PROVIDERS: Internal Medicine
DX: E11.59 Type 2 diabetes mellitus with other circulatory complications (principal); I73.9 Peripheral vascular disease, unspecified; Z79.4 Long term (current) use of insulin
CPT/HCPCS: 80061; 84443

== ENCOUNTER 2021-05-31 03:21 | Day surgery (SDC) | payer MEDICARE, OTHER ==
[~2021-05-31 03:21] MED LIST changes: -Aspir 8181 MG PO; -CODACE30 PO; -DULCOLAX400 MG/5 M PO; -Doxycycline Mo100 M1 PO; +INSULANI; -INSULANI SC; -METO100 PO; -TORSE20 PO; -Vitamin D1000 UNI1 PO; -[UNRECOGNIZED DRUG - OTHER] PO
== END 2021-05-31 23:38 | disposition home or self-care (01) ==
LOC: WOUND 03:21
DX: E11.621 Type 2 diabetes mellitus with foot ulcer (principal); L97.412 Non-pressure chronic ulcer of right heel and midfoot with fat layer exposed; E11.622 Type 2 diabetes mellitus with other skin ulcer; L97.815 Non-pressure chronic ulcer of other part of right lower leg with muscle involvement without evidence of necrosis; L97.812 Non-pressure chronic ulcer of other part of right lower leg with fat layer exposed; I87.2 Venous insufficiency (chronic) (peripheral); E11.40 Type 2 diabetes mellitus with diabetic neuropathy, unspecified; Z89.512 Acquired absence of left leg below knee
CPT/HCPCS: A9270; G0463

== ENCOUNTER 2021-06-07 04:34 | Day surgery (SDC) | payer MEDICARE, OTHER ==
[~2021-06-07 04:34] MED LIST changes: -INSULANI; +INSULANI SC
== END 2021-06-07 22:48 | disposition home or self-care (01) ==
LOC: WOUND 04:34
DX: E11.621 Type 2 diabetes mellitus with foot ulcer (principal); L97.412 Non-pressure chronic ulcer of right heel and midfoot with fat layer exposed; E11.622 Type 2 diabetes mellitus with other skin ulcer; L97.812 Non-pressure chronic ulcer of other part of right lower leg with fat layer exposed; L89.893 Pressure ulcer of other site, stage 3; S80.11XD Contusion of right lower leg, subsequent encounter; X58.XXXD Exposure to other specified factors, subsequent encounter; E11.40 Type 2 diabetes mellitus with diabetic neuropathy, unspecified; I87.2 Venous insufficiency (chronic) (peripheral); Z89.512 Acquired absence of left leg below knee
CPT/HCPCS: A9270; G0463

== ENCOUNTER 2021-06-09 08:57 | Inpatient (IN) | payer MEDICARE, OTHER ==
[~2021-06-09] VITALS: Ht 170.2 cm; Wt 97.3 kg
[2021-06-09 09:31] LABS: BASOPHILS ABSOLUTE AUTO 0.08 K/mm3 (0.00-0.23); BASOPHILS PERCENT AUTO 1 % (0-2); EOSINOPHILS ABSOLUTE AUTO 0.09 K/mm3 (0.00-0.68); EOSINOPHILS PERCENT AUTO 1 % (0-6); Hematocrit 33.1 % (33.0-51.0); Hemoglobin 10.3 g/dL (11.5-16.0); IMMATURE GRAN ABSOLUTE AUTO 0.04 K/mm3 (0.00-0.10); IMMATURE GRAN PERCENT AUTO 1 % (0-1); LYMPHOCYTES PERCENT AUTO 14 % (21-46); MONOCYTES ABSOLUTE AUTO 0.63 K/mm3 (0.16-1.47); MONOCYTES PERCENT AUTO 7 % (4-13); Mean Corpuscular HGB Conc 31.1 g/dL (31.5-36.5); Mean Corpuscular Volume 87 fL (80-100); Mean Platelet Volume 10.9 fL (9.1-12.4); NEUTROPHILS ABSOLUTE AUTO 6.75 K/mm3 (1.96-9.15); NEUTROPHILS PERCENT AUTO 77 % (41-73); Platelet Count 290 K/mm3 (150-400); RDW Coefficient Variation 15.8 % (11.7-14.2); RDW Standard Deviation 50.1 fL (35.1-46.3); Red Blood Cell Count 3.82 M/mm3 (3.80-5.20); White Blood Cell Count 8.79 K/mm3 (4.00-11.30)
[2021-06-09] MEDS ORDERED: Aspir 8181 MG PO (09:37)
[2021-06-09] MEDS ORDERED: METO100 PO (09:38)
[2021-06-09] MEDS ORDERED: Doxycycline Mo100 M1 PO (09:40)
[2021-06-09 09:54] LABS: Alanine Aminotransfer (ALT/SGP 15 U/L (12-78); Albumin, Blood 2.7 g/dL (3.4-5.0); Albumin/Globulin Ratio 0.7 (0.8-1.8); Alk Phos 110 U/L (50-136); Anion Gap 4 mmol/L (6-16); Aspartate Aminotrans (AST/SGOT 12 U/L (12-37); Bilirubin, Total 0.6 mg/dL (0.1-1.0); Blood Urea Nitrogen 35 mg/dL (8-24); Bun/Creatinine Ratio 37.4 (12.0-20.0); CO2, Blood 26 mmol/L (21-32); Calcium, Blood 8.8 mg/dL (8.5-10.1); Chloride, Blood 106 mmol/L (98-108); Creatinine, Blood 0.94 mg/dL (0.40-1.00); Globulin, Blood 3.9 g/dL (2.2-4.0); Glomerular Filtration Rate 57 (60-); Glucose, Blood 194 mg/dL (70-99); Potassium, Blood 4.9 mmol/L (3.5-5.5); Sodium, Blood 136 mmol/L (136-145); Total Protein, Blood 6.6 g/dL (6.4-8.2); Troponin I <0.015 ng/mL (0.000-0.040)
[2021-06-09 10:20] LABS: Influenza A, PCR NEGATIVE (NEGATIVE); Influenza B, PCR NEGATIVE (NEGATIVE); Resp Syncytial Virus, PCR NEGATIVE (NEGATIVE); SARS-Cov-2 (COVID-19) PCR, MMC NEGATIVE (NEGATIVE)
--- NOTE | 2021-06-09 14:43 | NUR ---
PT ARRIVED TO FLOOR AT 1355. REPORT RECEIVED FROM ED RN RUBENS. PT A/O X 4, PLEASANT AND COOPERATIVE. PT ON 3 LPM VIA NC SATS 94%. NO S/S OF RESP DISTRESS AT THIS TIME. PT ORIENTED TO ROOM, CALL LIGHT. BED IN LOW POSITION. BED ALARM ON. PT DENIES PAIN, N/V, SOB.
[2021-06-09] MEDS ORDERED: METO50ER PO (15:22)
[2021-06-09] MEDS ORDERED: ACET325 PO (15:23)
[2021-06-09] MEDS ORDERED: BISA10S PR (15:24)
[2021-06-09] MEDS ORDERED: DULCOLAX400 MG/5 M PO (15:25)
[2021-06-09] MEDS ORDERED: CODACE30 PO (15:26)
[2021-06-09] MEDS ORDERED: [UNRECOGNIZED DRUG - OTHER] PO (15:27)
--- NOTE | 2021-06-09 16:28 | NUR ---
PT REPORTED SHE TOOK INSULIN GLARGINE BUT COULD NOT REMEMBER DOSE. RN OVER AT [facility] STATED 10 UNITS DAILY OVER THE PHONE BUT HAD HER FAX MARS TO VERIFY. MARS REPORTED GLARGINE 5 UNITS SC BID. MED REC UPDATED TO REFLECT THIS.
--- NOTE | 2021-06-09 18:59 | NUR ---
SHIFT SUMMARY: PT A/O X 3, BEDREST AT THIS TIME, PLEASANT AND COOPERATIVE. PT HAS REDNESS TO BOTTOM, R HEEL PRESSURE SORE. REDNESS AND SORE TO LOMAX. PHOTOS TAKEN AND IN CHART. PT ON 3 LPM VIA NC, FAIR APPETITE. BS STABLE, VS STABLE AT THIS TIME.
[2021-06-10 05:02] LABS: BASOPHILS ABSOLUTE AUTO 0.05 K/mm3 (0.00-0.23); BASOPHILS PERCENT AUTO 1 % (0-2); EOSINOPHILS ABSOLUTE AUTO 0.26 K/mm3 (0.00-0.68); EOSINOPHILS PERCENT AUTO 4 % (0-6); Hematocrit 31.9 % (33.0-51.0); Hemoglobin 9.7 g/dL (11.5-16.0); IMMATURE GRAN ABSOLUTE AUTO 0.03 K/mm3 (0.00-0.10); IMMATURE GRAN PERCENT AUTO 1 % (0-1); LYMPHOCYTES ABSOLUTE AUTO 1.57 K/mm3 (0.84-5.20); LYMPHOCYTES PERCENT AUTO 26 % (21-46); MONOCYTES ABSOLUTE AUTO 0.64 K/mm3 (0.16-1.47); MONOCYTES PERCENT AUTO 10 % (4-13); Mean Corpuscular HGB 27.2 pg (26.0-34.0); Mean Corpuscular HGB Conc 30.4 g/dL (31.5-36.5); Mean Corpuscular Volume 89 fL (80-100); Mean Platelet Volume 10.8 fL (9.1-12.4); NEUTROPHILS ABSOLUTE AUTO 3.59 K/mm3 (1.96-9.15); NEUTROPHILS PERCENT AUTO 59 % (41-73); Platelet Count 271 K/mm3 (150-400); RDW Coefficient Variation 15.6 % (11.7-14.2); RDW Standard Deviation 51.1 fL (35.1-46.3); Red Blood Cell Count 3.57 M/mm3 (3.80-5.20); White Blood Cell Count 6.14 K/mm3 (4.00-11.30)
[2021-06-10 05:35] LABS: Albumin, Blood 2.5 g/dL (3.4-5.0); Albumin/Globulin Ratio 0.8 (0.8-1.8); Bilirubin, Total 0.5 mg/dL (0.1-1.0); Bun/Creatinine Ratio 39.8 (12.0-20.0); Calcium, Blood 8.9 mg/dL (8.5-10.1); Creatinine, Blood 0.93 mg/dL (0.40-1.00); Globulin, Blood 3.2 g/dL (2.2-4.0); Potassium, Blood 4.6 mmol/L (3.5-5.5); Total Protein, Blood 5.7 g/dL (6.4-8.2)
--- NOTE | 2021-06-10 05:47 | NUR ---
ALBERTO HAD NO COMPLAINTS OF PAIN OR DISCOMFORT OVERNIGHT. SHE SLEPT WELL, AND HAD ONLY ONE EPISODE OF INCONTINENCE, THEN USED BEDPAN FOR VERY LARGE VOID. RIGHT LOMAX AND HEEL DRESSINGS ARE CLEAN,DRY AND INTACT. BOTTOM IS RED, AND PINK CREAM MIXED WITH SILICONE WERE APPLIED FOR PROTECTION.. ALBERTO IS VERY CONCERNED ABOUT THE MEDICATIONS SHE IS RECEIVING AT [facility], ESPECIALLY HER ANTIDEPRESSENT. SHE WOULD LIKE TO WEAN OFF THEM.
--- NOTE | 2021-06-10 09:06 | NUR ---
TALKED TO ABOUT V.S. 120/57-61 WITH PULSE RUNNING LOW 60'S TO HIGH 50'S. HOLD LOSARTAN AND METORPOLOL AND GIVE NORVASC. PATIENT ALSO STS ALLERGY TO SHORT ACTING INSULIN AND NOT GIVEN THIS AM. SHORT ACTING NOT ON MED REC. OK TO CANCEL SHORT ACTING
--- NOTE | 2021-06-10 12:33 | NUR ---
TALKED TO ABOUT V.S. 149/61-59. HOLD Etreasurebox XL
--- NOTE | 2021-06-10 18:20 | NUR ---
ALERT. ORIENTED. IV LT F.A. PATENT. WOUNDS WERE CHANGED YESTERDAY NOT CHANGED TODAY. WOUND CONSULT IN FOR SUNDAY. ONE PERSON ASSIST W/BEDPAN. PACEMAKER. UNLABORED RESPIRATIONS. DENIES ANY PAIN. WCTM
--- NOTE | 2021-06-11 05:13 | NUR ---
SHIFT SUMMARY PT. AOX3 ADMITTED FOR DYSPNEA/HYPOXIC. PT. HAS A PACEMAKER, DM2. LEFT BKA WITH 1 ASSIST TO BEDPAN AND WILTON. 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 LEFT PE SHOWN ON XRAY AND POSSIBLE D/C SUNDAY. PT. RESTED WELL AND USED THE CALL LIGHT WHEN NEEDED. WILL CONTINUE TO MONITOR UNTIL REPORT IS GIVEN.
[2021-06-11 05:28] LABS: Hematocrit 29.8 % (33.0-51.0); Hemoglobin 8.9 g/dL (11.5-16.0); Mean Corpuscular HGB Conc 29.9 g/dL (31.5-36.5); Mean Corpuscular Volume 90 fL (80-100); Mean Platelet Volume 10.9 fL (9.1-12.4); Platelet Count 254 K/mm3 (150-400); RDW Coefficient Variation 15.2 % (11.7-14.2); RDW Standard Deviation 50.4 fL (35.1-46.3); White Blood Cell Count 5.92 K/mm3 (4.00-11.30)
[2021-06-11 06:21] LABS: Anion Gap 4 mmol/L (6-16); Blood Urea Nitrogen 31 mg/dL (8-24); Bun/Creatinine Ratio 37.1 (12.0-20.0); CO2, Blood 27 mmol/L (21-32); Calcium, Blood 8.5 mg/dL (8.5-10.1); Chloride, Blood 108 mmol/L (98-108); Creatinine, Blood 0.84 mg/dL (0.40-1.00); Glomerular Filtration Rate >60 (60-); Glucose, Blood 155 mg/dL (70-99); Potassium, Blood 4.7 mmol/L (3.5-5.5); Sodium, Blood 139 mmol/L (136-145)
--- NOTE | 2021-06-11 17:51 | NUR ---
PT AOX3 AND COOPERATIVE OF CARE. PT DOING WELL TODAY AND WILL CALL APPROPRIATELY. PT DOING WELL MAINTAINING O2 IN THE 90s ON ROOM AIR TODAY. NO DISTRESS NOTED. CALL LIGHT WITHIN REACH WILL CONTINUE TO MONITOR.
--- NOTE | 2021-06-12 05:16 | NUR ---
SHIFT SUMMARY PT HAD A NONE EVENTFUL NIGHT AND RESTED WELL THIS SHIFT. DENIES ANY NEEDS AND THIS NURSE WILL CONTINUE TO MONITOR UNTIL REPORT IS GIVEN.
[2021-06-12] MEDS ORDERED: Vitamin D1000 UNI1 PO (11:30)
[2021-06-12] MEDS ORDERED: TORSE20 PO (11:30)
--- NOTE | 2021-06-12 12:29 | NUR ---
SPOKE WITH SHIRAZ AT [facility] AND JONI WITH STEPTOE COORDINATOR, PER SHIRAZ DANIELS FOR PT TO RETURN TO [facility]. PT WILL NEED A COVID TEST AND ORDERS FAXED AND TRANSPORT TO BE CALLED. PT TO D/C TO ROOM 22 AT [facility].
[2021-06-12 13:26] LABS: Influenza A, PCR NEGATIVE (NEGATIVE); Influenza B, PCR NEGATIVE (NEGATIVE); Resp Syncytial Virus, PCR NEGATIVE (NEGATIVE); SARS-Cov-2 (COVID-19) PCR, MMC NEGATIVE (NEGATIVE)
--- NOTE | 2021-06-12 15:37 | NUR ---
PT TRANSFERED TO [facility] AT 1525 VIA AMBULANCE. PT AOX3 AND COOPERATIVE OF CARE. PT DOING WELL AND DENIES ANY PAIN AT THIS TIME. PT CALLED APPROPRIAELY. NO DISTRESS NOTED AT THIS TIME. PERSONAL BELONGINGS COLLECTED AND SENT WITH PT.
== END 2021-06-12 15:25 | disposition home or self-care (01) | DRG 291 ==
LOC: ER 08:57 → MEDS 12:28 → ER 13:48 → MEDS 13:48
PROVIDERS: Emergency Medicine; Nurse Practitioner Acute Care; ADMIT Internal Medicine
DX: I11.0 Hypertensive heart disease with heart failure (principal); I50.33 Acute on chronic diastolic (congestive) heart failure; J96.01 Acute respiratory failure with hypoxia; I44.2 Atrioventricular block, complete; Z20.822 Contact with and (suspected) exposure to COVID-19; D63.8 Anemia in other chronic diseases classified elsewhere; E11.51 Type 2 diabetes mellitus with diabetic peripheral angiopathy without gangrene; M19.90 Unspecified osteoarthritis, unspecified site; I87.8 Other specified disorders of veins; I27.21 Secondary pulmonary arterial hypertension; E66.01 Morbid (severe) obesity due to excess calories; G89.29 Other chronic pain; E11.42 Type 2 diabetes mellitus with diabetic polyneuropathy; Z66 Do not resuscitate; Z74.09 Other reduced mobility; Z95.0 Presence of cardiac pacemaker; Z89.512 Acquired absence of left leg below knee; Z87.891 Personal history of nicotine dependence; Z79.899 Other long term (current) drug therapy; Z79.82 Long term (current) use of aspirin; Z79.4 Long term (current) use of insulin; Z88.2 Allergy status to sulfonamides; Z88.8 Allergy status to other drugs, medicaments and biological substances; Z79.891 Long term (current) use of opiate analgesic; Z68.32 Body mass index [BMI] 32.0-32.9, adult
CPT/HCPCS: 0241U; 36415; 71045; 80048; 80053; 82947; 83605; 83735; 83880; 84145; 84484; 85025; 85027; 92610; 93005; 93010; 93306; 94760; 94762; 96365; 96367; 99285-25; A9270; J0456; J0696; J1650; J1815; J1940; J7050

== ENCOUNTER 2021-06-17 01:34 | Day surgery (SDC) | payer MEDICARE, OTHER ==
[~2021-06-17 01:34] MED LIST changes: +Aspir 8181 MG PO; +CODACE30 PO; +DULCOLAX400 MG/5 M PO; +Doxycycline Mo100 M1 PO; +METO100 PO; +TORSE20 PO; +Vitamin D1000 UNI1 PO; +[UNRECOGNIZED DRUG - OTHER] PO
== END 2021-06-17 12:00 | disposition home or self-care (01) ==
LOC: WOUND
DX: E11.621 Type 2 diabetes mellitus with foot ulcer (principal); L97.412 Non-pressure chronic ulcer of right heel and midfoot with fat layer exposed; E11.622 Type 2 diabetes mellitus with other skin ulcer; L97.812 Non-pressure chronic ulcer of other part of right lower leg with fat layer exposed; S80.11XD Contusion of right lower leg, subsequent encounter; X58.XXXD Exposure to other specified factors, subsequent encounter; I87.2 Venous insufficiency (chronic) (peripheral); E11.40 Type 2 diabetes mellitus with diabetic neuropathy, unspecified; Z89.512 Acquired absence of left leg below knee; I44.2 Atrioventricular block, complete; Z95.0 Presence of cardiac pacemaker; I10 Essential (primary) hypertension; E11.51 Type 2 diabetes mellitus with diabetic peripheral angiopathy without gangrene
CPT/HCPCS: A9270

== ENCOUNTER → 2021-06-20 | Outpatient (CLI) | payer MEDICARE, OTHER ==
[2021-06-20 06:35] LABS: Hematocrit 34.4 % (33.0-51.0); Hemoglobin 10.8 g/dL (11.5-16.0); Mean Corpuscular HGB 27.6 pg (26.0-34.0); Mean Corpuscular HGB Conc 31.4 g/dL (31.5-36.5); Mean Corpuscular Volume 88 fL (80-100); Mean Platelet Volume 11.4 fL (9.1-12.4); Platelet Count 311 K/mm3 (150-400); RDW Coefficient Variation 14.7 % (11.7-14.2); RDW Standard Deviation 47.6 fL (35.1-46.3); Red Blood Cell Count 3.92 M/mm3 (3.80-5.20); White Blood Cell Count 6.38 K/mm3 (4.00-11.30)
[2021-06-20 07:33] LABS: Anion Gap 5 mmol/L (6-16); Blood Urea Nitrogen 28 mg/dL (8-24); Bun/Creatinine Ratio 32.6 (12.0-20.0); CO2, Blood 30 mmol/L (21-32); Calcium, Blood 9.4 mg/dL (8.5-10.1); Chloride, Blood 103 mmol/L (98-108); Creatinine, Blood 0.86 mg/dL (0.40-1.00); Glomerular Filtration Rate >60 (60-); Glucose, Blood 181 mg/dL (70-99); Sodium, Blood 138 mmol/L (136-145)
== END | disposition home or self-care (01) ==
LOC: LAB UVN 06:26 → EDSTATUS 10:35
PROVIDERS: Internal Medicine
DX: J96.01 Acute respiratory failure with hypoxia (principal); I50.33 Acute on chronic diastolic (congestive) heart failure
CPT/HCPCS: 80048; 85027

== ENCOUNTER 2021-06-22 08:31 | Day surgery (SDC) | payer MEDICARE, OTHER | END 2021-06-22 23:16 | disposition home or self-care (01) | LOC: WOUND 08:31 | DX: E11.621 Type 2 diabetes mellitus with foot ulcer (principal); L97.412 Non-pressure chronic ulcer of right heel and midfoot with fat layer exposed; S80.11XD Contusion of right lower leg, subsequent encounter; X58.XXXD Exposure to other specified factors, subsequent encounter; I87.2 Venous insufficiency (chronic) (peripheral); E11.622 Type 2 diabetes mellitus with other skin ulcer; E11.40 Type 2 diabetes mellitus with diabetic neuropathy, unspecified; Z89.512 Acquired absence of left leg below knee | CPT/HCPCS: G0463 ==

== ENCOUNTER 2021-07-01 05:08 | Day surgery (SDC) | payer MEDICARE, OTHER | END 2021-07-01 23:15 | disposition home or self-care (01) | LOC: WOUND 05:08 | DX: E11.621 Type 2 diabetes mellitus with foot ulcer (principal); L97.412 Non-pressure chronic ulcer of right heel and midfoot with fat layer exposed; E11.622 Type 2 diabetes mellitus with other skin ulcer; S80.11XD Contusion of right lower leg, subsequent encounter; X58.XXXD Exposure to other specified factors, subsequent encounter; I87.2 Venous insufficiency (chronic) (peripheral); E11.40 Type 2 diabetes mellitus with diabetic neuropathy, unspecified; Z89.512 Acquired absence of left leg below knee; I10 Essential (primary) hypertension; E11.51 Type 2 diabetes mellitus with diabetic peripheral angiopathy without gangrene; Z95.0 Presence of cardiac pacemaker | CPT/HCPCS: A9270; G0463 ==

== ENCOUNTER → 2021-07-13 | Outpatient (CLI) | payer MEDICARE, OTHER | LOC: LAB UVN 05:46 → EDSTATUS 13:12 | DX: E11.42 Type 2 diabetes mellitus with diabetic polyneuropathy (principal); I48.20 Chronic atrial fibrillation, unspecified | CPT/HCPCS: 83036 ==

== ENCOUNTER 2021-07-29 06:02 | Day surgery (SDC) | payer MEDICARE, OTHER | END 2021-07-29 23:43 | disposition home or self-care (01) | LOC: WOUND 06:02 | DX: E11.621 Type 2 diabetes mellitus with foot ulcer (principal); L97.412 Non-pressure chronic ulcer of right heel and midfoot with fat layer exposed; E11.622 Type 2 diabetes mellitus with other skin ulcer; E11.40 Type 2 diabetes mellitus with diabetic neuropathy, unspecified; E11.65 Type 2 diabetes mellitus with hyperglycemia; E11.51 Type 2 diabetes mellitus with diabetic peripheral angiopathy without gangrene; I87.2 Venous insufficiency (chronic) (peripheral); Z89.512 Acquired absence of left leg below knee; Z95.0 Presence of cardiac pacemaker | CPT/HCPCS: A9270; G0463 ==

== ENCOUNTER 2021-09-12 03:17 | Day surgery (SDC) | payer MEDICARE, OTHER | END 2021-09-12 23:37 | disposition home or self-care (01) | LOC: WOUND 03:17 | DX: E11.621 Type 2 diabetes mellitus with foot ulcer (principal); L97.412 Non-pressure chronic ulcer of right heel and midfoot with fat layer exposed; S80.11XD Contusion of right lower leg, subsequent encounter; I87.2 Venous insufficiency (chronic) (peripheral); E11.622 Type 2 diabetes mellitus with other skin ulcer; E11.40 Type 2 diabetes mellitus with diabetic neuropathy, unspecified; I10 Essential (primary) hypertension; E11.51 Type 2 diabetes mellitus with diabetic peripheral angiopathy without gangrene; Z89.512 Acquired absence of left leg below knee; Z95.0 Presence of cardiac pacemaker | CPT/HCPCS: A9270; G0463 ==

== ENCOUNTER 2021-10-19 01:26 | Day surgery (SDC) | payer MEDICARE, OTHER | END 2021-10-19 23:21 | disposition home or self-care (01) | LOC: WOUND 01:26 | DX: E11.621 Type 2 diabetes mellitus with foot ulcer (principal); L89.610 Pressure ulcer of right heel, unstageable; E11.40 Type 2 diabetes mellitus with diabetic neuropathy, unspecified; I87.2 Venous insufficiency (chronic) (peripheral); I10 Essential (primary) hypertension; E11.51 Type 2 diabetes mellitus with diabetic peripheral angiopathy without gangrene; Z89.512 Acquired absence of left leg below knee; Z87.891 Personal history of nicotine dependence | CPT/HCPCS: A9270; G0463 ==

== ENCOUNTER → 2021-10-30 | Outpatient (CLI) | payer MEDICARE, OTHER ==
[~2021-10-30] MED LIST changes: +ANTIFUNGAL POWD71 GM TOP; +ASPI81CH PO; +HUMALOG JU100 UNIT/2 SC; +LANTUS SOL100 UNIT/1 SC; +VISBIOME 112.51 EACH PO
[2021-10-30 06:16] LABS: Anion Gap 5 mmol/L (6-16); Blood Urea Nitrogen 31 mg/dL (8-24); Bun/Creatinine Ratio 39.8 (12.0-20.0); CHOL/HDL RATIO 3.7; CO2, Blood 25 mmol/L (21-32); Calcium, Blood 9.2 mg/dL (8.5-10.1); Chloride, Blood 109 mmol/L (98-108); Cholesterol 201 mg/dL (50-200); Creatinine, Blood 0.78 mg/dL (0.40-1.00); Glomerular Filtration Rate >60 (60-); Glucose, Blood 157 mg/dL (70-99); HDL Cholesterol 54 mg/dL (>39); LDL/HDL RATIO 2.4; Low Density Lipoprotein Chol 130 mg/dL (0-110); Potassium, Blood 5.3 mmol/L (3.5-5.5); Sodium, Blood 139 mmol/L (136-145); Thyroid Stimulating Hormone 0.518 uIU/mL (0.360-4.800); Triglycerides 83 mg/dL (30-160); Very Low Density Lipoprot Chol 16 mg/dL (6-32)
== END | disposition home or self-care (01) ==
LOC: LAB UVN 04:38 → EDSTATUS 14:26
PROVIDERS: Internal Medicine
DX: E11.42 Type 2 diabetes mellitus with diabetic polyneuropathy (principal); I25.10 Atherosclerotic heart disease of native coronary artery without angina pectoris
CPT/HCPCS: 80048; 80061; 84443

== ENCOUNTER 2021-11-02 03:03 | Day surgery (SDC) | payer MEDICARE, OTHER ==
[~2021-11-02 03:03] MED LIST changes: -ANTIFUNGAL POWD71 GM TOP; -ASPI81CH PO; -HUMALOG JU100 UNIT/2 SC; -LANTUS SOL100 UNIT/1 SC; -VISBIOME 112.51 EACH PO
== END 2021-11-02 23:13 | disposition home or self-care (01) ==
LOC: WOUND 03:03
DX: E11.621 Type 2 diabetes mellitus with foot ulcer (principal); L97.519 Non-pressure chronic ulcer of other part of right foot with unspecified severity; I87.2 Venous insufficiency (chronic) (peripheral); E11.40 Type 2 diabetes mellitus with diabetic neuropathy, unspecified; I10 Essential (primary) hypertension; Z89.512 Acquired absence of left leg below knee; Z95.0 Presence of cardiac pacemaker
CPT/HCPCS: G0463

== ENCOUNTER 2021-11-17 18:31 | Inpatient (IN) | payer MEDICARE, OTHER ==
[~2021-11-17] VITALS: Ht 162.6 cm; Wt 89.2 kg
[2021-11-17 19:51] LABS: BASOPHILS ABSOLUTE AUTO 0.05 K/mm3 (0.00-0.23); BASOPHILS PERCENT AUTO 0 % (0-2); EOSINOPHILS PERCENT AUTO 0 % (0-6); Hematocrit 32.5 % (33.0-51.0); Hemoglobin 10.7 g/dL (11.5-16.0); IMMATURE GRAN ABSOLUTE AUTO 0.19 K/mm3 (0.00-0.10); IMMATURE GRAN PERCENT AUTO 1 % (0-1); LYMPHOCYTES ABSOLUTE AUTO 0.65 K/mm3 (0.84-5.20); LYMPHOCYTES PERCENT AUTO 3 % (21-46); MONOCYTES ABSOLUTE AUTO 0.73 K/mm3 (0.16-1.47); MONOCYTES PERCENT AUTO 4 % (4-13); Mean Corpuscular HGB 28.4 pg (26.0-34.0); Mean Corpuscular HGB Conc 32.9 g/dL (31.5-36.5); Mean Corpuscular Volume 86 fL (80-100); Mean Platelet Volume 10.9 fL (9.1-12.4); NEUTROPHILS PERCENT AUTO 92 % (41-73); Platelet Count 242 K/mm3 (150-400); RDW Coefficient Variation 14.9 % (11.7-14.2); RDW Standard Deviation 47.8 fL (35.1-46.3); Red Blood Cell Count 3.77 M/mm3 (3.80-5.20); White Blood Cell Count 20.42 K/mm3 (4.00-11.30)
[2021-11-17 20:06] LABS: Alanine Aminotransfer (ALT/SGP 51 U/L (12-78); Albumin, Blood 3.1 g/dL (3.4-5.0); Albumin/Globulin Ratio 0.8 (0.8-1.8); Alk Phos 96 U/L (50-136); Anion Gap 9 mmol/L (6-16); Aspartate Aminotrans (AST/SGOT 47 U/L (12-37); Bilirubin, Total 0.7 mg/dL (0.1-1.0); Blood Urea Nitrogen 34 mg/dL (8-24); Bun/Creatinine Ratio 41.2 (12.0-20.0); CO2, Blood 22 mmol/L (21-32); Calcium, Blood 9.3 mg/dL (8.5-10.1); Chloride, Blood 103 mmol/L (98-108); Creatinine, Blood 0.83 mg/dL (0.40-1.00); Globulin, Blood 3.7 g/dL (2.2-4.0); Glomerular Filtration Rate >60 (60-); Glucose, Blood 298 mg/dL (70-99); Potassium, Blood 4.8 mmol/L (3.5-5.5); Sodium, Blood 134 mmol/L (136-145); Total Protein, Blood 6.8 g/dL (6.4-8.2)
[2021-11-17 21:24] LABS: Influenza A, PCR NEGATIVE (NEGATIVE); Influenza B, PCR NEGATIVE (NEGATIVE); Resp Syncytial Virus, PCR NEGATIVE (NEGATIVE); SARS-Cov-2 (COVID-19) PCR, MMC NEGATIVE (NEGATIVE)
[2021-11-17 21:36] LABS: Source, Urine Straight Cath
[2021-11-17 21:38] LABS: Bilirubin, Urine Neg (Neg); Blood, Urine 3+ (Neg); Glucose Qualitative, Urine Neg (Neg); Ketones, Urine 3+ (Neg); Leukocyte Esterase, Urine 2+ (Neg); Nitrite, Urine Neg (Neg); Protein, Urine 4+ (Neg); Specific Gravity, Urine 1.015 (1.003-1.022); Urobilinogen, Urine NORM (Normal)
[2021-11-17 21:57] LABS: Amorphous Light (0-Heavy); Appearance, Urine Hazy (Clear); Bacteria Many /hpf; Color, Urine Yellow (P-Yellow); Mucus Light (0-Heavy); Squamous Epithelial Cells Not Seen /hpf (Few); White Blood Cells, Urine TNTC /hpf (0-5)
--- NOTE | 2021-11-18 02:20 | NUR ---
Report recieved. Arrived to ICU. Admission assessment complete. alert and oriented. denies needs at this time.
[2021-11-18 03:15] LABS: BASOPHILS ABSOLUTE AUTO 0.04 K/mm3 (0.00-0.23); BASOPHILS PERCENT AUTO 0 % (0-2); EOSINOPHILS PERCENT AUTO 0 % (0-6); Hematocrit 32.5 % (33.0-51.0); Hemoglobin 10.4 g/dL (11.5-16.0); IMMATURE GRAN ABSOLUTE AUTO 0.11 K/mm3 (0.00-0.10); IMMATURE GRAN PERCENT AUTO 1 % (0-1); LYMPHOCYTES PERCENT AUTO 5 % (21-46); MONOCYTES ABSOLUTE AUTO 0.83 K/mm3 (0.16-1.47); MONOCYTES PERCENT AUTO 4 % (4-13); Mean Corpuscular HGB 28.7 pg (26.0-34.0); Mean Corpuscular Volume 90 fL (80-100); Mean Platelet Volume 10.8 fL (9.1-12.4); NEUTROPHILS ABSOLUTE AUTO 18.12 K/mm3 (1.96-9.15); NEUTROPHILS PERCENT AUTO 90 % (41-73); Platelet Count 220 K/mm3 (150-400); RDW Coefficient Variation 14.8 % (11.7-14.2); RDW Standard Deviation 48.5 fL (35.1-46.3); Red Blood Cell Count 3.63 M/mm3 (3.80-5.20)
[2021-11-18 03:34] LABS: Albumin, Blood 2.9 g/dL (3.4-5.0); Albumin/Globulin Ratio 0.8 (0.8-1.8); Bilirubin, Total 0.6 mg/dL (0.1-1.0); Calcium, Blood 8.6 mg/dL (8.5-10.1); Creatinine, Blood 0.97 mg/dL (0.40-1.00); Globulin, Blood 3.7 g/dL (2.2-4.0); Potassium, Blood 4.4 mmol/L (3.5-5.5); Total Protein, Blood 6.6 g/dL (6.4-8.2)
--- NOTE | 2021-11-18 04:45 | NUR ---
Dr Alvarez called regarding b/p. orders recieved.
--- NOTE | 2021-11-18 07:19 | NUR ---
TOOK OVER CARE OF PT AT 0700, PT RESTING ON 2L NC, 1MCG OF LEVO, SEE VITALS, 0715 PT INCREASED TO 2 MCG OF LEVO.
--- NOTE | 2021-11-18 07:19 | NUR ---
Resting with eyes closed since got settled into room with no distress. Levo started per eMAR. titrated down to 1mcg.
--- NOTE | 2021-11-18 16:55 | NUR ---
SUMMARY NEURO; PT A/O X4 WITH BASELINE NEUROPATHY CARDIAC; LEVO OFF AT AROUND 0800 11/18/21. ATRIAL PACED AT A RATE OF 60. NO COMPLAINTS OF CHEST PAIN TODAY. TRACE EDEMA BUE AND RLE. LEFT BKA. LUNGS; 2L NC. LUNGS CLEAR, DIMINISHED BASES. SKIN; RLE CASSANDRA. PINK/BLANCHABLE ON BOTTOM OF LEFT STUMP. GI; BM TODAY, MEDIUM SOFT FORMED. ; INCONTINENT AT BASELINE.
--- NOTE | 2021-11-18 22:16 | NUR ---
SHIFT ASSESSMENT ASSUMED CARE OF PT @ 1900. PT ALERT AND ORIENTED, SITTING UPRIGHT IN BED. FOLLOWING COMMANDS. NO COMPLAINTS AT THIS TIME. USING CALL LIGHT APPROPRIATELY. VSS. WILL CONTINUE TO MONITOR CLOSELY.
[2021-11-19 04:12] LABS: BASOPHILS ABSOLUTE AUTO 0.03 K/mm3 (0.00-0.23); BASOPHILS PERCENT AUTO 0 % (0-2); EOSINOPHILS PERCENT AUTO 2 % (0-6); Hemoglobin 9.2 g/dL (11.5-16.0); IMMATURE GRAN ABSOLUTE AUTO 0.05 K/mm3 (0.00-0.10); IMMATURE GRAN PERCENT AUTO 1 % (0-1); LYMPHOCYTES ABSOLUTE AUTO 1.63 K/mm3 (0.84-5.20); LYMPHOCYTES PERCENT AUTO 15 % (21-46); MONOCYTES ABSOLUTE AUTO 0.73 K/mm3 (0.16-1.47); MONOCYTES PERCENT AUTO 7 % (4-13); Mean Corpuscular HGB 28.6 pg (26.0-34.0); Mean Corpuscular HGB Conc 31.7 g/dL (31.5-36.5); Mean Corpuscular Volume 90 fL (80-100); Mean Platelet Volume 11.5 fL (9.1-12.4); NEUTROPHILS ABSOLUTE AUTO 8.28 K/mm3 (1.96-9.15); NEUTROPHILS PERCENT AUTO 76 % (41-73); Platelet Count 200 K/mm3 (150-400); RDW Coefficient Variation 14.9 % (11.7-14.2); RDW Standard Deviation 49.2 fL (35.1-46.3); Red Blood Cell Count 3.22 M/mm3 (3.80-5.20); White Blood Cell Count 10.92 K/mm3 (4.00-11.30)
[2021-11-19 04:34] LABS: Albumin, Blood 2.6 g/dL (3.4-5.0); Anion Gap 7 mmol/L (6-16); Blood Urea Nitrogen 47 mg/dL (8-24); Bun/Creatinine Ratio 44.8 (12.0-20.0); CO2, Blood 24 mmol/L (21-32); Calcium, Blood 8.5 mg/dL (8.5-10.1); Chloride, Blood 103 mmol/L (98-108); Creatinine, Blood 1.05 mg/dL (0.40-1.00); Glomerular Filtration Rate 50 (60-); Glucose, Blood 189 mg/dL (70-99); Magnesium, Blood 1.9 mg/dL (1.6-2.4); Phosphorus, Blood 3.2 mg/dL (2.5-4.9); Potassium, Blood 4.4 mmol/L (3.5-5.5); Sodium, Blood 134 mmol/L (136-145)
--- NOTE | 2021-11-19 06:27 | NUR ---
SHIFT SUMMARY NO ACUTE CHANGES IN PT CONDITION DURING THE NIGHT. PT ABLE TO SLEEP FOR MOST OF THE NIGHT. NO COMPLAINTS FROM PT AT THIS TIME. PT CURRENTLY SITTING UPRIGHT IN BED WATCHING MORNING NEWS.
--- NOTE | 2021-11-19 07:00 | NUR ---
TOOK OVER CARE OF PT AT 0700. PT RESTING ON 2LNC.
--- NOTE | 2021-11-19 12:44 | NUR ---
PT ARRIVED FROM ICU A TRANSFER. REVIEWED ASSESSMENT FROM PRIOR TO TRANSFER AND I AGREE WITH ALL OF THE ASSESSMENTS MADE. UPON AUSCULTATION, HOWEVER, I DID HEAR LLL CRACKLES, SLIGHT. OTHER THAN THAT, THE INITIAL ASSESSMENT DONE THIS AM IN THE ICU PRIOR TO TRANSFER IS IN ACCORDANCE WITH MY ASSESSMENT DONE UPON HER ARRIVAL TO MEDICAL FLOOR.
--- NOTE | 2021-11-19 17:49 | NUR ---
SHIFT SUMMARY PT ARRIVED FROM ICU THIS AM. PT WAS ADMITTED FOR ACUTE ENCEPHALOPATHY, ALTERED LOC, SOB. 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 PT ALSO HAS A SEVERE UTI, POSSIBLE SEPSIS. PT IS BEING TREATED WITH ABX. SHE IS A LIFT ASSIST AND SHE IS INCONTINENT WITH A PUREWICK IN PLACE. SHE HAS A PACEMAKER, PACING THE ATRIAL. SHE IS A DNR/DNI, BRACELETS ARE IN PLACE. SHE DOES HAVE SOME REDNESS IN THE PERIAREA, KEEPING THE SKIN CDI. SHE IS A DIABETIC, ACHS CHECKS, SHE IS ALSO ON AN ADA DIET. SHE IS ALSO LEARY ABOUT TAKING MEDICATIONS, SHE BELIEVES INSULIN AND ABX CAUSE CONSTIPATION. WILL CONTINUE TO MONITOR AND ASSESS UNTIL NOC SHIFT ARRIVES.
--- NOTE | 2021-11-19 18:13 | NUR ---
I HAVE REVIEWED ALL THE ETHNOGRAPHER DOCUMENTATION DONE BY EBONY TODAY AND AM IN AGGREEMENT WITH IT.
[2021-11-20 04:36] LABS: BASOPHILS ABSOLUTE AUTO 0.04 K/mm3 (0.00-0.23); BASOPHILS PERCENT AUTO 1 % (0-2); EOSINOPHILS ABSOLUTE AUTO 0.19 K/mm3 (0.00-0.68); EOSINOPHILS PERCENT AUTO 3 % (0-6); Hematocrit 30.4 % (33.0-51.0); Hemoglobin 9.7 g/dL (11.5-16.0); IMMATURE GRAN ABSOLUTE AUTO 0.05 K/mm3 (0.00-0.10); IMMATURE GRAN PERCENT AUTO 1 % (0-1); LYMPHOCYTES ABSOLUTE AUTO 1.81 K/mm3 (0.84-5.20); LYMPHOCYTES PERCENT AUTO 30 % (21-46); MONOCYTES ABSOLUTE AUTO 0.52 K/mm3 (0.16-1.47); MONOCYTES PERCENT AUTO 9 % (4-13); Mean Corpuscular HGB Conc 31.9 g/dL (31.5-36.5); Mean Corpuscular Volume 88 fL (80-100); Mean Platelet Volume 11.6 fL (9.1-12.4); NEUTROPHILS ABSOLUTE AUTO 3.38 K/mm3 (1.96-9.15); NEUTROPHILS PERCENT AUTO 56 % (41-73); Platelet Count 254 K/mm3 (150-400); RDW Coefficient Variation 14.5 % (11.7-14.2); RDW Standard Deviation 47.1 fL (35.1-46.3); Red Blood Cell Count 3.46 M/mm3 (3.80-5.20); White Blood Cell Count 5.99 K/mm3 (4.00-11.30)
[2021-11-20 05:03] LABS: Albumin, Blood 2.8 g/dL (3.4-5.0); Anion Gap 6 mmol/L (6-16); Blood Urea Nitrogen 42 mg/dL (8-24); CO2, Blood 27 mmol/L (21-32); Calcium, Blood 9.2 mg/dL (8.5-10.1); Chloride, Blood 100 mmol/L (98-108); Creatinine, Blood 0.86 mg/dL (0.40-1.00); Glomerular Filtration Rate >60 (60-); Glucose, Blood 254 mg/dL (70-99); Phosphorus, Blood 2.9 mg/dL (2.5-4.9); Potassium, Blood 4.2 mmol/L (3.5-5.5); Sodium, Blood 133 mmol/L (136-145)
--- NOTE | 2021-11-20 06:42 | NUR ---
SHIFT SUMMARY: PATIENT IS A&O X3, REPORTED A HEADACHE AT START OF SHIFT. TYLENOL WAS GIVEN WITH GOOD EFFECT. PERWICK IS IN PLACE FOR URINARY INC. AND WAS CHANGED. BP IS ELEVATED, SCHEDULED LOPRESSOR WAS GIVEN WITH POOR EFFECT. SOME REDDNESS OBSERVED UNDER PANUS AND BUTTOCKS. ORDER WAS OBTAINED FOR ANTI FUNGAL POWDER. BUTTOCKS IS BLANCHABLE.
--- NOTE | 2021-11-20 18:23 | NUR ---
END OF THIS SUMMARY Pt doing well this shift, resting comfortably all day. IV ABX administred. Pt hesitant to take morning meds, but did take all her medications as ordered. Urine culture positive for ESBL, CONTACT precautions initiated. Purewick in place, adequte urine outpit this shift. SBP 171-180, HR 58-60. CBGs 238-262, SSI given.
--- NOTE | 2021-11-21 04:37 | NUR ---
SUMMARY: PT A/OX3, IS PLEASANT AND COOPERATIVE W/CARE AND CALLS APPROPRIATELY TO SPECIFY NEEDS. SHE'S CHAIR BOUND W/L.BKA AND TURN SCHEDULE MAINTAINED. PUREWIC CATH IN PLACE AND USED BEDPAN FOR X1 SM.BM THIS SHIFT. CONTACT ISO IN PLACE FOR ESBL IN URINE, ABX RECIEVED PER EMAR. PT REQUESTED TYLENOL FOR TOLERABLE RELIEF OF CHRONIC GENERALISED PAIN. SHE TOOK MEDS W/O ISSUE THIS SHIFT AND DIDN'T SHOW ANY HESITANCY. NO ACUTE CHANGES, VSS/AFEBRILE. BP REMAINS HYPERTENSIVE BUT IMPROVES SOME AFTER SCHEDULED MEDS. NO S/S CARDIAC DISTRESS. WCTM AND REPORT TO DAY RN.
[2021-11-21 05:16] LABS: Hematocrit 30.1 % (33.0-51.0); Hemoglobin 9.8 g/dL (11.5-16.0); Mean Corpuscular HGB 28.3 pg (26.0-34.0); Mean Corpuscular HGB Conc 32.6 g/dL (31.5-36.5); Mean Corpuscular Volume 87 fL (80-100); Mean Platelet Volume 11.2 fL (9.1-12.4); Platelet Count 283 K/mm3 (150-400); RDW Coefficient Variation 14.4 % (11.7-14.2); RDW Standard Deviation 46.4 fL (35.1-46.3); Red Blood Cell Count 3.46 M/mm3 (3.80-5.20); White Blood Cell Count 5.61 K/mm3 (4.00-11.30)
[2021-11-21 05:48] LABS: Anion Gap 7 mmol/L (6-16); Blood Urea Nitrogen 31 mg/dL (8-24); CO2, Blood 27 mmol/L (21-32); Calcium, Blood 9.1 mg/dL (8.5-10.1); Chloride, Blood 103 mmol/L (98-108); Creatinine, Blood 0.72 mg/dL (0.40-1.00); Glomerular Filtration Rate >60 (60-); Glucose, Blood 210 mg/dL (70-99); Potassium, Blood 4.1 mmol/L (3.5-5.5); Sodium, Blood 137 mmol/L (136-145)
--- NOTE | 2021-11-21 17:48 | NUR ---
SHIFT SUMMARY PT AXO, PLEASANT AND COOPERATIVE WITH CARE THOUGH [facility]. PT COMPLAINS OF CONSTIPATION, MEDICATED PER EMAR THOUGH PT HAS HAD 2 BMS, HARD AND FORMED, DR NGUYEN AWARE. DR NGUYEN ALSO NOTIFED OF PT BP AT 1632 OF 177/66 AND PT COMPLAINS OF MIGRAINE. NO OTHER CHANGES THIS SHIFT. PT DENIES N/V AND SOB. BED IN LOW POSITION, CALL LIGHT WITHIN REACH.
[2021-11-22 05:38] LABS: BASOPHILS ABSOLUTE AUTO 0.07 K/mm3 (0.00-0.23); BASOPHILS PERCENT AUTO 1 % (0-2); EOSINOPHILS ABSOLUTE AUTO 0.19 K/mm3 (0.00-0.68); EOSINOPHILS PERCENT AUTO 3 % (0-6); Hematocrit 31.8 % (33.0-51.0); Hemoglobin 10.5 g/dL (11.5-16.0); IMMATURE GRAN ABSOLUTE AUTO 0.28 K/mm3 (0.00-0.10); IMMATURE GRAN PERCENT AUTO 4 % (0-1); LYMPHOCYTES ABSOLUTE AUTO 1.86 K/mm3 (0.84-5.20); LYMPHOCYTES PERCENT AUTO 27 % (21-46); MONOCYTES ABSOLUTE AUTO 0.68 K/mm3 (0.16-1.47); MONOCYTES PERCENT AUTO 10 % (4-13); Mean Corpuscular HGB 28.2 pg (26.0-34.0); Mean Corpuscular Volume 85 fL (80-100); Mean Platelet Volume 10.1 fL (9.1-12.4); NEUTROPHILS ABSOLUTE AUTO 3.87 K/mm3 (1.96-9.15); NEUTROPHILS PERCENT AUTO 56 % (41-73); Platelet Count 323 K/mm3 (150-400); RDW Coefficient Variation 14.5 % (11.7-14.2); RDW Standard Deviation 45.1 fL (35.1-46.3); Red Blood Cell Count 3.73 M/mm3 (3.80-5.20); White Blood Cell Count 6.95 K/mm3 (4.00-11.30)
--- NOTE | 2021-11-22 05:58 | NUR ---
SHIFT SUMMARY NOC: PT HAD ELEVATED BP THIS MORNING 180/60, PRESSURE CHECKED ON BOTH ARMS. MD AHMADI UPDATED. NEW ORDERS. HYDRALAZINE 10 MG IV PRN GIVEN. BP RECHECK 153/61. PT ALSO HAD COMPLAINTS OF HEADACHE. PRN TYLENOL GIVEN PT NOW IN BED SLEEPING.
[2021-11-22 06:00] LABS: Anion Gap 8 mmol/L (6-16); Blood Urea Nitrogen 26 mg/dL (8-24); Bun/Creatinine Ratio 35.2 (12.0-20.0); CO2, Blood 27 mmol/L (21-32); Calcium, Blood 9.4 mg/dL (8.5-10.1); Chloride, Blood 102 mmol/L (98-108); Creatinine, Blood 0.74 mg/dL (0.40-1.00); Glomerular Filtration Rate >60 (60-); Glucose, Blood 252 mg/dL (70-99); Potassium, Blood 4.2 mmol/L (3.5-5.5); Sodium, Blood 137 mmol/L (136-145)
--- NOTE | 2021-11-22 12:41 | NUR ---
CALLED DR NGUYEN FOR POSSIBLE PT/OT, NO PT/OT, WILL HAVE PATIENT OOB TO THE CHAIR AND SEE HOW SHE DOES
--- NOTE | 2021-11-22 18:51 | NUR ---
ALERT AND ORIENTED, FORGETFUL AND EASILY DISTRACTED, PLEASANT TO CARE, OOB IN CHAIR DURING THE DAY PER DR NGUYEN, PATIENT COMPLAINS OF HEADACHE AND REPORTS IT IS ALWAYS THERE, [facility] REPORTS THE SAME AND THAT SHE JUST TAKES TYLENOL FOR IT, 2 PERSON MAX ASSIST FOR TRANSFERS TO BED OR TO CHAIR, BS 245, COVERED FOR DINNER. CALL LIGHT WITH IN REACH, WILL RELAY TO PM RN
--- NOTE | 2021-11-23 04:58 | NUR ---
SHIFT SUMMARY NOC: PT SHOWS INTERMITTENT CONFUSION BUTIS COMPLIANT WITH CARE. NO ADVERSE EVENTS ON NOC SHIFT.
[2021-11-23 05:10] LABS: BASOPHILS ABSOLUTE AUTO 0.07 K/mm3 (0.00-0.23); BASOPHILS PERCENT AUTO 1 % (0-2); EOSINOPHILS ABSOLUTE AUTO 0.22 K/mm3 (0.00-0.68); EOSINOPHILS PERCENT AUTO 3 % (0-6); Hematocrit 31.7 % (33.0-51.0); Hemoglobin 10.3 g/dL (11.5-16.0); IMMATURE GRAN ABSOLUTE AUTO 0.31 K/mm3 (0.00-0.10); IMMATURE GRAN PERCENT AUTO 4 % (0-1); LYMPHOCYTES ABSOLUTE AUTO 1.78 K/mm3 (0.84-5.20); LYMPHOCYTES PERCENT AUTO 23 % (21-46); MONOCYTES ABSOLUTE AUTO 0.69 K/mm3 (0.16-1.47); MONOCYTES PERCENT AUTO 9 % (4-13); Mean Corpuscular HGB Conc 32.5 g/dL (31.5-36.5); Mean Corpuscular Volume 86 fL (80-100); Mean Platelet Volume 10.1 fL (9.1-12.4); NEUTROPHILS ABSOLUTE AUTO 4.67 K/mm3 (1.96-9.15); NEUTROPHILS PERCENT AUTO 60 % (41-73); Platelet Count 335 K/mm3 (150-400); RDW Coefficient Variation 14.6 % (11.7-14.2); RDW Standard Deviation 46.5 fL (35.1-46.3); Red Blood Cell Count 3.68 M/mm3 (3.80-5.20); White Blood Cell Count 7.74 K/mm3 (4.00-11.30)
[2021-11-23 05:32] LABS: Anion Gap 7 mmol/L (6-16); Blood Urea Nitrogen 27 mg/dL (8-24); Bun/Creatinine Ratio 34.4 (12.0-20.0); CO2, Blood 28 mmol/L (21-32); Calcium, Blood 9.4 mg/dL (8.5-10.1); Chloride, Blood 101 mmol/L (98-108); Creatinine, Blood 0.79 mg/dL (0.40-1.00); Glomerular Filtration Rate >60 (60-); Glucose, Blood 187 mg/dL (70-99); Magnesium, Blood 1.9 mg/dL (1.6-2.4); Potassium, Blood 4.1 mmol/L (3.5-5.5); Sodium, Blood 136 mmol/L (136-145)
--- NOTE | 2021-11-23 16:42 | NUR ---
PT IS A/OX4, PLEASANT AND COOPERATIVE, UTE, PT HAS A LEFT BKA UP WITH OVERHEAD LIFT PT UP IN THE CHAIR TODAY FOR LUNCH AND SEVERAL HOURS AFTER. PT COMPLAINED OF GENERALIZED PAIN, HOWEVER DECLINED TO TAKE TYLENOL. THE PT APPEARS TO BE BREATHING EASILY ON RA AT THIS TIME. CALL LIGHT IN REACH. WILL CONTINUE TO MONITOR AND ASSESS FOR CHANGES
--- NOTE | 2021-11-24 04:33 | NUR ---
Patient with VSS on RA overnight. Contact isolation maintained for EBSl. Patient turned Q2 hr overnight. No acute skin issues noted. Purewick in place. patient with clear, yellow urine. MInimal c/o pain or discomfort. patient awaiting placement at this time.
--- NOTE | 2021-11-24 13:51 | NUR ---
am assessment I AGREE WITH AND WAS PRESENT DURING THE STUDENT RN COCO'S AM ASSESSMENT AND HAVE REVIEWED AND AGREE WITH HER DOCUMENTATION ON THIS PATIENT
--- NOTE | 2021-11-24 16:14 | NUR ---
SHIFT SUMMARY PT IS A/O X 4. CALM AND COOPERATIVE WITH CARE. PT COMPLAINED OF MIGRAINE TO DR COREA. TYLENOL #3 ORDERED AND GIVEN. PT REPORTED RELIEF. UP TO CHAIR WITH CEILING LIFT D/T L BKA. PURE WICK IN PLACE, DRAINING YELLOW AND CLEAR URINE. LAST DOSE OF ANTIBIOTIC THIS PM. PLAN [place] [facility]
--- NOTE | 2021-11-25 06:40 | NUR ---
SHIFT SUMMARY - NO ACUTE CHANGES THIS SHIFT. PT HAS SLEPT THROUGHOUT MOST OF THE NIGHT - RESPONDS APPROPRIATELY TO VERBAL COMMUNICATION. PT IS ELY SHOSHONE. PT IN CONTACT ISOLATION FOR ESBL. PT DENIED ANY COMPLAINTS OF PAIN, EXCEPT A MILD HEADACHE, THAT PT DECLINED PAIN MEDICATION FOR. FLUIDS AT BEDSIDE. CALL LIGHT WITHIN REACH. BED IN LOW POSITION.
[2021-11-25] MEDS ORDERED: ASPI81CH PO (09:17)
[2021-11-25] MEDS ORDERED: LANTUS SOL100 UNIT/1 SC (09:18)
[2021-11-25] MEDS ORDERED: HUMALOG JU100 UNIT/2 SC (09:26)
[2021-11-25] MEDS ORDERED: ANTIFUNGAL POWD71 GM TOP (09:28)
[2021-11-25] MEDS ORDERED: ONDA4ODT MM (09:29)
[2021-11-25] MEDS ORDERED: VISBIOME 112.51 EACH PO (09:29)
[2021-11-25] MEDS ORDERED: MIRALAX17 GM PO (09:29)
[2021-11-25 10:50] LABS: Influenza A, PCR NEGATIVE (NEGATIVE); Influenza B, PCR NEGATIVE (NEGATIVE); Resp Syncytial Virus, PCR NEGATIVE (NEGATIVE); SARS-Cov-2 (COVID-19) PCR, MMC NEGATIVE (NEGATIVE)
--- NOTE | 2021-11-25 12:16 | NUR ---
called report CALLED REPORT TO RN AT [facility]. PT TO BE TRANSPORTED AROUND 1230 TODAY
--- NOTE | 2021-11-25 13:07 | NUR ---
PT TRANSFERED TO [facility] VIA W/C. ACCOMPAINED BY AMBULANCE [facility]. APPEARED TO BE BREATHING EASILY ON RA. BELONGINGS WITH PT.
== END 2021-11-25 13:09 | DRG 871 ==
LOC: ER 18:31 → ICUE 21:48 → MEDS 21:48 → ICUW 11-18 00:40 → ICUE 11-18 02:10 → MEDS 11-19 11:13 → ENPENDDIS 11-25 09:49 → MEDS 11-25 13:09
PROVIDERS: Emergency Medicine; Internal Medicine; ADMIT Internal Medicine
PROC: 3E033XZ Introduction of Vasopressor into Peripheral Vein, Percutaneous Approach (ICD-10-PCS; principal; 2021-11-17)
PROC: 3E03329 Introduction of Other Anti-infective into Peripheral Vein, Percutaneous Approach (ICD-10-PCS; 2021-11-17)
DX: A41.59 Other Gram-negative sepsis (principal); R65.21 Severe sepsis with septic shock; I21.A1 Myocardial infarction type 2; G93.41 Metabolic encephalopathy; N39.0 Urinary tract infection, site not specified; Z66 Do not resuscitate; I13.0 Hypertensive heart and chronic kidney disease with heart failure and stage 1 through stage 4 chronic kidney disease, or unspecified chronic kidney disease; N17.9 Acute kidney failure, unspecified; Z16.12 Extended spectrum beta lactamase (ESBL) resistance; Z20.822 Contact with and (suspected) exposure to COVID-19; I50.9 Heart failure, unspecified; I25.10 Atherosclerotic heart disease of native coronary artery without angina pectoris; Z68.37 Body mass index [BMI] 37.0-37.9, adult; B96.4 Proteus (mirabilis) (morganii) as the cause of diseases classified elsewhere; E11.51 Type 2 diabetes mellitus with diabetic peripheral angiopathy without gangrene; I73.9 Peripheral vascular disease, unspecified; I27.21 Secondary pulmonary arterial hypertension; E66.01 Morbid (severe) obesity due to excess calories; E11.42 Type 2 diabetes mellitus with diabetic polyneuropathy; M54.2 Cervicalgia; D63.1 Anemia in chronic kidney disease; G89.4 Chronic pain syndrome; N18.30 Chronic kidney disease, stage 3 unspecified; M19.90 Unspecified osteoarthritis, unspecified site; Z88.2 Allergy status to sulfonamides; Z88.1 Allergy status to other antibiotic agents; Z88.8 Allergy status to other drugs, medicaments and biological substances; Z95.0 Presence of cardiac pacemaker; Z89.512 Acquired absence of left leg below knee; Z91.048 Other nonmedicinal substance allergy status; Z79.82 Long term (current) use of aspirin; Z79.4 Long term (current) use of insulin; Z79.899 Other long term (current) drug therapy; Z90.49 Acquired absence of other specified parts of digestive tract
CPT/HCPCS: 0241U; 36415; 51798; 71045; 80048; 80053; 80069; 81001; 82947; 83605; 83735; 83880; 84484; 85025; 85027; 87040; 87077; 87086; 87147; 87186; 93005; 93010; 93306; 96374; 96375; 99285-25; A9270; J0360; J0696; J1650; J1815; J1940; J2185; J7030; J7040; J7060

== ENCOUNTER 2022-05-31 00:36 | Day surgery (SDC) | payer MEDICARE, OTHER ==
[~2022-05-31 00:36] MED LIST changes: +ANTIFUNGAL POWD71 GM TOP; +ASPI81CH PO; +HUMALOG JU100 UNIT/2 SC; +LANTUS SOL100 UNIT/1 SC; +VISBIOME 112.51 EACH PO
== END 2022-05-31 23:36 | disposition home or self-care (01) ==
LOC: WOUND 00:36
DX: E11.621 Type 2 diabetes mellitus with foot ulcer (principal); L97.419 Non-pressure chronic ulcer of right heel and midfoot with unspecified severity; I10 Essential (primary) hypertension; E11.51 Type 2 diabetes mellitus with diabetic peripheral angiopathy without gangrene; E11.36 Type 2 diabetes mellitus with diabetic cataract; H26.9 Unspecified cataract; Z95.0 Presence of cardiac pacemaker; Z88.2 Allergy status to sulfonamides; Z88.8 Allergy status to other drugs, medicaments and biological substances; Z88.1 Allergy status to other antibiotic agents; Z87.891 Personal history of nicotine dependence
CPT/HCPCS: G0463

== ENCOUNTER 2022-06-07 01:06 | Day surgery (SDC) | payer MEDICARE, OTHER | END 2022-06-07 23:13 | disposition home or self-care (01) | LOC: WOUND 01:06 | DX: E11.621 Type 2 diabetes mellitus with foot ulcer (principal); L97.412 Non-pressure chronic ulcer of right heel and midfoot with fat layer exposed; L97.512 Non-pressure chronic ulcer of other part of right foot with fat layer exposed; I10 Essential (primary) hypertension; Z95.0 Presence of cardiac pacemaker; E11.51 Type 2 diabetes mellitus with diabetic peripheral angiopathy without gangrene; I87.2 Venous insufficiency (chronic) (peripheral); E11.40 Type 2 diabetes mellitus with diabetic neuropathy, unspecified | CPT/HCPCS: A9270; G0463 ==

== ENCOUNTER 2022-06-14 02:24 | Day surgery (SDC) | payer MEDICARE, OTHER | END 2022-06-14 23:03 | disposition home or self-care (01) | LOC: WOUND 02:24 | DX: E11.621 Type 2 diabetes mellitus with foot ulcer (principal); L97.512 Non-pressure chronic ulcer of other part of right foot with fat layer exposed; Z95.0 Presence of cardiac pacemaker; E11.51 Type 2 diabetes mellitus with diabetic peripheral angiopathy without gangrene; Z89.512 Acquired absence of left leg below knee; E11.40 Type 2 diabetes mellitus with diabetic neuropathy, unspecified | CPT/HCPCS: A9270; G0463 ==

== ENCOUNTER 2022-06-20 02:29 | Day surgery (SDC) | payer MEDICARE, OTHER | END 2022-06-20 23:06 | disposition home or self-care (01) | LOC: WOUND 02:29 | DX: E11.621 Type 2 diabetes mellitus with foot ulcer (principal); L97.412 Non-pressure chronic ulcer of right heel and midfoot with fat layer exposed; Z89.512 Acquired absence of left leg below knee; I87.2 Venous insufficiency (chronic) (peripheral); E11.40 Type 2 diabetes mellitus with diabetic neuropathy, unspecified | CPT/HCPCS: A9270; G0463 ==

== ENCOUNTER 2022-06-26 01:25 | Day surgery (SDC) | payer MEDICARE, OTHER | END 2022-06-26 23:06 | disposition home or self-care (01) | LOC: WOUND 01:25 | DX: E11.621 Type 2 diabetes mellitus with foot ulcer (principal); L97.412 Non-pressure chronic ulcer of right heel and midfoot with fat layer exposed; L97.512 Non-pressure chronic ulcer of other part of right foot with fat layer exposed; I10 Essential (primary) hypertension; E11.51 Type 2 diabetes mellitus with diabetic peripheral angiopathy without gangrene; Z95.0 Presence of cardiac pacemaker; E11.40 Type 2 diabetes mellitus with diabetic neuropathy, unspecified ==

== ENCOUNTER 2022-07-03 01:13 | Day surgery (SDC) | payer MEDICARE, OTHER | END 2022-07-03 22:56 | disposition home or self-care (01) | LOC: WOUND 01:13 | DX: E11.621 Type 2 diabetes mellitus with foot ulcer (principal); L97.412 Non-pressure chronic ulcer of right heel and midfoot with fat layer exposed; L97.512 Non-pressure chronic ulcer of other part of right foot with fat layer exposed; Z95.0 Presence of cardiac pacemaker; I10 Essential (primary) hypertension; E11.51 Type 2 diabetes mellitus with diabetic peripheral angiopathy without gangrene; Z89.512 Acquired absence of left leg below knee; E11.40 Type 2 diabetes mellitus with diabetic neuropathy, unspecified; I87.2 Venous insufficiency (chronic) (peripheral) ==

== ENCOUNTER 2022-07-19 00:33 | Day surgery (SDC) | payer MEDICARE, OTHER | END 2022-07-19 23:11 | disposition home or self-care (01) | LOC: WOUND 00:33 | DX: E11.621 Type 2 diabetes mellitus with foot ulcer (principal); L97.412 Non-pressure chronic ulcer of right heel and midfoot with fat layer exposed; Z89.512 Acquired absence of left leg below knee; I87.2 Venous insufficiency (chronic) (peripheral); E11.40 Type 2 diabetes mellitus with diabetic neuropathy, unspecified | CPT/HCPCS: G0463 ==

== ENCOUNTER 2022-07-31 02:59 | Day surgery (SDC) | payer MEDICARE, OTHER | END 2022-07-31 23:08 | disposition home or self-care (01) | LOC: WOUND 02:59 | DX: E11.621 Type 2 diabetes mellitus with foot ulcer (principal); L97.412 Non-pressure chronic ulcer of right heel and midfoot with fat layer exposed; Z95.0 Presence of cardiac pacemaker; I10 Essential (primary) hypertension; E11.51 Type 2 diabetes mellitus with diabetic peripheral angiopathy without gangrene; E11.40 Type 2 diabetes mellitus with diabetic neuropathy, unspecified | CPT/HCPCS: A9270; G0463 ==

== ENCOUNTER 2022-08-07 01:14 | Day surgery (SDC) | payer MEDICARE, OTHER | END 2022-08-07 22:59 | disposition home or self-care (01) | LOC: WOUND 01:14 | DX: E11.621 Type 2 diabetes mellitus with foot ulcer (principal); L97.512 Non-pressure chronic ulcer of other part of right foot with fat layer exposed; I87.2 Venous insufficiency (chronic) (peripheral); E11.40 Type 2 diabetes mellitus with diabetic neuropathy, unspecified; Z89.512 Acquired absence of left leg below knee | CPT/HCPCS: A9270 ==

== ENCOUNTER 2022-08-21 00:20 | Day surgery (SDC) | payer MEDICARE, OTHER | END 2022-08-21 23:16 | disposition home or self-care (01) | LOC: WOUND 00:20 | DX: E11.621 Type 2 diabetes mellitus with foot ulcer (principal); L97.412 Non-pressure chronic ulcer of right heel and midfoot with fat layer exposed; Z95.0 Presence of cardiac pacemaker; I10 Essential (primary) hypertension; L97.512 Non-pressure chronic ulcer of other part of right foot with fat layer exposed; E11.51 Type 2 diabetes mellitus with diabetic peripheral angiopathy without gangrene; Z89.512 Acquired absence of left leg below knee; E11.40 Type 2 diabetes mellitus with diabetic neuropathy, unspecified | CPT/HCPCS: A9270; G0463 ==

== ENCOUNTER 2022-09-11 00:54 | Day surgery (SDC) | payer MEDICARE, OTHER | END 2022-09-11 23:40 | disposition home or self-care (01) | LOC: WOUND 00:54 | DX: E11.621 Type 2 diabetes mellitus with foot ulcer (principal); L97.515 Non-pressure chronic ulcer of other part of right foot with muscle involvement without evidence of necrosis; E11.40 Type 2 diabetes mellitus with diabetic neuropathy, unspecified; I87.2 Venous insufficiency (chronic) (peripheral); E11.51 Type 2 diabetes mellitus with diabetic peripheral angiopathy without gangrene; I10 Essential (primary) hypertension; Z89.512 Acquired absence of left leg below knee | CPT/HCPCS: A9270; G0463 ==

== ENCOUNTER 2022-09-18 01:11 | Day surgery (SDC) | payer MEDICARE, OTHER | END 2022-09-18 22:50 | disposition home or self-care (01) | LOC: WOUND 01:11 | DX: E11.621 Type 2 diabetes mellitus with foot ulcer (principal); L97.415 Non-pressure chronic ulcer of right heel and midfoot with muscle involvement without evidence of necrosis; L97.515 Non-pressure chronic ulcer of other part of right foot with muscle involvement without evidence of necrosis; E11.40 Type 2 diabetes mellitus with diabetic neuropathy, unspecified; I87.2 Venous insufficiency (chronic) (peripheral); Z89.512 Acquired absence of left leg below knee; I10 Essential (primary) hypertension; E11.51 Type 2 diabetes mellitus with diabetic peripheral angiopathy without gangrene; Z95.0 Presence of cardiac pacemaker | CPT/HCPCS: A9270; G0463 ==

== ENCOUNTER 2022-10-02 00:13 | Day surgery (SDC) | payer MEDICARE, OTHER | END 2022-10-02 23:14 | disposition home or self-care (01) | LOC: WOUND 00:13 | DX: E11.621 Type 2 diabetes mellitus with foot ulcer (principal); L97.512 Non-pressure chronic ulcer of other part of right foot with fat layer exposed; L89.899 Pressure ulcer of other site, unspecified stage; I87.2 Venous insufficiency (chronic) (peripheral); E11.40 Type 2 diabetes mellitus with diabetic neuropathy, unspecified; Z89.512 Acquired absence of left leg below knee | CPT/HCPCS: G0463 ==

== ENCOUNTER 2022-10-03 02:02 | Day surgery (SDC) | payer MEDICARE, OTHER | END 2022-10-03 22:48 | disposition home or self-care (01) | LOC: HBO 02:02 | DX: E11.621 Type 2 diabetes mellitus with foot ulcer (principal); L97.515 Non-pressure chronic ulcer of other part of right foot with muscle involvement without evidence of necrosis; Z89.512 Acquired absence of left leg below knee; I87.2 Venous insufficiency (chronic) (peripheral); E11.40 Type 2 diabetes mellitus with diabetic neuropathy, unspecified | CPT/HCPCS: 82947; G0277 ==

== ENCOUNTER 2022-10-04 00:48 | Day surgery (SDC) | payer MEDICARE, OTHER | END 2022-10-04 23:03 | disposition home or self-care (01) | LOC: HBO 00:48 | DX: E11.621 Type 2 diabetes mellitus with foot ulcer (principal); L97.515 Non-pressure chronic ulcer of other part of right foot with muscle involvement without evidence of necrosis; E11.40 Type 2 diabetes mellitus with diabetic neuropathy, unspecified; I87.2 Venous insufficiency (chronic) (peripheral); Z89.512 Acquired absence of left leg below knee | CPT/HCPCS: 82947; G0277 ==

== ENCOUNTER 2022-10-05 02:17 | Day surgery (SDC) | payer MEDICARE, OTHER | END 2022-10-05 22:49 | disposition home or self-care (01) | LOC: HBO | DX: E11.621 Type 2 diabetes mellitus with foot ulcer (principal); L97.515 Non-pressure chronic ulcer of other part of right foot with muscle involvement without evidence of necrosis; Z89.512 Acquired absence of left leg below knee; I87.2 Venous insufficiency (chronic) (peripheral); E11.40 Type 2 diabetes mellitus with diabetic neuropathy, unspecified | CPT/HCPCS: 82947; G0277 ==

== ENCOUNTER → 2022-10-05 | Outpatient (CLI) | payer MEDICARE, OTHER | LOC: PLD 10:26 → LAB SHORT 10:26 | DX: D48.5 Neoplasm of uncertain behavior of skin (principal) | CPT/HCPCS: 88305 ==

== ENCOUNTER 2022-10-06 02:22 | Day surgery (SDC) | payer MEDICARE, OTHER | END 2022-10-06 22:58 | disposition home or self-care (01) | LOC: HBO | DX: E11.621 Type 2 diabetes mellitus with foot ulcer (principal); L97.515 Non-pressure chronic ulcer of other part of right foot with muscle involvement without evidence of necrosis; Z89.512 Acquired absence of left leg below knee; I87.2 Venous insufficiency (chronic) (peripheral); E11.40 Type 2 diabetes mellitus with diabetic neuropathy, unspecified | CPT/HCPCS: 82947; G0277 ==

== ENCOUNTER 2022-10-16 00:36 | Day surgery (SDC) | payer MEDICARE, OTHER | END 2022-10-16 22:51 | disposition home or self-care (01) | LOC: WOUND 00:36 | DX: E11.621 Type 2 diabetes mellitus with foot ulcer (principal); L97.412 Non-pressure chronic ulcer of right heel and midfoot with fat layer exposed; L97.512 Non-pressure chronic ulcer of other part of right foot with fat layer exposed; Z95.0 Presence of cardiac pacemaker; I10 Essential (primary) hypertension; E11.51 Type 2 diabetes mellitus with diabetic peripheral angiopathy without gangrene; I87.2 Venous insufficiency (chronic) (peripheral); Z89.512 Acquired absence of left leg below knee | CPT/HCPCS: 82947; G0277; G0463 ==

== ENCOUNTER 2022-10-16 00:41 | Day surgery (SDC) | payer MEDICARE, OTHER | END 2022-10-16 22:51 | disposition home or self-care (01) | LOC: HBO 00:41 | DX: E11.621 Type 2 diabetes mellitus with foot ulcer (principal); L97.515 Non-pressure chronic ulcer of other part of right foot with muscle involvement without evidence of necrosis; Z89.512 Acquired absence of left leg below knee; I87.2 Venous insufficiency (chronic) (peripheral); E11.40 Type 2 diabetes mellitus with diabetic neuropathy, unspecified | CPT/HCPCS: 82947; G0277 ==

== ENCOUNTER 2022-10-18 02:25 | Day surgery (SDC) | payer MEDICARE, OTHER | END 2022-10-18 23:01 | disposition home or self-care (01) | LOC: HBO 02:25 | DX: E11.621 Type 2 diabetes mellitus with foot ulcer (principal); L97.515 Non-pressure chronic ulcer of other part of right foot with muscle involvement without evidence of necrosis; Z89.512 Acquired absence of left leg below knee; I87.2 Venous insufficiency (chronic) (peripheral); E11.40 Type 2 diabetes mellitus with diabetic neuropathy, unspecified | CPT/HCPCS: 82947; G0277 ==

== ENCOUNTER 2022-10-19 02:17 | Day surgery (SDC) | payer MEDICARE, OTHER | END 2022-10-19 22:50 | disposition home or self-care (01) | LOC: HBO 02:17 | DX: E11.621 Type 2 diabetes mellitus with foot ulcer (principal); L97.515 Non-pressure chronic ulcer of other part of right foot with muscle involvement without evidence of necrosis; I87.2 Venous insufficiency (chronic) (peripheral); Z89.512 Acquired absence of left leg below knee; E11.40 Type 2 diabetes mellitus with diabetic neuropathy, unspecified | CPT/HCPCS: 82947; G0277 ==

== ENCOUNTER 2022-10-20 02:18 | Day surgery (SDC) | payer MEDICARE, OTHER | END 2022-10-20 22:48 | disposition home or self-care (01) | LOC: HBO 02:18 | DX: E11.621 Type 2 diabetes mellitus with foot ulcer (principal); L97.515 Non-pressure chronic ulcer of other part of right foot with muscle involvement without evidence of necrosis; Z89.512 Acquired absence of left leg below knee; I87.2 Venous insufficiency (chronic) (peripheral); E11.40 Type 2 diabetes mellitus with diabetic neuropathy, unspecified | CPT/HCPCS: 82947; G0463 ==

== ENCOUNTER 2022-10-30 00:55 | Day surgery (SDC) | payer MEDICARE, OTHER | END 2022-10-30 22:39 | disposition home or self-care (01) | LOC: WOUND 00:55 | DX: E11.621 Type 2 diabetes mellitus with foot ulcer (principal); L97.512 Non-pressure chronic ulcer of other part of right foot with fat layer exposed; Z89.512 Acquired absence of left leg below knee; I87.2 Venous insufficiency (chronic) (peripheral); E11.40 Type 2 diabetes mellitus with diabetic neuropathy, unspecified | CPT/HCPCS: G0463 ==

== ENCOUNTER 2022-11-06 00:16 | Day surgery (SDC) | payer MEDICARE, OTHER | END 2022-11-06 22:57 | disposition home or self-care (01) | LOC: WOUND 00:16 | DX: E11.621 Type 2 diabetes mellitus with foot ulcer (principal); L97.413 Non-pressure chronic ulcer of right heel and midfoot with necrosis of muscle; L97.515 Non-pressure chronic ulcer of other part of right foot with muscle involvement without evidence of necrosis; L97.512 Non-pressure chronic ulcer of other part of right foot with fat layer exposed; Z89.512 Acquired absence of left leg below knee; I87.2 Venous insufficiency (chronic) (peripheral); E11.40 Type 2 diabetes mellitus with diabetic neuropathy, unspecified; I10 Essential (primary) hypertension | CPT/HCPCS: 82947; G0463 ==

== ENCOUNTER 2022-11-06 00:18 | Day surgery (SDC) | payer MEDICARE, OTHER | END 2022-11-06 22:58 | disposition home or self-care (01) | LOC: HBO 00:18 | DX: E11.621 Type 2 diabetes mellitus with foot ulcer (principal); L97.515 Non-pressure chronic ulcer of other part of right foot with muscle involvement without evidence of necrosis; Z89.512 Acquired absence of left leg below knee; I87.2 Venous insufficiency (chronic) (peripheral); E11.40 Type 2 diabetes mellitus with diabetic neuropathy, unspecified; L97.413 Non-pressure chronic ulcer of right heel and midfoot with necrosis of muscle; Z87.2 Personal history of diseases of the skin and subcutaneous tissue | CPT/HCPCS: 82947; G0277; G0463 ==

== ENCOUNTER 2022-11-07 02:20 | Day surgery (SDC) | payer MEDICARE, OTHER | END 2022-11-07 22:44 | disposition home or self-care (01) | LOC: HBO 02:20 | DX: E11.621 Type 2 diabetes mellitus with foot ulcer (principal); L97.515 Non-pressure chronic ulcer of other part of right foot with muscle involvement without evidence of necrosis; I87.2 Venous insufficiency (chronic) (peripheral); E11.40 Type 2 diabetes mellitus with diabetic neuropathy, unspecified; Z89.512 Acquired absence of left leg below knee | CPT/HCPCS: 82947; G0277 ==

== ENCOUNTER 2022-11-08 02:40 | Day surgery (SDC) | payer MEDICARE, OTHER | END 2022-11-08 23:31 | disposition home or self-care (01) | LOC: HBO 02:40 | DX: E11.621 Type 2 diabetes mellitus with foot ulcer (principal); L97.515 Non-pressure chronic ulcer of other part of right foot with muscle involvement without evidence of necrosis; I87.2 Venous insufficiency (chronic) (peripheral); E11.40 Type 2 diabetes mellitus with diabetic neuropathy, unspecified; Z89.512 Acquired absence of left leg below knee | CPT/HCPCS: 82947; G0277 ==

== ENCOUNTER 2022-11-09 02:46 | Day surgery (SDC) | payer MEDICARE, OTHER | END 2022-11-09 23:21 | disposition home or self-care (01) | LOC: HBO 02:46 | DX: E11.621 Type 2 diabetes mellitus with foot ulcer (principal); L97.515 Non-pressure chronic ulcer of other part of right foot with muscle involvement without evidence of necrosis; I87.2 Venous insufficiency (chronic) (peripheral); E11.40 Type 2 diabetes mellitus with diabetic neuropathy, unspecified; Z89.512 Acquired absence of left leg below knee | CPT/HCPCS: 82947; G0277 ==

== ENCOUNTER 2022-11-14 00:35 | Day surgery (SDC) | payer MEDICARE, OTHER | END 2022-11-14 22:43 | disposition home or self-care (01) | LOC: HBO 00:35 | DX: E11.621 Type 2 diabetes mellitus with foot ulcer (principal); L97.515 Non-pressure chronic ulcer of other part of right foot with muscle involvement without evidence of necrosis; I87.2 Venous insufficiency (chronic) (peripheral); E11.40 Type 2 diabetes mellitus with diabetic neuropathy, unspecified; Z89.512 Acquired absence of left leg below knee | CPT/HCPCS: 82947; G0277 ==

== ENCOUNTER 2022-11-15 03:20 | Day surgery (SDC) | payer MEDICARE, OTHER | END 2022-11-15 22:42 | disposition home or self-care (01) | LOC: HBO 03:20 | DX: E11.621 Type 2 diabetes mellitus with foot ulcer (principal); L97.515 Non-pressure chronic ulcer of other part of right foot with muscle involvement without evidence of necrosis; I87.2 Venous insufficiency (chronic) (peripheral); E11.40 Type 2 diabetes mellitus with diabetic neuropathy, unspecified; Z89.512 Acquired absence of left leg below knee | CPT/HCPCS: 82947; G0277 ==

== ENCOUNTER 2022-11-16 01:38 | Day surgery (SDC) | payer MEDICARE, OTHER | END 2022-11-16 22:55 | disposition home or self-care (01) | LOC: HBO 01:38 | DX: E11.621 Type 2 diabetes mellitus with foot ulcer (principal); L97.515 Non-pressure chronic ulcer of other part of right foot with muscle involvement without evidence of necrosis; I87.2 Venous insufficiency (chronic) (peripheral); E11.40 Type 2 diabetes mellitus with diabetic neuropathy, unspecified; Z89.512 Acquired absence of left leg below knee | CPT/HCPCS: 82947; G0277 ==

== ENCOUNTER 2022-11-20 02:11 | Day surgery (SDC) | payer MEDICARE, OTHER | END 2022-11-20 22:51 | disposition home or self-care (01) | LOC: HBO 02:11 | DX: E11.621 Type 2 diabetes mellitus with foot ulcer (principal); L97.515 Non-pressure chronic ulcer of other part of right foot with muscle involvement without evidence of necrosis; I87.2 Venous insufficiency (chronic) (peripheral); E11.40 Type 2 diabetes mellitus with diabetic neuropathy, unspecified; Z89.512 Acquired absence of left leg below knee; L97.412 Non-pressure chronic ulcer of right heel and midfoot with fat layer exposed; L97.512 Non-pressure chronic ulcer of other part of right foot with fat layer exposed | CPT/HCPCS: 82947; 87081; A9270; G0277; G0463 ==

== ENCOUNTER 2022-11-21 01:55 | Day surgery (SDC) | payer MEDICARE, OTHER | END 2022-11-21 22:56 | disposition home or self-care (01) | LOC: HBO 01:55 | DX: E11.621 Type 2 diabetes mellitus with foot ulcer (principal); L97.515 Non-pressure chronic ulcer of other part of right foot with muscle involvement without evidence of necrosis; I87.2 Venous insufficiency (chronic) (peripheral); E11.40 Type 2 diabetes mellitus with diabetic neuropathy, unspecified; Z89.512 Acquired absence of left leg below knee | CPT/HCPCS: 82947; G0277 ==

== ENCOUNTER 2022-11-22 05:33 | Day surgery (SDC) | payer MEDICARE, OTHER | END 2022-11-22 23:04 | disposition home or self-care (01) | LOC: HBO 05:33 | DX: E11.621 Type 2 diabetes mellitus with foot ulcer (principal); L97.515 Non-pressure chronic ulcer of other part of right foot with muscle involvement without evidence of necrosis; I87.2 Venous insufficiency (chronic) (peripheral); E11.40 Type 2 diabetes mellitus with diabetic neuropathy, unspecified; Z89.512 Acquired absence of left leg below knee | CPT/HCPCS: 82947; G0277 ==

== ENCOUNTER 2022-11-23 01:30 | Day surgery (SDC) | payer MEDICARE, OTHER | END 2022-11-23 23:07 | disposition home or self-care (01) | LOC: HBO 01:30 | DX: E11.621 Type 2 diabetes mellitus with foot ulcer (principal); L97.515 Non-pressure chronic ulcer of other part of right foot with muscle involvement without evidence of necrosis; Z89.512 Acquired absence of left leg below knee; E11.40 Type 2 diabetes mellitus with diabetic neuropathy, unspecified; I73.9 Peripheral vascular disease, unspecified | CPT/HCPCS: 82947; G0277 ==

== ENCOUNTER 2022-11-24 00:42 | Day surgery (SDC) | payer MEDICARE, OTHER | END 2022-11-25 22:41 | disposition home or self-care (01) | LOC: HBO 00:42 | DX: E11.621 Type 2 diabetes mellitus with foot ulcer (principal); L97.515 Non-pressure chronic ulcer of other part of right foot with muscle involvement without evidence of necrosis; Z89.512 Acquired absence of left leg below knee; I87.2 Venous insufficiency (chronic) (peripheral); E11.40 Type 2 diabetes mellitus with diabetic neuropathy, unspecified | CPT/HCPCS: 82947; G0277 ==

== ENCOUNTER → 2022-11-27 | Outpatient (CLI) | payer MEDICARE, OTHER | END | disposition home or self-care (01) | LOC: LAB 11:42 → LAB SHORT 11:42 | DX: L97.514 Non-pressure chronic ulcer of other part of right foot with necrosis of bone (principal) | CPT/HCPCS: 87070; 87075; 87205 ==

== ENCOUNTER 2022-12-04 01:25 | Day surgery (SDC) | payer MEDICARE, OTHER | END 2022-12-04 22:56 | disposition home or self-care (01) | LOC: WOUND 01:25 | DX: E11.621 Type 2 diabetes mellitus with foot ulcer (principal); L97.412 Non-pressure chronic ulcer of right heel and midfoot with fat layer exposed; L97.512 Non-pressure chronic ulcer of other part of right foot with fat layer exposed; Z89.512 Acquired absence of left leg below knee; I87.2 Venous insufficiency (chronic) (peripheral); E11.40 Type 2 diabetes mellitus with diabetic neuropathy, unspecified; J44.9 Chronic obstructive pulmonary disease, unspecified; Z95.0 Presence of cardiac pacemaker; I10 Essential (primary) hypertension; E11.51 Type 2 diabetes mellitus with diabetic peripheral angiopathy without gangrene | CPT/HCPCS: G0463 ==

== ENCOUNTER 2022-12-18 03:49 | Day surgery (SDC) | payer MEDICARE, OTHER | END 2022-12-18 23:11 | disposition home or self-care (01) | LOC: WOUND 03:49 | DX: E11.621 Type 2 diabetes mellitus with foot ulcer (principal); L97.515 Non-pressure chronic ulcer of other part of right foot with muscle involvement without evidence of necrosis; Z89.512 Acquired absence of left leg below knee; I87.2 Venous insufficiency (chronic) (peripheral); E11.40 Type 2 diabetes mellitus with diabetic neuropathy, unspecified; J44.9 Chronic obstructive pulmonary disease, unspecified | CPT/HCPCS: G0463 ==

== ENCOUNTER 2022-12-25 00:19 | Day surgery (SDC) | payer MEDICARE, OTHER | END 2022-12-25 23:00 | disposition home or self-care (01) | LOC: WOUND 00:19 | DX: E11.621 Type 2 diabetes mellitus with foot ulcer (principal); L97.412 Non-pressure chronic ulcer of right heel and midfoot with fat layer exposed; Z95.0 Presence of cardiac pacemaker; I10 Essential (primary) hypertension; E11.51 Type 2 diabetes mellitus with diabetic peripheral angiopathy without gangrene; L97.515 Non-pressure chronic ulcer of other part of right foot with muscle involvement without evidence of necrosis; Z89.512 Acquired absence of left leg below knee; I87.2 Venous insufficiency (chronic) (peripheral); E11.40 Type 2 diabetes mellitus with diabetic neuropathy, unspecified; J44.9 Chronic obstructive pulmonary disease, unspecified | CPT/HCPCS: G0463 ==